=== PATIENT | female | born 1965 | race Caucasian/White ===

== ENCOUNTER → 2017-02-15 | Outpatient (CLI) | payer BC ==
[2017-02-15 09:17] LABS: EKG EKG PERFORMED
[2017-02-15 09:54] LABS: CH 29.3; CHCM 31.7; HCT 40.8 % (34.0-46.0); HGB 12.8 gm/dL (11.4-16.0); MCH 29.1 pg (25.0-35.0); MCHC 31.4 g/dL (31.0-37.0); MCV 92.9 fL (80.0-100.0); Mean Platelet Volume 8.7; RBC 4.39 m/uL (3.80-5.40); RDW 13.7 % (11.5-15.5); WBC 4.7 k/uL (3.8-10.6)
[2017-02-15 10:19] LABS: ALT 29 U/L (9-52); AST 30 U/L (14-36); Alkaline Phosphatase 105 U/L (38-126); Anion Gap 11 mmol/L; Blood Urea Nitrogen 14 mg/dL (7-17); Calcium 9.2 mg/dL (8.4-10.2); Carbon Dioxide 24 mmol/L (22-30); Chloride 105 mmol/L (98-107); Glucose 90 mg/dL (74-99); Non-African American GFR(MDRD) >60 (>60 ml/min/1.73 sqM); Potassium 4.4 mmol/L (3.5-5.1); Sodium 140 mmol/L (137-145); Total Bilirubin 0.5 mg/dL (0.2-1.3); Total Protein 7.3 g/dL (6.3-8.2)
== END | disposition home or self-care (01) ==
LOC: LABPAT 09:09
PROVIDERS: ATTEND Surgery
DX: Z01.810 Encounter for preprocedural cardiovascular examination (principal); Z01.812 Encounter for preprocedural laboratory examination
CPT/HCPCS: 80053; 85027; 93005

== ENCOUNTER 2017-02-18 06:51 | Day surgery (SDC) | payer BC, OTHER ==
[2017-02-12 14:00] VITALS: BMI 33.3
[~2017-02-18 06:51] MED LIST: LACTATED RINGERS 1,000 ML IV SCH
[2017-02-18] MEDS ORDERED: LACTATED RINGERS 1,000 ML IV ONE (07:07)
[2017-02-18 07:13] VITALS: TEMP 97.5
[2017-02-18] MEDS ORDERED: PROPOFOL 10 MG/ML 20 ML VIAL IV ONE (07:31)
--- NOTE | 2017-02-18 08:05 | P.OP ---
Date of Procedure: 02/18/17 Preoperative Diagnosis: Screening rectal prolapse. Family history of colon CVA in apparent. Postoperative Diagnosis: Normal colonoscopy. Long redundant sigmoid colon. Procedure(s) Performed: Colonoscopy. Implants: Anesthesia: MAC Surgeon: Chad Pulido Estimated Blood Loss (ml): 0 Pathology: none sent Condition: stable Disposition: same day Indications for Procedure: Rectal prolapse. Family history of colon CA in apparent. Patient the is otherwise asymptomatic. Has the colonoscopy more than 7 years ago. Follow-up was recommended and informed consent was obtained. Operative Findings: Long redundant sigmoid colon otherwise normal colonoscopy. No polyps or neoplasms were seen. Description of Procedure: With the patient in the left lateral position rectal digital examination was normal there no palpable masses. The video colonoscope was inserted transanally and advanced all the way to the cecum which was entered without visualized. Procedure was very difficult because of the long redundant the colon mostly in the sigmoid area. Findings no polyps or neoplasms were seen. Patient is scheduled for sigmoid resection tomorrow. Would recommend a follow-up colonoscopy in about 5 years in view of family history.
[2017-02-18 08:29] VITALS: RESP 18
[2017-02-18 08:38] VITALS: BP 123/74; PULSE 74
== END 2017-02-18 08:43 | disposition home or self-care (01) ==
LOC: ORWHC2ENDO 06:51
PROVIDERS: ATTEND Surgery
DX: Q43.8 Other specified congenital malformations of intestine (principal); Z80.0 Family history of malignant neoplasm of digestive organs; Z98.84 Bariatric surgery status; Z79.899 Other long term (current) drug therapy
CPT/HCPCS: 45378; J2704

== ENCOUNTER 2017-02-19 07:00 | Inpatient (IN) | payer BC, OTHER ==
[2017-02-12 13:53] VITALS: BMI 33.3
[~2017-02-19 07:00] MED LIST changes: +DEXAMETHASONE SOD PHOSPHATE 10 MG/ML 1 ML VIAL IV ONE; +HEPARIN SODIUM,PORCINE 5,000 UNIT/ML 1 ML VIAL SQ ONE; +HYDROmorphone 1 MG/ML 1 ML SYRINGE IVP PRN; -LACTATED RINGERS 1,000 ML IV SCH; +ONDANSETRON 4 MG/2 ML VIAL IVP ONE; +SCOPOLAMINE 1.5MG/72HR PATCH TRANSDERM ONE; +ceFAZolin 2 GM in SODIUM CHLORIDE 0.9% 100 ML IVPB ONE; +metroNIDAZOLE-NS PMX 500 MG in SALINE 1 100ML.BAG IVPB ONE
[2017-02-19] MEDS: LACTATED RINGERS 1,000 ML IV SCH (10:28)
[2017-02-19] MEDS ORDERED: LIDOCAINE 1% 20 ML VIAL (10MG/ML) FOR IV START INTRADERMA ONE (10:40)
[2017-02-19 10:46] LABS: Glucose,Whole Blood 74 mg/dL (75-99)
[2017-02-19] MEDS: MIDAZOLAM 2 MG/2 ML VIAL IV PRN ×2 (10:48→11:02)
[2017-02-19] MEDS ORDERED: fentaNYL (PF) 50 MCG/ML 2 ML AMP IV ONE (11:25)
[2017-02-19] MEDS ORDERED: NALOXONE 0.4 MG/ML 1 ML VIAL IV PRN (11:39)
[2017-02-19] MEDS ORDERED: ONDANSETRON 4 MG/2 ML VIAL IVP PRN (11:39)
[2017-02-19] MEDS ORDERED: NALBUPHINE 10 MG/ML AMPUL IV PRN (11:39)
[2017-02-19] MEDS ORDERED: HEPARIN SODIUM,PORCINE 5,000 UNIT/ML 1 ML VIAL SQ ONE ×2 (12:00→12:53)
[2017-02-19] MEDS ORDERED: SUCCINYLCHOLINE CHLORIDE 100 MG/5 ML SYR IV ONE (12:48)
[2017-02-19] MEDS ORDERED: LIDOCAINE 1% INJ 10MG/ML (20 ML MDV) ONE (12:48)
[2017-02-19] MEDS ORDERED: PROPOFOL 10 MG/ML 20 ML VIAL IV ONE (12:48)
[2017-02-19] MEDS ORDERED: NEOSTIGMINE 1 MG/ML 10 ML VIAL ONE (12:48)
[2017-02-19] MEDS ORDERED: GLYCOPYRROLATE 0.2 MG/ML 2 ML VIAL ONE (12:48)
[2017-02-19] MEDS ORDERED: fentaNYL (PF) 50 MCG/ML 2 ML AMP ONE (12:48)
[2017-02-19] MEDS ORDERED: MIDAZOLAM 2 MG/2 ML VIAL ONE (12:48)
[2017-02-19] MEDS ORDERED: ROCURONIUM BROMIDE 10 MG/ML 10 ML VIAL IV ONE (12:48)
[2017-02-19] MEDS ORDERED: PHENYLEPHRINE-0.9% NACL SYG 1 MG/10 ML SYRINGE ONE (12:48)
[2017-02-19] MEDS ORDERED: ALVIMOPAN 12 MG CAPSULE PO ONE (12:53)
[2017-02-19] MEDS ORDERED: Antibiotics per Pharmacy 1 EACH MISC MISCELLANE PRN (12:53)
[2017-02-19] MEDS ORDERED: ACETAMINOPHEN TAB 500 MG TAB PO ONE (12:53)
[2017-02-19] MEDS ORDERED: LACTATED RINGERS 1,000 ML IV ONE ×3 (13:20→14:58)
[2017-02-19] MEDS: BUPIVACAINE (PF) 0.5% 50 ML, HYDROMORPHONE (PF) 5 MG in SODIUM CHLORIDE 0.9% 200 ML EPIDURAL PRN (15:12)
--- NOTE | 2017-02-19 15:20 | P.OP ---
Date of Procedure: 02/19/17 Preoperative Diagnosis: Complete rectal prolapse. Postoperative Diagnosis: Complete rectal prolapse Procedure(s) Performed: Low anterior rectosigmoid resection with the rectopexy Implants: Anesthesia: GETA, epidural Surgeon: Chad Pulido Estimated Blood Loss (ml): 100 Urine output (ml): 200 Pathology: other (Rectosigmoid colon) Condition: stable Disposition: PACU Indications for Procedure: Complete rectal prolapse symptomatic with protrusion several inches out of the rectum. Operative Findings: Long redundant sigmoid colon. Diverticulosis. Description of Procedure: The patient is a 51-year-old white female with evidence of complete rectal prolapse visualized by the patient as well as by myself in the office. Considering her young age of resection was felt to be the most prominent therapy with rectopexy. Informed consent was obtained. After induction of general anesthesia with placement of epidural catheter and catheter was placed. Both lower extremities were placed in the low lithotomy position. All and perianal area prepped with Betadine and draped. The umbilicus down to the symphysis pubis. Through omental adhesions were lysed away. There was noted some mesh and suture material at the umbilicus from a previous umbilical hernia repairs. The sigmoid colon was fairly long and redundant in the pelvis. No other significant abnormalities were noted. Wound protector and Bookwalter retractor was placed. He had descending and sigmoid colon and upper rectum mobilized by division of lateral peritoneal attachments. The proximal site of resection was selected in the apex of the sigmoid colon close to the junction with the descending colon. The distal site of resection was selected in the upper rectum. The bowel was divided proximally with the BENY stapler. The mesentery was then divided with the LigaSure close to the bowel wall the ureters being identified. The bowel distally was divided with the contour stapler and the specimen removed. 9 mm circular stapled anastomosis was then accomplished in the usual fashion. The stapler was placed through the rectum. There was no tension at the anastomosis and the blood supply was good. Summation of the rectum below the anastomosis to the periosteum of the sacrum with several 3-0 silk sutures on either side. There was no evidence of leakage from the anastomosis when tested under saline with a sigmoidoscope being used to infiltrate the colon through the rectum. The midline incision was then closed with the running #1 double-stranded PDS. Subcutaneous tissues were irrigated and the skin closed with jaron. Dressings were applied. All counts were correct. Blood loss was less than 100 amalgams. The patient remained stable and was transferred to the recovery room good and stable condition.
[2017-02-19 18:01] LABS: Basophils % (A) 0 %; CH 29.3; CHCM 32.2; Eosinophils % (A) 0 %; HCT 39.4 % (34.0-46.0); HGB 12.5 gm/dL (11.4-16.0); Luc # (Auto) 0.02; Luc % (Auto) 0; Lymphocytes # (A) 0.3 k/uL (1.0-4.8); Lymphocytes % (A) 4 %; MCH 29.1 pg (25.0-35.0); MCHC 31.8 g/dL (31.0-37.0); MCV 91.4 fL (80.0-100.0); Mean Platelet Volume 9.2; Monocytes # (A) 0.2 k/uL (0-1.0); Monocytes % (A) 2 %; Neutrophils # (A) 7.2 k/uL (1.3-7.7); Neutrophils % (A) 93 %; RBC 4.31 m/uL (3.80-5.40); RDW 13.6 % (11.5-15.5); WBC 7.7 k/uL (3.8-10.6); WBC (Perox) 7.74
[2017-02-19 18:03] LABS: ALT 31 U/L (9-52); AST 24 U/L (14-36); Alkaline Phosphatase 84 U/L (38-126); Anion Gap 7 mmol/L; Blood Urea Nitrogen 9 mg/dL (7-17); Calcium 8.8 mg/dL (8.4-10.2); Carbon Dioxide 26 mmol/L (22-30); Chloride 107 mmol/L (98-107); Glucose 118 mg/dL (74-99); Non-African American GFR(MDRD) >60 (>60 ml/min/1.73 sqM); Potassium 4.1 mmol/L (3.5-5.1); Sodium 140 mmol/L (137-145); Total Bilirubin 0.5 mg/dL (0.2-1.3); Total Protein 6.2 g/dL (6.3-8.2)
[2017-02-19] MEDS: D5-0.45% NACL WITH KCL 20MEQ/L 1,000 ML IV SCH ×2 (18:22→21:49)
[2017-02-19] MEDS: ACETAMINOPHEN IV (For NPO) 1,000 MG in EMPTY BAG 1 BAG IVPB SCH ×2 (18:24→23:14)
[2017-02-19] MEDS: ceFAZolin 2 GM in SODIUM CHLORIDE 0.9% 100 ML IVPB SCH (21:16)
[2017-02-19] MEDS: HEPARIN SODIUM,PORCINE 5,000 UNIT/ML 1 ML VIAL SQ SCH (21:16)
[2017-02-19] MEDS: diphenhydrAMINE 50 MG/ML 1 ML VIAL IVP PRN (22:10)
[2017-02-20] MEDS: ceFAZolin 2 GM in SODIUM CHLORIDE 0.9% 100 ML IVPB SCH (04:03)
[2017-02-20] MEDS: diphenhydrAMINE 50 MG/ML 1 ML VIAL IVP PRN (04:05)
[2017-02-20] MEDS: LACTATED RINGERS 1,000 ML IV SCH (05:10)
[2017-02-20] MEDS: ACETAMINOPHEN IV (For NPO) 1,000 MG in EMPTY BAG 1 BAG IVPB SCH ×2 (05:13→13:36)
[2017-02-20 07:34] LABS: Basophils % (A) 0 %; CHCM 31.7; Eosinophils % (A) 0 %; HCT 34.7 % (34.0-46.0); HGB 11.6 gm/dL (11.4-16.0); Luc # (Auto) 0.04; Luc % (Auto) 1; Lymphocytes # (A) 0.8 k/uL (1.0-4.8); Lymphocytes % (A) 12 %; MCH 30.7 pg (25.0-35.0); MCHC 33.5 g/dL (31.0-37.0); MCV 91.8 fL (80.0-100.0); Mean Platelet Volume 8.8; Monocytes # (A) 0.4 k/uL (0-1.0); Monocytes % (A) 5 %; Neutrophils # (A) 5.6 k/uL (1.3-7.7); Neutrophils % (A) 82 %; RBC 3.78 m/uL (3.80-5.40); RDW 13.6 % (11.5-15.5); WBC 6.8 k/uL (3.8-10.6); WBC (Perox) 6.87
[2017-02-20 08:14] LABS: Potassium 4.4 mmol/L (3.5-5.1)
--- NOTE | 2017-02-20 09:00 | P.CON ---
Consult Note - . Assessment/Plan:: Patient underwent a low anterior rectosigmoid resection with rectopexy yesterday. The patient is a 51-year-old female who underwent surgery yesterday for prolapsed rectum. I have been asked to see her regarding overall medical condition and concerns. Past medical history: Patient does have underlying history of anxiety and depression along with history of attention deficit disorder. Patient also has history of previous surgeries include lower lumbar surgery at L5-S1 Previous hysterectomy She has had a laparoscopic sling operation for stress incontinence And reduction mammoplasty in the past. Home medications include iron 325 mg daily and multiple vitamin supplement daily Lexapro 20 mg daily Adderall XL 25 mg every morning. No known ALLERGIES Review of systems: Patient denies any unusual headaches or nausea or vomiting. She denies any visual disturbances. Patient denies any cough or chest pain. No fever or chills. She denies any lower extremity edema or urinary symptomatology. Family history: Positive for history of colon cancer. There is also history of coronary artery disease along with diabetes and lupus. Social history: Patient is and lives locally in the area. There is no history of smoking or any excessive alcohol usage. Physical examination: Patient is sitting up in bed alert and oriented. She does seem to be in some distress from abdominal discomfort. Vital signs reveal temperature of 98 with a pulse of 63 and respirations 16. Blood pressure is 95/63 and she is 94% saturated on room air. Head and neck exam unremarkable. Extraocular movements intact. Pupils equal and reactive. Neck supple without JVD or adenopathy detected. Lungs were clear to auscultation. Heart tones were regular without murmurs. Breast and pelvic exam deferred. Abdomen is bandaged. Surgical discomfort present. Extremities revealed compression appliances intact. No unusual edema. Neurologically she is alert and oriented. Moving all extremities without focal weakness. No cranial nerve deficits. Results: CBC showed a white count of 6.8 with a hemoglobin 11.6 and a platelet count of 134. Electrolytes were normal. Yesterday glucose was 118. Albumin was slightly low at 3.4 with a protein of 6.2. Impressions: Patient is post low anterior resection for rectal prolapse yesterday. Patient does have other medical's concerns as listed above. Plans: We will resume her Lexapro for anxiety and depression. Other medications will remain on hold. Patient can be advanced with diet and activity as per surgery. Patient is on DVT prophylaxis with subcu heparin and use of pneumatic appliances. Please call if any medical questions or concerns should arise during this admission.
--- NOTE | 2017-02-20 09:33 | P.PN ---
Progress Note - Text Date: 02/20/2017 Time: 830 The patient is status post, low anterior resection, postoperative day number 1 The patient has no complaints of nausea vomiting or headache. The patient does not complain of any lower extremity numbness or weakness. The epidural is running at 6 mL per hour. The patient's VAS is 2-3-10. The epidural will be maintained and adjusted as needed.
[2017-02-20] MEDS: D5-0.45% NACL WITH KCL 20MEQ/L 1,000 ML IV SCH ×2 (10:25→17:36)
[2017-02-20] MEDS: HEPARIN SODIUM,PORCINE 5,000 UNIT/ML 1 ML VIAL SQ SCH ×2 (10:43→21:41)
[2017-02-20] MEDS: ESCITALOPRAM 20 MG TAB PO SCH (10:43)
[2017-02-20] MEDS: HYDROmorphone 1 MG/ML 1 ML SYRINGE IVP PRN ×3 (10:48→21:56)
--- NOTE | 2017-02-20 13:10 | P.PN ---
Subjective Principal diagnosis: Postop day 1 low anterior resection with rectopexy for prolapse The patient is mildly anxious. She passed a small amount of blood clot per rectum last night, the nurses reported this about 30 mL's. None since then. She also got up to the bathroom this morning and had some bloody drainage from her dressing. This has made her fairly anxious. Pain is incisional. No nausea or vomiting. Objective - Vital Signs Vital signs: Vital Signs Temp 98.0 F 02/20/17 07:00 Pulse 63 02/20/17 07:00 Resp 16 02/20/17 07:00 BP 95/63 02/20/17 07:00 Pulse Ox 94 L 02/20/17 07:00 Intake & Output 02/19/17 02/20/17 02/20/17 18:59 06:59 18:59 Intake Total 3650 500 Output Total 380 1000 Balance 3270 -500 Weight 105.233 kg Intake: IV 3650 500 D5-0.45% NaCl with KCl 500 20Meq/l 1,000 ml @ 125 mls/hr IV .[facility]H [facility] Rx#: [id number] Output: Urine 280 1000 Estimated Blood Loss 100 Other: Voiding Method Indwelling Catheter Indwelling Catheter # Bowel Movements 1 - Constitutional General appearance: Present: cooperative, no acute distress - Respiratory Respiratory: bilateral: CTA - Cardiovascular Rhythm: regular - Gastrointestinal General gastrointestinal: Present: decreased bowel sounds, soft Localized gastrointestinal: surgical scar: diffuse ( the dressing has some blood clot present under it. It was removed. there is no significant hematoma under the incision. No area where there is any blood oozing. A small amount of adherent clot is present from the upper portion of the incision. A pressure dressing was placed there in the remainder the dressing was changed.) - Labs CBC & Chem 7: 02/20/17 06:49 02/20/17 06:49 Labs: Abnormal Lab Results - Last 24 Hours (Table) 02/19/17 02/19/17 02/20/17 Range/Units 17:40 17:40 06:49 RBC 3.78 L (3.80-5.40) m/uL Plt Count 140 L 134 L (150-450) k/uL Lymphocytes # 0.3 L 0.8 L (1.0-4.8) k/uL Glucose 118 H (74-99) mg/dL Total Protein 6.2 L (6.3-8.2) g/dL Albumin 3.4 L (3.5-5.0) g/dL Assessment and Plan (1) Rectal prolapse Status: Acute Plan: The amount of bleeding she had rectal he is likely due to some oozing from the anastomosis. There is no sign of ongoing bleeding from the incision. With the nurse approximately 2 hours after a change the dressing and it still was dry. We'll recheck a CBC on her. Progressing slowly.
[2017-02-20] MEDS: BUPIVACAINE (PF) 0.5% 50 ML, HYDROMORPHONE (PF) 5 MG in SODIUM CHLORIDE 0.9% 200 ML EPIDURAL PRN (16:32)
[2017-02-20 18:40] LABS: CH 28.6; CHCM 30.7; HCT 35.6 % (34.0-46.0); HDW 2.46; HGB 11.3 gm/dL (11.4-16.0); Hypochromasia Slight; MCH 29.8 pg (25.0-35.0); MCHC 31.8 g/dL (31.0-37.0); MCV 93.6 fL (80.0-100.0); Mean Platelet Volume 8.8; RDW 13.4 % (11.5-15.5); WBC 6.2 k/uL (3.8-10.6)
[2017-02-21] MEDS: ONDANSETRON 4 MG/2 ML VIAL IVP PRN ×2 (00:39→10:56)
[2017-02-21] MEDS: HYDROmorphone 1 MG/ML 1 ML SYRINGE IVP PRN ×2 (01:48→13:31)
[2017-02-21] MEDS: D5-0.45% NACL WITH KCL 20MEQ/L 1,000 ML IV SCH ×3 (01:50→17:40)
[2017-02-21 06:37] LABS: CH 28.9; CHCM 31.7; HCT 33.3 % (34.0-46.0); HDW 2.47; MCH 30.4 pg (25.0-35.0); MCHC 33.2 g/dL (31.0-37.0); MCV 91.6 fL (80.0-100.0); Mean Platelet Volume 8.9; RBC 3.63 m/uL (3.80-5.40); RDW 13.5 % (11.5-15.5); WBC 6.1 k/uL (3.8-10.6)
[2017-02-21] MEDS: LACTATED RINGERS 1,000 ML IV SCH (06:57)
[2017-02-21] MEDS: ESCITALOPRAM 20 MG TAB PO SCH (08:58)
[2017-02-21] MEDS: HEPARIN SODIUM,PORCINE 5,000 UNIT/ML 1 ML VIAL SQ SCH ×2 (08:59→20:28)
--- NOTE | 2017-02-21 10:08 | P.PN ---
Progress Note - Text Date: 02/21/2017 Time: 0 959 The patient is status post, low anterior resection, postoperative day number 2. The patient has no complaints of nausea vomiting or headache. The patient does not complain of any lower extremity numbness or weakness. The epidural is running at 6 mL per hour. VAS is 2-10. The epidural will be maintained and adjusted as needed.
--- NOTE | 2017-02-21 10:47 | P.PN ---
Progress Note - Text Patient is a 51-year-old female who 2 days previous underwent low anterior rectosigmoid resection with rectopexy for prolapsed rectum. She does have underlying history of depression and attention deficit disorder. But today she is up ambulating in the [place]. She denies any chest pain or unusual shortness of breath. No nausea or vomiting. Vital signs reveal temperature 98.3 with a pulse of 76 and respirations 17. Blood pressure 123/87 and she is 99% saturated on room air. Lung and heart examinations unremarkable. No neurological deficits. Laboratory results White count is 6.1 with a hemoglobin of 11 and a platelet count of 111. Impressions and plans: Patient overall appears to be doing well post surgery as described above. Continue to progress as per surgery.
--- NOTE | 2017-02-21 11:49 | P.PN ---
Subjective Principal diagnosis: Status post low anterior resection with rectopexy for prolapse Patient's postop day 2 low anterior resection. She said she had a bad night due to anxiety. He is getting out of bed and walking. Passing a small amount of flatus and a small amount of clot. She's having belching and heartburn. No vomiting. Objective - Vital Signs Vital signs: Vital Signs Temp 98.3 F 02/21/17 07:00 Pulse 76 02/21/17 07:00 Resp 17 02/21/17 07:00 BP 123/87 02/21/17 07:00 Pulse Ox 99 02/21/17 07:00 Intake & Output 02/20/17 02/21/17 02/21/17 18:59 06:59 18:59 Intake Total 1060 1660.5 Output Total 503 522 3643 Balance 410 1060.5 -2200 Intake: IV 1000 1312.5 D5-0.45% NaCl with KCl 1000 1312.5 20Meq/l 1,000 ml @ 125 mls/hr IV .Q8H [facility] Rx#: [id number] Intake, IV Titration 48 Amount Bupivacaine (Pf) 0.5% 50 48 ml Hydromorphone (Pf) 5 mg In Sodium Chloride 0.9 % 200 ml @ Per Protocol EPIDURAL .Q0M PRN Rx#: [id number] Oral 60 300 Output: Urine 173 200 7135 Uretheral ([place]) 2200 Other: Voiding Method Indwelling Catheter Indwelling Catheter Indwelling Catheter - Constitutional General appearance: Present: cooperative, no acute distress - Gastrointestinal General gastrointestinal: Present: decreased bowel sounds, soft Localized gastrointestinal: surgical scar: diffuse (Sinks intact clean and dry) - Labs CBC & Chem 7: 02/21/17 06:18 02/20/17 06:49 Labs: Abnormal Lab Results - Last 24 Hours (Table) 02/20/17 02/21/17 Range/Units 18:01 06:18 RBC 3.63 L (3.80-5.40) m/uL Hgb 11.3 L 11.0 L (11.4-16.0) gm/dL Hct 33.3 L (34.0-46.0) % Plt Count 136 L 111 L (150-450) k/uL Assessment and Plan (1) Rectal prolapse Status: Acute Plan: The patient's hemoglobin has remained stable. She is concerned she is " bleeding inside". She's been hemodynamically stable. Her hemoglobins remained fairly stable. Anxiety level appears fairly high. We'll add some Reglan for her belching and nausea. Ulcer prophylaxis. Progressing slowly.
[2017-02-21] MEDS: FAMOTIDINE 20 MG TAB PO SCH ×2 (12:09→20:27)
[2017-02-21] MEDS: BUPIVACAINE (PF) 0.5% 50 ML, HYDROMORPHONE (PF) 5 MG in SODIUM CHLORIDE 0.9% 200 ML EPIDURAL PRN (15:31)
[2017-02-21] MEDS: METOCLOPRAMIDE 5 MG/ML 2 ML VIAL IVP SCH ×2 (16:53→23:07)
[2017-02-22] MEDS: D5-0.45% NACL WITH KCL 20MEQ/L 1,000 ML IV SCH ×3 (00:56→17:01)
[2017-02-22] MEDS: METOCLOPRAMIDE 5 MG/ML 2 ML VIAL IVP SCH ×4 (05:27→23:14)
[2017-02-22] MEDS: LACTATED RINGERS 1,000 ML IV SCH (05:30)
--- NOTE | 2017-02-22 06:22 | P.PN ---
Progress Note - Text Date: 02/22/2017 Time: The patient is status post, low anterior resection postoperative day number 3 The patient has no complaints of nausea vomiting or headache. The patient does not complain of any lower extremity numbness or weakness. The epidural is running at 6 mL per hour. The epidural will be discontinued this morning. Pain medicines will be provided the patient by the service.
[2017-02-22] MEDS: FAMOTIDINE 20 MG TAB PO SCH ×2 (08:30→21:07)
[2017-02-22] MEDS: ESCITALOPRAM 20 MG TAB PO SCH (08:30)
[2017-02-22] MEDS: HEPARIN SODIUM,PORCINE 5,000 UNIT/ML 1 ML VIAL SQ SCH ×2 (08:31→21:07)
--- NOTE | 2017-02-22 09:18 | P.PN ---
Progress Note - Text The patient is day 30 post-sigmoid resection. Passing flatus. Tolerating a liquid diet. Ambulating. She is afebrile. Vitals are stable. Abdomen is fairly soft. Incision looks fine with no active bleeding. WBC is normal and hemoglobin is stable. Impression. Stable postop. Progressive improvement. Recommendation. Off diet. GORDON [place]. Epidural is out.. Hopefully discharge in the next day or 2.
--- NOTE | 2017-02-22 10:30 | P.PN ---
Progress Note - Text Patient is a 51-year-old female who 3 days previous underwent a low anterior rectosigmoid resection for prolapsed rectum. She has been up ambulating and has had her catheters removed. She denies any chest pain or shortness of breath. Vital signs reveal temperature 97.5 with a pulse of 82 and respirations 14. Blood pressure is 114/80 and she is 97% saturated on room air. Lung and heart examination is clear. No unusual edema. No focal neurological changes. No new labs. Impressions and plans: Patient overall continues to be recovering well from her surgery. Continue to advance as per surgery. Please call if any medical questions, concerns or problems should arise.
[2017-02-22] MEDS: HYDROcodone/APAP 7.5-325MG 1 EACH TAB PO PRN ×2 (10:52→16:59)
[2017-02-22] MEDS: traMADol 50 MG TAB PO SCH ×3 (12:10→22:11)
[2017-02-22] MEDS: HYDROmorphone 1 MG/ML 1 ML SYRINGE IVP PRN ×4 (15:28→23:14)
[2017-02-22 23:21] VITALS: PULSE 85
[2017-02-23] MEDS: HYDROcodone/APAP 7.5-325MG 1 EACH TAB PO PRN ×2 (00:01→06:51)
[2017-02-23] MEDS: D5-0.45% NACL WITH KCL 20MEQ/L 1,000 ML IV SCH ×2 (01:07→11:18)
[2017-02-23] MEDS: HYDROmorphone 1 MG/ML 1 ML SYRINGE IVP PRN ×3 (03:05→08:46)
[2017-02-23] MEDS: LACTATED RINGERS 1,000 ML IV SCH (03:59)
[2017-02-23 07:20] VITALS: BP 134/74; RESP 20; TEMP 96.7
[2017-02-23] MEDS: HEPARIN SODIUM,PORCINE 5,000 UNIT/ML 1 ML VIAL SQ SCH (08:41)
[2017-02-23] MEDS: FAMOTIDINE 20 MG TAB PO SCH (08:46)
[2017-02-23] MEDS: ESCITALOPRAM 20 MG TAB PO SCH (08:46)
[2017-02-23] MEDS: traMADol 50 MG TAB PO SCH (08:46)
--- NOTE | 2017-02-23 10:32 | P.DS ---
Providers Date of admission: 02/19/17 09:43 Expected date of discharge: 02/23/17 Attending physician: Chad Pulido Consults: 02/19/17 12:53 Consult Physician Routine Consulting Provider: Randy Nelson Consult Reason/Comments: Med. Mx Do you want consulting provider notified?: Yes Primary care physician: Randy Nelson - Discharge Diagnosis(es) (1) Rectal prolapse Current Visit: Yes Status: Acute Hospital Course: The patient presented for low anterior resection due to prolapse. She underwent surgery without difficulty. She had some rectal bleeding from the anastomosis and some oozing from the incision edge quickly resolved. She is able to be increased on her diet and activity. By 02/23 she was felt to be stable for discharge Patient Condition at Discharge: Good Plan - Discharge Summary New Discharge Prescriptions: New Hydrocodone/Acetaminophen [[place] 5-325] 1 each PO Q4HR PRN #20 tab PRN Reason: Moderate Pain No Action Multivitamins, Thera [Multivitamin (formulary)] 1 tab PO DAILY Ferrous Sulfate [Feosol] 325 mg PO DAILY Escitalopram [Lexapro] 20 mg PO DAILY Dextroamphetamine/Amphetamine [Adderall Xr] 25 mg PO QAM Discharge Medication List Dextroamphetamine/Amphetamine [Adderall Xr] 25 mg PO QAM 02/12/17 [History] Escitalopram [Lexapro] 20 mg PO DAILY 02/12/17 [History] Ferrous Sulfate [Feosol] 325 mg PO DAILY 02/12/17 [History] Multivitamins, Thera [Multivitamin (formulary)] 1 tab PO DAILY 02/12/17 [History ] Hydrocodone/Acetaminophen [[place] 5-325] 1 each PO Q4HR PRN #20 tab 02/22/17 [Rx] Follow up Appointment(s)/Referral(s): Cahd Pulido MD [STAFF PHYSICIAN] - 1 Week Activity/Diet/Wound Care/Special Instructions: Soft diet, may shower, resume home meds, no heavy lifting for 1 month. Discharge Disposition: HOME SELF-CARE
== END 2017-02-23 11:28 | disposition home or self-care (01) | DRG 331 ==
LOC: 2ORMAIN 09:43 → 3SUR 15:12 → 6PED 02-22 20:23 → 4MS4W 02-22 20:31
PROVIDERS: ADMIT Surgery; ATTEND Surgery
PROC: 0DSP0ZZ Reposition Rectum, Open Approach (ICD-10-PCS; principal; 2017-02-19 11:45)
PROC: 0DBN0ZZ Excision of Sigmoid Colon, Open Approach (ICD-10-PCS; principal; 2017-02-19 11:45)
DX: K62.3 Rectal prolapse (principal); F32.9 Major depressive disorder, single episode, unspecified; K57.90 Diverticulosis of intestine, part unspecified, without perforation or abscess without bleeding; F41.9 Anxiety disorder, unspecified; Z79.899 Other long term (current) drug therapy; Z82.49 Family history of ischemic heart disease and other diseases of the circulatory system; Z83.3 Family history of diabetes mellitus
CPT/HCPCS: 80051; 80053; 84132; 85025; 85027; 86850; 86900; 86901

== ENCOUNTER 2017-03-09 23:03 | Inpatient (IN) | payer BC ==
[2017-03-09] MEDS ORDERED: MORPHINE SULFATE 4 MG/ML SYRINGE IV ONE (23:31)
[2017-03-09] MEDS ORDERED: ONDANSETRON 4 MG/2 ML VIAL IVP STA (23:31)
--- NOTE | 2017-03-09 23:33 | ED ---
Abdominal Pain HPI - General Chief Complaint: Abdominal Pain Stated Complaint: Post op- Abd pain Time Seen by Provider: 03/09/17 23:18 Source: patient Mode of arrival: wheelchair Limitations: no limitations - History of Present Illness Initial Comments: Patient is a 51-year-old female who presents to the ED this evening for evaluation of acute abdominal pain. Patient reports she underwent a colon resection for rectal prolapse on February [address] Pulido. She was discharged home on February 23. Patient reports that postoperatively she experienced significant constipation for which Dr. Pulido advised her to take milk of magnesia. Patient states that throughout the day today she has had multiple episodes of nonbloody diarrhea. She reports around 4 PM she developed some abdominal cramping and by 10 PM she had excruciating tearing left lower quadrant abdominal pain. Initial history is limited by the patient's acute condition, she is in excruciating pain in nearly unable to speak. - Related Data Home Medications Medication Instructions Recorded Confirmed Dextroamphetamine/Amphetamine 25 mg PO QAM 02/12/17 02/19/17 [Adderall Xr] Escitalopram [Lexapro] 20 mg PO DAILY 02/12/17 02/19/17 Ferrous Sulfate [Feosol] 325 mg PO DAILY 02/12/17 02/19/17 Multivitamins, Thera [Multivitamin 1 tab PO DAILY 02/12/17 02/19/17 (formulary)] Previous Rx's Medication Instructions Recorded Hydrocodone/Acetaminophen [[place] 1 each PO Q4HR PRN #20 tab 02/22/17 5-325] Allergies Allergy/AdvReac Type Severity Reaction Status Date / Time No Known Allergies Allergy Verified 03/09/17 23:09 Review of Systems ROS Statement: Those systems with pertinent positive or pertinent negative responses have been documented in the HPI. ROS Other: All systems not noted in ROS Statement are negative. Gastrointestinal: Reports: abdominal pain, nausea, vomiting, diarrhea, constipation Skin: Reports: other (well healing surgical incision ) Past Medical History Additional Past Medical History / Comment(s): RECTAL PROLAPSE, ? TIA APPROX 5 YRS AGO, FREQUENT UTI'S, HYPOGLYCEMIA-EATS FREQUENTLY,. IRON DEFICIENCY ANEMIA. History of Any Multi-Drug Resistant Organisms: None Reported Past Surgical History: Back Surgery, Bariatric Surgery, Hysterectomy Additional Past Surgical History / Comment(s): GASTRIC BYPASS, PAIN CLINIC PROCEDURES Past Anesthesia/Blood Transfusion Reactions: Previous Problems w/ Anesthesia Additional Past Anesthesia/Blood Transfusion Reaction / Comment(s): WOKE UP DURING LAST PAIN CLINIC PROCEDURE Past Psychological History: ADD/ADHD, Anxiety Smoking Status: Never smoker - Past Family History Mother Family Medical History: Cancer, Deep Vein Thrombosis (DVT) Additional Family Medical History / Comment(s): COLON CANCER General Exam Limitations: no limitations General appearance: alert, in distress, other (Patient appears to be in acute distress, she is leaned over a trashcan heaving, she is diaphoretic with tears rolling down her eyes clutching her left lower abdomen) Head exam: Present: atraumatic, normocephalic, normal inspection Eye exam: Present: PERRL ENT exam: Present: mucous membranes moist Respiratory exam: Present: other (Tachypnea). Absent: wheezes, rales, chest wall tenderness Cardiovascular Exam: Present: tachycardia GI/Abdominal exam: Present: tenderness, guarding, rebound, other (Healing ventral laparotomy incision. Mild erythema to the incision area of approximately 1 cm of dehiscence of the abdominal wound with no purulent drainage noted) Rectal exam: Present: deferred Back exam: Absent: CVA tenderness (R), CVA tenderness (L) Neurological exam: Present: alert, oriented X3 Psychiatric exam: Present: anxious Skin exam: Present: other (Well-healing surgical incision on abdomen). Absent: pallor Course Vital Signs 03/09/17 03/10/17 03/10/17 23:04 00:59 01:03 Temperature 99 F 98.4 F Pulse Rate 109 H 98 88 Respiratory 34 H 18 16 Rate Blood Pressure 136/85 157/62 114/62 O2 Sat by Pulse 98 100 100 Oximetry - Reevaluation(s) Reevaluation #1: Patient reevaluated after morphine. Reports only minimal improvement in pain with morphine. Patient states she cannot take Dilaudid as it makes her sick. 03/10/17 00:40 Reevaluation #2: Patient reevaluated. His much more comfortable after IV fentanyl. 03/10/17 01:37 Medical Decision Making - Medical Decision Making The patient was seen and evaluated Vital signs were reviewed, revealed tachycardia, tachypnea Physical exam concerning for acute abdomen Sepsis workup as well as acute abdominal series were ordered EKG cannot be obtained immediately due to the patient's writhing in pain Morphine and Zofran were ordered Minimal improvement in pain with morphine, fentanyl ordered CT with large post operative abscess, Patient care discussed with Dr. Pulido who requests patient be treated with IV Zosyn, clear liquid diet and admitted Patient and updated and agreeable to plan for admission with IV abx and analgesia Admission orders placed - Lab Data Result diagrams: 03/09/17 23:40 03/09/17 23:40 Lab Results 03/09/17 03/09/17 03/09/17 Range/Units 23:40 23:40 23:40 WBC 12.9 H (3.8-10.6) k/uL RBC 4.73 (3.80-5.40) m/uL Hgb 13.8 (11.4-16.0) gm/dL Hct 43.1 (34.0-46.0) % MCV 91.1 (80.0-100.0) fL MCH 29.2 (25.0-35.0) pg MCHC 32.1 (31.0-37.0) g/dL RDW 14.0 (11.5-15.5) % Plt Count 260 D (150-450) k/uL Neutrophils % 74 % Lymphocytes % 11 % Monocytes % 5 % Eosinophils % 8 % Basophils % 1 % Neutrophils # 9.5 H (1.3-7.7) k/uL Lymphocytes # 1.4 (1.0-4.8) k/uL Monocytes # 0.7 (0-1.0) k/uL Eosinophils # 1.0 H (0-0.7) k/uL Basophils # 0.1 (0-0.2) k/uL PT (9.0-12.0) sec INR (<1.2) APTT (22.0-30.0) sec Sodium 140 (137-145) mmol/L Potassium 4.5 (3.5-5.1) mmol/L Chloride 105 (98-107) mmol/L Carbon Dioxide 24 (22-30) mmol/L Anion Gap 11 mmol/L BUN 15 (7-17) mg/dL Creatinine 0.80 (0.52-1.04) mg/dL Est GFR (MDRD) Af Amer >60 (>60 ml/min/1.73 sqM) Est GFR (MDRD) Non-Af >60 (>60 ml/min/1.73 sqM) Glucose 94 (74-99) mg/dL Plasma Lactic Acid Jani 1.5 (0.7-2.0) mmol/L Calcium 9.6 (8.4-10.2) mg/dL Total Bilirubin 0.4 (0.2-1.3) mg/dL AST 23 (14-36) U/L ALT 32 (9-52) U/L Alkaline Phosphatase 86 (38-126) U/L Total Protein 7.5 (6.3-8.2) g/dL Albumin 4.4 (3.5-5.0) g/dL 03/09/17 Range/Units 23:40 WBC (3.8-10.6) k/uL RBC (3.80-5.40) m/uL Hgb (11.4-16.0) gm/dL Hct (34.0-46.0) % MCV (80.0-100.0) fL MCH (25.0-35.0) pg MCHC (31.0-37.0) g/dL RDW (11.5-15.5) % Plt Count (150-450) k/uL Neutrophils % % Lymphocytes % % Monocytes % % Eosinophils % % Basophils % % Neutrophils # (1.3-7.7) k/uL Lymphocytes # (1.0-4.8) k/uL Monocytes # (0-1.0) k/uL Eosinophils # (0-0.7) k/uL Basophils # (0-0.2) k/uL PT 10.3 (9.0-12.0) sec INR 1.0 (<1.2) APTT 22.4 (22.0-30.0) sec Sodium (137-145) mmol/L Potassium (3.5-5.1) mmol/L Chloride (98-107) mmol/L Carbon Dioxide (22-30) mmol/L Anion Gap mmol/L BUN (7-17) mg/dL Creatinine (0.52-1.04) mg/dL Est GFR (MDRD) Af Amer (>60 ml/min/1.73 sqM) Est GFR (MDRD) Non-Af (>60 ml/min/1.73 sqM) Glucose (74-99) mg/dL Plasma Lactic Acid Jani (0.7-2.0) mmol/L Calcium (8.4-10.2) mg/dL Total Bilirubin (0.2-1.3) mg/dL AST (14-36) U/L ALT (9-52) U/L Alkaline Phosphatase (38-126) U/L Total Protein (6.3-8.2) g/dL Albumin (3.5-5.0) g/dL - EKG Data EKG shows normal: sinus rhythm Rate: normal (EKG taken at 00:March 10 rate is 87, rhythm is normal sinus, normal intervals ME is 114 QRS is 92 QTc is 454. EKG has a poor baseline due to the patient's agitation.) Disposition Clinical Impression: Post-operative wound abscess Disposition: ADMITTED IP TO THIS HOSP Referrals: Randy Nelson MD [Primary Care Provider] - 1-2 days Time of Disposition: 01:58
[2017-03-09] MEDS: SODIUM CHLORIDE 0.9% 500 ML IV SCH (23:38)
[2017-03-10] LABS: Basophils # (A) 0.1 k/uL (0-0.2); Basophils % (A) 1 %; CH 29.3; CHCM 32.3; Eosinophils % (A) 8 %; HCT 43.1 % (34.0-46.0); HGB 13.8 gm/dL (11.4-16.0); Luc # (Auto) 0.13; Luc % (Auto) 1; Lymphocytes # (A) 1.4 k/uL (1.0-4.8); Lymphocytes % (A) 11 %; MCH 29.2 pg (25.0-35.0); MCHC 32.1 g/dL (31.0-37.0); MCV 91.1 fL (80.0-100.0); Mean Platelet Volume 7.9; Monocytes # (A) 0.7 k/uL (0-1.0); Monocytes % (A) 5 %; Neutrophils # (A) 9.5 k/uL (1.3-7.7); Neutrophils % (A) 74 %; RBC 4.73 m/uL (3.80-5.40); WBC 12.9 k/uL (3.8-10.6); WBC (Perox) 11.92
[2017-03-10 00:08] LABS: Partial Thromboplastin Time 22.4 sec (22.0-30.0); Prothrombin Time 10.3 sec (9.0-12.0)
[2017-03-10 00:09] LABS: ALT 32 U/L (9-52); AST 23 U/L (14-36); Alkaline Phosphatase 86 U/L (38-126); Anion Gap 11 mmol/L; Blood Urea Nitrogen 15 mg/dL (7-17); Calcium 9.6 mg/dL (8.4-10.2); Carbon Dioxide 24 mmol/L (22-30); Chloride 105 mmol/L (98-107); Glucose 94 mg/dL (74-99); Non-African American GFR(MDRD) >60 (>60 ml/min/1.73 sqM); Potassium 4.5 mmol/L (3.5-5.1); Sodium 140 mmol/L (137-145); Total Bilirubin 0.4 mg/dL (0.2-1.3); Total Protein 7.5 g/dL (6.3-8.2)
[2017-03-10] MEDS ORDERED: RX INFO: IV CONTRAST WAS GIVEN 1 EACH MISC MISCELLANE PRN (00:17)
[2017-03-10] MEDS ORDERED: fentaNYL (PF) 50 MCG/ML 2 ML AMP IV ONE (00:31)
[2017-03-10] MEDS: SODIUM CHLORIDE 0.9% 500 ML IV SCH ×2 (00:39→02:04)
--- NOTE | 2017-03-10 01:40 | CT ---
EXAM: CT Abdomen and Pelvis With Intravenous Contrast CLINICAL HISTORY: Reason: Pain TECHNIQUE: Axial computed tomography images of the abdomen and pelvis with intravenous contrast. CTDI is 43.8 mGy and DLP is 1737.90 mGy-cm. This CT exam was performed using one or more of the following dose reduction techniques: automated exposure control, adjustment of the mA and/or kV according to patient size, and/or use of iterative reconstruction technique. COMPARISON: CT 01/01/2013. FINDINGS: Lower thorax: No acute findings. ABDOMEN: Liver: Unremarkable. No mass. Gallbladder and bile ducts: Unremarkable. No calcified stones. No ductal dilation. Pancreas: Mild/moderate atrophy seen. Spleen: Unremarkable. No splenomegaly. Adrenals: Unremarkable. No mass. Kidneys and ureters: Unremarkable. No solid mass. No hydronephrosis. Stomach and bowel: Unremarkable. No obstruction. No mucosal thickening. Appendix: No findings to suggest acute appendicitis. PELVIS: Bladder: Unremarkable. No mass. Reproductive: Status post hysterectomy, sigmoid colon resection and reanastomosis. No acute intra-abdominal pathology. ABDOMEN and PELVIS: Intraperitoneal space: Unremarkable. No free air. No significant fluid collection. Bones/joints: No acute fracture. No dislocation. Soft tissues: Postsurgical changes of ventral laparotomy. Infraumbilical peripherally enhancing subcutaneous fluid collection measures 3.9 x 3.9 x 11.4 cm (series 3, image 68). There is surrounding inflammatory subcutaneous fat stranding. Vasculature: Unremarkable. No abdominal aortic aneurysm. Lymph nodes: Unremarkable. No enlarged lymph nodes. IMPRESSION: Postsurgical changes of ventral laparotomy. Infraumbilical peripherally enhancing subcutaneous fluid collection measures 3.9 x 3.9 x 11.4 cm. There is surrounding inflammatory subcutaneous fat stranding. Findings consistent with cellulitis and incisional abscess. Other findings, as above.
--- NOTE | 2017-03-10 01:42 | XR ---
EXAM: XR Abdomen Complete With XR Chest CLINICAL HISTORY: Reason: Pain TECHNIQUE: Frontal view of the chest, frontal view of the abdomen/pelvis and upright view of the abdomen. COMPARISON: No relevant prior studies available. FINDINGS: Lungs: Unremarkable. No consolidation. Pleural space: Unremarkable. No pneumothorax. Heart: Unremarkable. No cardiomegaly. Mediastinum: Unremarkable. Intraperitoneal space: No free air. Gastrointestinal tract: Unremarkable. No significantly abnormal dilation. Bones/joints: Unremarkable. IMPRESSION: Normal chest, abdomen and pelvis x-rays.
[2017-03-10] MEDS ORDERED: ceFAZolin 1,000 MG in DEXTROSE/WATER 1 50ML.BAG IVPB STA (01:44)
[2017-03-10] MEDS ORDERED: NALOXONE 0.4 MG/ML 1 ML VIAL IV PRN (01:52)
[2017-03-10] MEDS ORDERED: ONDANSETRON 4 MG/2 ML VIAL IVP PRN (01:52)
[2017-03-10] MEDS ORDERED: PIPERACILLIN-TAZOBACTAM 3.375 GM in DEXTROSE/WATER 1 50ML.BAG IVPB STA (01:52)
[2017-03-10] MEDS ORDERED: ACETAMINOPHEN TAB 325 MG TAB PO STA (02:23)
[2017-03-10] MEDS: fentaNYL (PF) 50 MCG/ML 2 ML AMP IV PRN ×7 (04:11→22:34)
[2017-03-10 04:41] VITALS: BMI 32.8
[2017-03-10] MEDS: SODIUM CHLORIDE 0.9% 1,000 ML IV SCH ×3 (06:33→12:30)
--- NOTE | 2017-03-10 08:41 | P.GSHP ---
History of Present Illness H&P Date: 03/10/17 Chief Complaint: No abdominal pain The patient is a 51-year-old white female who had a rectosigmoid the resection with rectopexy for of complete rectal prolapse about the little more than 6 weeks ago on 02/19/2017. She did well postoperatively. Became constipated the last few days. Was advised to take some milk of magnesia which she did yesterday and had some stools. She suddenly developed the severe pain in the lower abdomen more in the suprapubic area and to the left side of the pubis. She has a history of chronic pain in that area after a sling procedure for bladder suspension surgery. Pain procedures in that area with local injections without improvement. No definite fever or chills. She presented to the emergency room yesterday the last night. Had a CAT scan which showed a large subcutaneous fluid collection infraumbilically an abscess couldn't be ruled out. Past history well-documented. Bladder suspension surgery. Bariatric surgery. Hysterectomy. Anxiety disorder ADD. Social history. Nonsmoker. She is . Social drinker. ALLERGIES none known. On examination the patient is well-built well-nourished very anxious sobbing appears to be in a lot of discomfort. Temperature is normal. Hydration satisfactory. Head and neck are normal. Heart and lungs are clear. Abdomen shows well-healed midline scar with slight skin separation just the in the upper part. No mass no cellulitis. Marked tenderness in the left side of the incision below the umbilicus. No definite mass. Difficult to examine because of the tenderness. No hernia. Rectal exam shows no impaction no evidence of any mass abnormality other than tenderness. CT as above. Mild leukocytosis. Impression. Collection possible abscess. History of rectosigmoid low anterior resection for rectal prolapse.. ADD. Chronic suprapubic pain. Recommendation. Patient is admitted the on IV antibiotics and IV fluids will attempt CT-guided drainage of the subcutaneous collection. Past Medical History Additional Past Medical History / Comment(s): RECTAL PROLAPSE, ? TIA APPROX 5 YRS AGO, FREQUENT UTI'S, HYPOGLYCEMIA-EATS FREQUENTLY,. IRON DEFICIENCY ANEMIA. History of Any Multi-Drug Resistant Organisms: None Reported Past Surgical History: Back Surgery, Bariatric Surgery, Hysterectomy Additional Past Surgical History / Comment(s): GASTRIC BYPASS, PAIN CLINIC PROCEDURES Past Anesthesia/Blood Transfusion Reactions: Previous Problems w/ Anesthesia Additional Past Anesthesia/Blood Transfusion Reaction / Comment(s): WOKE UP DURING LAST PAIN CLINIC PROCEDURE Past Psychological History: ADD/ADHD, Anxiety Smoking Status: Never smoker - Past Family History Mother Family Medical History: Cancer, Deep Vein Thrombosis (DVT) Additional Family Medical History / Comment(s): COLON CANCER Medications and Allergies Home Medications Medication Instructions Recorded Confirmed Type Dextroamphetamine/Amphetamine 25 mg PO QAM 02/12/17 02/19/17 History [Adderall Xr] Escitalopram [Lexapro] 20 mg PO DAILY 02/12/17 02/19/17 History Ferrous Sulfate [Feosol] 325 mg PO DAILY 02/12/17 02/19/17 History Multivitamins, Thera [Multivitamin 1 tab PO DAILY 02/12/17 02/19/17 History (formulary)] Allergies Allergy/AdvReac Type Severity Reaction Status Date / Time No Known Allergies Allergy Verified 03/09/17 23:09 Surgical - Exam Vital Signs Temp Pulse Resp BP Pulse Ox 99 F 109 H 34 H 136/85 98 03/09/17 23:04 03/09/17 23:04 03/09/17 23:04 03/09/17 23:04 03/09/17 23:04 Results - Labs 03/09/17 23:40 03/09/17 23:40 Abnormal Lab Results - Last 24 Hours (Table) 03/09/17 Range/Units 23:40 WBC 12.9 H (3.8-10.6) k/uL Neutrophils # 9.5 H (1.3-7.7) k/uL Eosinophils # 1.0 H (0-0.7) k/uL Diabetes panel 03/09/17 Range/Units 23:40 Sodium 140 (137-145) mmol/L Potassium 4.5 (3.5-5.1) mmol/L Chloride 105 (98-107) mmol/L Carbon Dioxide 24 (22-30) mmol/L BUN 15 (7-17) mg/dL Creatinine 0.80 (0.52-1.04) mg/dL Glucose 94 (74-99) mg/dL Calcium 9.6 (8.4-10.2) mg/dL AST 23 (14-36) U/L ALT 32 (9-52) U/L Alkaline Phosphatase 86 (38-126) U/L Total Protein 7.5 (6.3-8.2) g/dL Albumin 4.4 (3.5-5.0) g/dL Calcium panel 03/09/17 Range/Units 23:40 Calcium 9.6 (8.4-10.2) mg/dL Albumin 4.4 (3.5-5.0) g/dL Pituitary panel 03/09/17 Range/Units 23:40 Sodium 140 (137-145) mmol/L Potassium 4.5 (3.5-5.1) mmol/L Chloride 105 (98-107) mmol/L Carbon Dioxide 24 (22-30) mmol/L BUN 15 (7-17) mg/dL Creatinine 0.80 (0.52-1.04) mg/dL Glucose 94 (74-99) mg/dL Calcium 9.6 (8.4-10.2) mg/dL Adrenal panel 03/09/17 Range/Units 23:40 Sodium 140 (137-145) mmol/L Potassium 4.5 (3.5-5.1) mmol/L Chloride 105 (98-107) mmol/L Carbon Dioxide 24 (22-30) mmol/L BUN 15 (7-17) mg/dL Creatinine 0.80 (0.52-1.04) mg/dL Glucose 94 (74-99) mg/dL Calcium 9.6 (8.4-10.2) mg/dL Total Bilirubin 0.4 (0.2-1.3) mg/dL AST 23 (14-36) U/L ALT 32 (9-52) U/L Alkaline Phosphatase 86 (38-126) U/L Total Protein 7.5 (6.3-8.2) g/dL Albumin 4.4 (3.5-5.0) g/dL
[2017-03-10] MEDS: PIPERACILLIN-TAZOBACTAM 3.375 GM in DEXTROSE/WATER 1 50ML.BAG IVPB SCH ×2 (10:02→19:22)
[2017-03-10 11:00] LABS: Appearance,Urine Turbid (Clear); Bilirubin,Urine Negative (Negative); Glucose,Urine (UA) Negative (Negative); Ketones,Urine Negative (Negative); Leukocyte Esterase,Urine Negative (Negative); Mucus,Urine Rare /hpf; Nitrite,Urine Negative (Negative); Particle Count 4983; Protein,Urine Trace (Negative); RBC,Urine 3 /hpf (0-5); Squamous Epithelial Cell,Urine 3 /hpf (0-4); UA Billing (MACRO vs. MICRO) MICRO; Uric Acid Crystals,Urine Many /hpf; Urobilinogen,Urine <2.0 mg/dL (<2.0); WBC,Urine <1 /hpf (0-5)
[2017-03-10 11:14] LABS: Specific Gravity,Urine >1.050 (1.001-1.035)
[2017-03-10] MEDS ORDERED: LORazepam 2 MG/ML SYRINGE IV STA (12:14)
--- NOTE | 2017-03-10 13:10 | P.HPIM ---
History of Present Illness The patient is a 51-year-old female who presented to the emergency room with abdominal and left groin discomfort. She had undergone resection for rectal prolapse at the end of last month. She went home on February 23. She states yesterday she was constipated and took some milk of magnesia and subsequent with a bowel movement and straining she developed a pain in the left groin area. She describes the pain as very severe. She denied any nausea or vomiting. She has also had some mild erythema over the distal ventral wound area. Past medical history: Patient also has underlying history of anxiety and depression. Also history of attention deficit disorder. She's had previous surgeries include lumbar surgery at L5 and S1 and a previous hysterectomy. She also had had a previous laparoscopic sling operation for stress incontinence And previous mammoplasty for breast reduction. No known ALLERGIES Home medications included multiple vitamins. She was on [place] 5-325 for pain Also has been on Feosol 325 daily along with Lexapro 20 mg for depression and Adderall XL 25 mg every morning. Review of systems: As in history of present illness. Patient denies any fever or chills. No unusual headaches. No nausea or vomiting. No chest pain or shortness of breath or cough. No definite dysuria or hematuria noted. No leg edema. Physical examination: Patient appears very anxious. Tremulous at times. Vital signs reveal temperature 90.7 with a pulse of 69 respirations 20. Blood pressure is 122/70 and she is 99% saturated on room air. Head and neck exam unremarkable. Lung and heart clear and regular. Abdomen does not appear to be distended. There is some mild erythema around the surgical wound. She did not appear to have any major tenderness in the right side of the abdomen. But seem to manifest marked guarding and discomfort towards the left lower quadrant and suprapubic area. Does not does not appear to be any major drainage from the wound. It overall looks clean. Extremities show no edema. Cranial nerves are intact. She is alert and oriented. No focal neurological deficits noted. Laboratory results: White count is 12.9 with hemoglobin 13.8 and platelet count 260. Mild increase in neutrophils. INR is 1.0. Electrolytes were normal. GFR greater than 60. Liver function tests all good. Urinalysis revealed less than 1 white cell. Negative leukocyte esterase. 3 RBCs noted. Computed tomography scan of the abdomen and pelvis revealed the postsurgical changes. Apparently there was some enhancing subcutaneous fluid and surrounding inflammatory fat stranding consistent with cellulitis and possible incisional abscess. Impressions: Possible underlying wound infection and cellulitis. Status post surgery for rectal prolapse last month. Question whether all the abdominal pain is secondary to the underlying wound infection. Have discussed at length with patient and at bedside. Secondary surgical opinion is also given obtained. Continue with antibiotics at this time. Apparently attempts at possible drainage of abscess to be done. Further recommendations pending clinical response and results of above. Patient with concerns that the pain may be secondary to her previous laparoscopic sling operation. Also possibility of pulled muscle versus hernia. Past Medical History Additional Past Medical History / Comment(s): RECTAL PROLAPSE, ? TIA APPROX 5 YRS AGO, FREQUENT UTI'S, HYPOGLYCEMIA-EATS FREQUENTLY,. IRON DEFICIENCY ANEMIA. History of Any Multi-Drug Resistant Organisms: None Reported Past Surgical History: Back Surgery, Bariatric Surgery, Hysterectomy Additional Past Surgical History / Comment(s): GASTRIC BYPASS, PAIN CLINIC PROCEDURES Past Anesthesia/Blood Transfusion Reactions: Previous Problems w/ Anesthesia Additional Past Anesthesia/Blood Transfusion Reaction / Comment(s): WOKE UP DURING LAST PAIN CLINIC PROCEDURE Past Psychological History: ADD/ADHD, Anxiety Smoking Status: Never smoker - Past Family History Mother Family Medical History: Cancer, Deep Vein Thrombosis (DVT) Additional Family Medical History / Comment(s): COLON CANCER Medications and Allergies Home Medications Medication Instructions Recorded Confirmed Type Dextroamphetamine/Amphetamine 25 mg PO QAM 02/12/17 03/10/17 History [Adderall Xr] Escitalopram [Lexapro] 20 mg PO DAILY 02/12/17 03/10/17 History Ferrous Sulfate [Feosol] 325 mg PO DAILY 02/12/17 03/10/17 History Multivitamins, Thera [Multivitamin 1 tab PO DAILY 02/12/17 03/10/17 History (formulary)] Hydrocodone/Acetaminophen [[place] 1 tab PO Q4HR PRN 03/10/17 03/10/17 History 5-325] Allergies Allergy/AdvReac Type Severity Reaction Status Date / Time No Known Allergies Allergy Verified 03/10/17 08:39 Physical Exam Vitals: Vital Signs Temp Pulse Pulse Resp BP BP Pulse Ox 03/10/17 07:37 97.0 F L 69 20 122/70 99 03/10/17 03:57 98.1 F 72 17 122/70 100 03/10/17 03:54 98.0 F 74 16 122/70 98 03/10/17 03:25 98 F 78 16 114/72 99 03/10/17 01:03 98.4 F 88 16 114/62 100 03/10/17 00:59 98 18 157/62 100 03/09/17 23:04 99 F 109 H 34 H 136/85 98 Intake and Output 03/09/17 03/10/17 03/10/17 22:59 06:59 14:59 Intake Total 50 Balance 50 Intake: Oral 50 Other: Weight 104 kg 104 kg Patient Weight 03/11/17 06:59 Weight 104 kg Results CBC & Chem 7: 03/09/17 23:40 03/09/17 23:40 Labs: Abnormal Lab Results - Last 24 Hours (Table) 03/09/17 03/10/17 Range/Units 23:40 09:15 WBC 12.9 H (3.8-10.6) k/uL Neutrophils # 9.5 H (1.3-7.7) k/uL Eosinophils # 1.0 H (0-0.7) k/uL Urine Appearance Turbid H (Clear) Ur Specific [place] >1.050 H (1.001-1.035) Urine Protein Trace H (Negative) Uric Acid Crystals Many H (None) /hpf Urine Mucus Rare H (None) /hpf Thrombosis Risk Factor Assmnt - Choose All That Apply Each Factor Represents 1 point: Age 41-60 years, History of prior major surgery (<1month) Thrombosis Risk Factor Assessment Total Risk Factor Score: 2 Thrombosis Risk Factor Assessment Level: Low Risk
--- NOTE | 2017-03-10 13:55 | US ---
ULTRASOUND GUIDED SUBCUTANEOUS FLUID DRAINAGE TUBE INSERTION: CLINICAL HISTORY: Anterior subcutaneous fluid FINDINGS: The procedure was explained to the patient. The risks, complications, benefits and alternatives were discussed and any questions were answered. Informed consent was obtained. Patient was placed supin e on the ultrasound table and prepped and draped in the usual sterile fashion. Utilizing a 18-gauge needle access into the fluid collection was easily achieved under ultrasound and guidewire is passed. Serial dilation 8 Spanish and placement of an 8 Spanish drainage catheter. Sample sent to pathology fo r analysis. Patient was stable throughout the procedure. Pathology is pending. All elements of maximal barrier and sterile technique were utilized. IMPRESSION: 1. Successful ultrasound guided subcutaneous fluid drainage tube insertion.
--- NOTE | 2017-03-10 18:37 | P.GSCN ---
History of Present Illness Consult date: 03/10/17 Reason for Consult: Abdominal pain postoperative second opinion History of present illness: Patient underwent low anterior resection for the prolapse a few weeks ago. She has had complaints recently of pain in the lower midline extending to the left. Some slightly increased constipation recently. Denies rectal bleeding or melena. She started taking stool softeners as now is having diarrhea. Denies fevers. White blood cell count is slightly elevated. CAT scan shows a anterior bowel wall fluid collection with some fat stranding. The patient was requesting a second opinion regarding appropriate management. At the time that I was evaluating the patient she was rescheduled for a percutaneous drainage of the abdominal wall fluid collection. She states the pain reminds her of an issue she had a few years ago that was thought to be related to stretching of her prior bladder suspension. Review of Systems The patient denies any acute changes in his vision or hearing, no dysphagia or odynophagia, no chest pain or shortness of breath, no dysuria or hematuria, no headache, no runny nose, no rectal bleeding or melena, no unexplained weight loss Past Medical History Additional Past Medical History / Comment(s): RECTAL PROLAPSE, ? TIA APPROX 5 YRS AGO, FREQUENT UTI'S, HYPOGLYCEMIA-EATS FREQUENTLY,. IRON DEFICIENCY ANEMIA. History of Any Multi-Drug Resistant Organisms: None Reported Past Surgical History: Back Surgery, Bariatric Surgery, Hysterectomy Additional Past Surgical History / Comment(s): GASTRIC BYPASS, PAIN CLINIC PROCEDURES Past Anesthesia/Blood Transfusion Reactions: Previous Problems w/ Anesthesia Additional Past Anesthesia/Blood Transfusion Reaction / Comm: WOKE UP DURING LAST PAIN CLINIC PROCEDURE Past Psychological History: ADD/ADHD, Anxiety Smoking Status: Never smoker - Past Family History Mother Family Medical History: Cancer, Deep Vein Thrombosis (DVT) Additional Family Medical History / Comment(s): COLON CANCER Medications and Allergies Home Medications Medication Instructions Recorded Confirmed Type Dextroamphetamine/Amphetamine 25 mg PO QAM 02/12/17 03/10/17 History [Adderall Xr] Escitalopram [Lexapro] 20 mg PO DAILY 02/12/17 03/10/17 History Ferrous Sulfate [Feosol] 325 mg PO DAILY 02/12/17 03/10/17 History Multivitamins, Thera [Multivitamin 1 tab PO DAILY 02/12/17 03/10/17 History (formulary)] Hydrocodone/Acetaminophen [[place] 1 tab PO Q4HR PRN 03/10/17 03/10/17 History 5-325] Allergies Allergy/AdvReac Type Severity Reaction Status Date / Time No Known Allergies Allergy Verified 03/10/17 08:39 Surgical - Exam Vital Signs Temp Pulse Resp BP Pulse Ox 99 F 109 H 34 H 136/85 98 03/09/17 23:04 03/09/17 23:04 03/09/17 23:04 03/09/17 23:04 03/09/17 23:04 Physical exam: General: Well-developed, well-nourished HEENT: Normocephalic, sclerae nonicteric Abdomen: Tenderness lower midline, incision with mild erythema, no drainage, nondistended Extremities: No edema Neuro: Alert and oriented Results - Labs 03/09/17 23:40 03/09/17 23:40 Abnormal Lab Results - Last 24 Hours (Table) 03/09/17 03/10/17 Range/Units 23:40 09:15 WBC 12.9 H (3.8-10.6) k/uL Neutrophils # 9.5 H (1.3-7.7) k/uL Eosinophils # 1.0 H (0-0.7) k/uL Urine Appearance Turbid H (Clear) Ur Specific [place] >1.050 H (1.001-1.035) Urine Protein Trace H (Negative) Uric Acid Crystals Many H (None) /hpf Urine Mucus Rare H (None) /hpf Microbiology - Last 24 Hours (Table) 03/10/17 09:15 Urine Culture - Preliminary Urine,Voided Diabetes panel 03/09/17 Range/Units 23:40 Sodium 140 (137-145) mmol/L Potassium 4.5 (3.5-5.1) mmol/L Chloride 105 (98-107) mmol/L Carbon Dioxide 24 (22-30) mmol/L BUN 15 (7-17) mg/dL Creatinine 0.80 (0.52-1.04) mg/dL Glucose 94 (74-99) mg/dL Calcium 9.6 (8.4-10.2) mg/dL AST 23 (14-36) U/L ALT 32 (9-52) U/L Alkaline Phosphatase 86 (38-126) U/L Total Protein 7.5 (6.3-8.2) g/dL Albumin 4.4 (3.5-5.0) g/dL Calcium panel 03/09/17 Range/Units 23:40 Calcium 9.6 (8.4-10.2) mg/dL Albumin 4.4 (3.5-5.0) g/dL Pituitary panel 03/09/17 Range/Units 23:40 Sodium 140 (137-145) mmol/L Potassium 4.5 (3.5-5.1) mmol/L Chloride 105 (98-107) mmol/L Carbon Dioxide 24 (22-30) mmol/L BUN 15 (7-17) mg/dL Creatinine 0.80 (0.52-1.04) mg/dL Glucose 94 (74-99) mg/dL Calcium 9.6 (8.4-10.2) mg/dL Adrenal panel 03/09/17 Range/Units 23:40 Sodium 140 (137-145) mmol/L Potassium 4.5 (3.5-5.1) mmol/L Chloride 105 (98-107) mmol/L Carbon Dioxide 24 (22-30) mmol/L BUN 15 (7-17) mg/dL Creatinine 0.80 (0.52-1.04) mg/dL Glucose 94 (74-99) mg/dL Calcium 9.6 (8.4-10.2) mg/dL Total Bilirubin 0.4 (0.2-1.3) mg/dL AST 23 (14-36) U/L ALT 32 (9-52) U/L Alkaline Phosphatase 86 (38-126) U/L Total Protein 7.5 (6.3-8.2) g/dL Albumin 4.4 (3.5-5.0) g/dL Assessment and Plan (1) Post-operative wound abscess Narrative/Plan: Agree with current plans. Suspect subcutaneous fluid collection is the etiology of her discomfort. Await cultures from that. May require incision and drainage based on the aspiration findings. Status: Acute
[2017-03-11] MEDS: fentaNYL (PF) 50 MCG/ML 2 ML AMP IV PRN ×4 (03:19→21:38)
[2017-03-11] MEDS: PIPERACILLIN-TAZOBACTAM 3.375 GM in DEXTROSE/WATER 1 50ML.BAG IVPB SCH ×3 (03:36→17:49)
[2017-03-11] MEDS: SODIUM CHLORIDE 0.9% 1,000 ML IV SCH ×3 (03:48→18:04)
[2017-03-11 07:15] LABS: Basophils % (A) 0 %; CH 28.4; CHCM 31.3; Eosinophils # (A) 0.4 k/uL (0-0.7); Eosinophils % (A) 7 %; HCT 32.5 % (34.0-46.0); HDW 2.42; Hypochromasia Slight; Luc # (Auto) 0.09; Luc % (Auto) 1; Lymphocytes # (A) 0.9 k/uL (1.0-4.8); Lymphocytes % (A) 14 %; MCH 29.4 pg (25.0-35.0); MCHC 32.2 g/dL (31.0-37.0); MCV 91.2 fL (80.0-100.0); Mean Platelet Volume 8.8; Monocytes # (A) 0.4 k/uL (0-1.0); Monocytes % (A) 6 %; Neutrophils # (A) 4.5 k/uL (1.3-7.7); Neutrophils % (A) 71 %; RBC 3.56 m/uL (3.80-5.40); RDW 13.7 % (11.5-15.5); WBC 6.3 k/uL (3.8-10.6)
[2017-03-11 07:20] LABS: HGB 10.5 gm/dL (11.4-16.0)
[2017-03-11 07:22] LABS: Anion Gap 7 mmol/L; Blood Urea Nitrogen 6 mg/dL (7-17); Calcium 8.6 mg/dL (8.4-10.2); Carbon Dioxide 25 mmol/L (22-30); Chloride 107 mmol/L (98-107); Glucose 92 mg/dL (74-99); Non-African American GFR(MDRD) >60 (>60 ml/min/1.73 sqM); Potassium 4.1 mmol/L (3.5-5.1); Sodium 139 mmol/L (137-145)
--- NOTE | 2017-03-11 07:50 | P.PN ---
Progress Note - Text The Patient Is a 51-year-old Female Who Presented to the Emergency Room with Left Lower Abdominal and Groin Pain. Today the patient is sitting up at the side of the bed. Still complains of pain especially when trying to move. Some nausea but no vomiting. Vital signs reveal temperature 98.5 with a pulse of 77 respirations 16. Blood pressure 99/57 up to 115/59 and she is 97% saturated on room air. Lungs and heart exam was clear and regular. Laboratory results: White count 6.3 with hemoglobin 10.5 and a platelet count of 169. Electrolytes were normal and GFR is greater than 60. Blood sugar 92. Microbiology cultures are pending. Impressions and plans: Patient appears to be showing some slow improvement with antibiotics and current treatment and at this time would continue such pending culture results.
[2017-03-11] MEDS ORDERED: SODIUM CHLORIDE 0.9% 500 ML IV ONE (08:08)
--- NOTE | 2017-03-11 08:30 | P.PN ---
Progress Note - Text The patient is doing better today. She did have ultrasound-guided drainage of the the abdominal wall fluid which was mostly serosanguineous with more in the bloody side. No purulence. She feels better since the drainage. Has not had a lot of drainage overnight. No nausea or vomiting. On examination the patient is awake alert the stool was greenish. The temperature is normal. Blood pressure little on the low side at 87/50. However asymptomatic. The not particularly pale. Abdomen is soft which the much less tenderness in the left lower quadrant and left groin area. Has a drain in place. The serosanguineous drainage. Impression. Probably a rectus sheath hematoma now liquefying. No evidence of infection abscess or intra-abdominal pathology. Recommendation we will increase her diet. Hopefully discharge in the next day or 2 probably DC the drain tomorrow.
[2017-03-11] MEDS ORDERED: BISACODYL 10 MG SUPP RECTAL STA (12:00)
--- NOTE | 2017-03-11 13:03 | P.PN ---
Subjective Principal diagnosis: Abdominal pain Patient says her pain is improved today after the CT-guided drainage yesterday. There is still an axel colored fluid draining from the catheter. Her white blood cell count is normalized. She did have a low-grade fever of 99.1 last night. Cultures thus far negative. Gram stain was likewise negative for bacteria. Objective - Vital Signs Vital signs: Vital Signs Temp 98.6 F 03/11/17 08:00 Pulse 76 03/11/17 08:00 Resp 16 03/11/17 08:00 BP 87/55 03/11/17 08:00 Pulse Ox 96 03/11/17 08:00 Intake & Output 03/10/17 03/11/17 03/11/17 18:59 06:59 18:59 Intake Total 50 3060 120 Output Total 220 100 Balance -170 2960 120 Weight 104 kg Intake: Intake, IV Titration 2100 Amount Piperacillin-Tazobactam 3 100 .375 gm In Dextrose/Water 1 50ml.bag @ 12.5 mls/hr IVPB Q8H FELIX Rx#: [id number] Sodium Chloride 0.9% 1, 2000 000 ml @ 125 mls/hr IV . Q8H FELIX Rx#:[id number] Oral 50 960 120 Output: Drainage 70 100 Lower Medial Abdomen 70 100 Urine 150 Other: Voiding Method Toilet - Exam Abdomen: Soft, mild lower abdominal tenderness, no rebound or guarding, dressing intact at drain site - Labs CBC & Chem 7: 03/11/17 06:57 03/11/17 06:57 Labs: Abnormal Lab Results - Last 24 Hours (Table) 03/11/17 03/11/17 Range/Units 06:57 06:57 RBC 3.56 L (3.80-5.40) m/uL Hgb 10.5 L D (11.4-16.0) gm/dL Hct 32.5 L (34.0-46.0) % Lymphocytes # 0.9 L (1.0-4.8) k/uL BUN 6 L (7-17) mg/dL Microbiology - Last 24 Hours (Table) 03/10/17 13:55 Gram Stain - Preliminary Aspirate Body Fluid Culture - Preliminary 03/09/17 23:40 Blood Culture - Preliminary Blood No Growth after 24 hours 03/10/17 13:55 Anaerobic Culture - Preliminary Aspirate 03/10/17 09:15 Urine Culture - Preliminary Urine,Voided Assessment and Plan (1) Post-operative wound abscess Narrative/Plan: Continue antibiotics. Continue drainage catheter for now. Advance diet. The patient seems comfortable at this point with the course of therapy. I will be leaving town later this evening. I will sign off at this point. Please recontact if necessary. Status: Acute
[2017-03-12] MEDS: fentaNYL (PF) 50 MCG/ML 2 ML AMP IV PRN (03:07)
[2017-03-12] MEDS: PIPERACILLIN-TAZOBACTAM 3.375 GM in DEXTROSE/WATER 1 50ML.BAG IVPB SCH ×2 (03:15→10:10)
[2017-03-12] MEDS: SODIUM CHLORIDE 0.9% 1,000 ML IV SCH ×2 (07:09→10:10)
--- NOTE | 2017-03-12 07:41 | P.PN ---
Progress Note - Text The patient is a 51-year-old female who last month underwent rectosigmoid resection with rectopexy for a complete rectal prolapse. She has had some recurrent wound and lower abdominal discomfort, likely hematoma versus possible infection. Apparently she has had some increase in her bowel movements through the night and also took some milk of magnesia. Patient and staff states stools are loose but still fairly formed. No apparent blood per rectum. Patient states her pain is still there but the pressure and pain is much improved over the past 24 hours. No fever or chills. No nausea or vomiting. She remains on IV fluids and Zosyn. Vital signs reveal temperature 97.9 with a pulse of 74 and respirations 16. Blood pressure is 109/70 and she is 95% saturated on room air. Repeat vital signs are pending this morning. Lung and heart examination is clear and regular. Abdomen does reveal some mild tenderness in the suprapubic region. No rebound or guarding noted. Bowel sounds are positive. No unusual distal leg edema. No focal neurological deficits. She is alert and oriented. Cultures of blood, urine and wound are still negative. No new labs this morning. Impressions and plans: Patient continues to improve on the present therapy. Diet apparently has been advanced. Surgical notes were regarded. Discussed with patient and staff at bedside. Please call if any questions or concerns.
[2017-03-12 14:38] VITALS: BP 116/71; PULSE 77; RESP 17; TEMP 97.9
--- NOTE | 2017-03-12 16:02 | P.PN ---
Progress Note - Text The patient feels a whole lot better. Minimal pain or discomfort. Had several bowel movements. Did take milk of magnesia yesterday as well as a Dulcolax suppository. Appetite is better. She is afebrile. Vitals are good. She is cheerful and in no distress. Abdomen is soft. The drain which drained mostly serous type of fluid was pretty dry with the last 8 hours that it's had hardly any drainage. His been negative thus far. Suspect she had a rectus sheath hematoma. Recommendation we'll DC the drain. She can be discharged today. We'll follow up with the median Dr. Nelson in about a week. Activity as tolerated. Soft diet. Citrucel 2 tabs daily to regulate her bowel movements. Encouraged to ambulate.
== END 2017-03-12 17:00 | disposition home or self-care (01) | DRG 863 ==
LOC: EC 23:03 → 3SUR 03-10 01:52
PROVIDERS: ADMIT Surgery; ATTEND Surgery
PROC: 0J9830Z Drainage of Abdomen Subcutaneous Tissue and Fascia with Drainage Device, Percutaneous Approach (ICD-10-PCS; principal; 2017-03-10)
DX: T81.4XXA Infection following a procedure, initial encounter (principal); F32.9 Major depressive disorder, single episode, unspecified; S30.1XXA Contusion of abdominal wall, initial encounter; L02.91 Cutaneous abscess, unspecified; D72.829 Elevated white blood cell count, unspecified; F41.9 Anxiety disorder, unspecified; G89.18 Other acute postprocedural pain; R11.0 Nausea; R19.7 Diarrhea, unspecified; R50.9 Fever, unspecified; R06.82 Tachypnea, not elsewhere classified; R00.0 Tachycardia, unspecified; K59.00 Constipation, unspecified; G89.29 Other chronic pain; F90.9 Attention-deficit hyperactivity disorder, unspecified type; Z86.73 Personal history of transient ischemic attack (TIA), and cerebral infarction without residual deficits; Z98.84 Bariatric surgery status; Z79.899 Other long term (current) drug therapy; Z90.710 Acquired absence of both cervix and uterus; Z87.440 Personal history of urinary (tract) infections; Z80.0 Family history of malignant neoplasm of digestive organs; Z79.891 Long term (current) use of opiate analgesic; Z71.3 Dietary counseling and surveillance; Z82.49 Family history of ischemic heart disease and other diseases of the circulatory system; Z87.19 Personal history of other diseases of the digestive system; Z87.448 Personal history of other diseases of urinary system; Y84.8 Other medical procedures as the cause of abnormal reaction of the patient, or of later complication, without mention of misadventure at the time of the procedure
CPT/HCPCS: 36415; 49406; 74022; 74177; 76942; 80048; 80053; 81001; 83605; 85025; 85610; 85730; 87040; 87070; 87075; 87086; 87205; 93005; 96361; 96365; 96375; 99285

== ENCOUNTER → 2017-10-07 | Outpatient (CLI) | payer BC ==
--- NOTE | 2017-10-11 10:03 | MM ---
Reason for exam: screening (asymptomatic). Last mammogram was performed 2 years and 2 months ago. History: Reductions of both breasts. Physical Findings: A clinical breast exam by your physician is recommended on an annual basis and results should be correlated with mammographic findings. MG 3D Screening Mammo W/Cad Bilateral CC and MLO view(s) were taken. Prior study comparison: August 06, 2015, right breast MG 3d work up w/cad RT. August 02, 2015, bilateral MG screening mammo w CAD. The breast tissue is almost entirely fat. No significant changes when compared with prior studies. ASSESSMENT: Benign, BI-RAD 2 RECOMMENDATION: Routine screening mammogram of both breasts in 1 year.
== END | disposition home or self-care (01) ==
LOC: RADMAMWWP 10:59
PROVIDERS: ATTEND Family Medicine
DX: Z12.31 Encounter for screening mammogram for malignant neoplasm of breast (principal)
CPT/HCPCS: 77063; 77067

== ENCOUNTER → 2017-12-18 | Outpatient (CLI) | payer BC ==
[2017-12-18 17:19] LABS: Iron Saturation 8.11 (12.00-45.00)
[2017-12-18 17:30] LABS: Sex Horm Bind Glob 102.4 nmol/L (23.15-159.07); Vitamin D 25 Hydroxy 45.2 ng/mL (30.0-100.0)
== END | disposition home or self-care (01) ==
LOC: LABWHC1 09:25
PROVIDERS: ATTEND Family Medicine
DX: E55.9 Vitamin D deficiency, unspecified (principal); E50.9 Vitamin A deficiency, unspecified; D50.9 Iron deficiency anemia, unspecified; E89.41 Symptomatic postprocedural ovarian failure
CPT/HCPCS: 36415; 82306; 82672; 83540; 83550; 84270; 84402; 84403; 84590

== ENCOUNTER → 2018-01-24 | Outpatient (CLI) | payer BC ==
[2018-01-24 16:07] LABS: Sex Horm Bind Glob 102.6 nmol/L (23.15-159.07)
[2018-01-24 16:10] LABS: Vitamin D 25 Hydroxy 60.9 ng/mL (30.0-100.0)
[2018-01-24 16:28] LABS: Iron Saturation 33.66 (12.00-45.00)
== END | disposition home or self-care (01) ==
LOC: LABWHC1 08:15
PROVIDERS: ATTEND Family Medicine
DX: D50.9 Iron deficiency anemia, unspecified (principal); E55.9 Vitamin D deficiency, unspecified; E50.9 Vitamin A deficiency, unspecified; E89.41 Symptomatic postprocedural ovarian failure
CPT/HCPCS: 36415; 82306; 82672; 82728; 83540; 83550; 84270; 84402; 84403; 84590; 85652

== ENCOUNTER 2018-05-15 13:40 | Emergency (ER) | payer BC ==
[2018-05-15 13:45] VITALS: BP 146/83; PULSE 81; RESP 18; TEMP 98.1
--- NOTE | 2018-05-15 14:04 | ED ---
General Adult HPI - General Chief complaint: Skin/Abscess/Foreign Body Stated complaint: Rash/Hives/Itchy Time Seen by Provider: 05/15/18 13:54 Source: patient, RN notes reviewed Mode of arrival: ambulatory Limitations: no limitations - History of Present Illness Initial comments: Patient 53-year-old female presented to the emergency room today with a chief complaint of rash. She does not that she was stung by bees' week and a half ago. Patient does admit that 5 days later she began having increased itching. States that she started Benadryl. States that the next day when she was at work she was told it could be chickenpox. She states she was sent home she did have blood drawn. Patient states that she is waiting for results. Patient states that she's had increased itching states been taking Benadryl with little relief the symptoms. She denies any complaints or symptoms. Denies any new contacts or any new medications. Patient denies any recent fever, chills, shortness of breath, chest pain, back pain, abdominal pain, nausea or vomiting, numbness or tingling, dysuria or hematuria, constipation or diarrhea, headaches or visual changes, or any other complaints. - Related Data Home Medications Medication Instructions Recorded Confirmed Dextroamphetamine/Amphetamine 25 mg PO QAM 02/12/17 03/10/17 [Adderall Xr] Escitalopram [Lexapro] 20 mg PO DAILY 02/12/17 03/10/17 Ferrous Sulfate [Feosol] 325 mg PO DAILY 02/12/17 03/10/17 Multivitamins, Thera [Multivitamin 1 tab PO DAILY 02/12/17 03/10/17 (formulary)] Hydrocodone/Acetaminophen [Sherman 1 tab PO Q4HR PRN 03/10/17 03/10/17 5-325] Previous Rx's Medication Instructions Recorded Amoxic-Pot Clav 500-125 mg 1 tab PO Q12HR #10 tab 03/12/17 [Augmentin 500-125 mg] Permethrin 5% Cream [Elimite] 1 applic TOPICAL ONCE #1 tube 05/15/18 hydrOXYzine HCL [Atarax] 12 tab PO QID PRN #40 tab 05/15/18 predniSONE 50 mg PO DAILY #5 tab 05/15/18 Allergies Allergy/AdvReac Type Severity Reaction Status Date / Time No Known Allergies Allergy Verified 05/15/18 13:45 Review of Systems ROS Statement: Those systems with pertinent positive or pertinent negative responses have been documented in the HPI. ROS Other: All systems not noted in ROS Statement are negative. Past Medical History Additional Past Medical History / Comment(s): RECTAL PROLAPSE, ? TIA APPROX 5 YRS AGO, FREQUENT UTI'S, HYPOGLYCEMIA-EATS FREQUENTLY,. IRON DEFICIENCY ANEMIA. History of Any Multi-Drug Resistant Organisms: None Reported Past Surgical History: Back Surgery, Bariatric Surgery, Hysterectomy Additional Past Surgical History / Comment(s): GASTRIC BYPASS, PAIN CLINIC PROCEDURES Past Anesthesia/Blood Transfusion Reactions: Previous Problems w/ Anesthesia Additional Past Anesthesia/Blood Transfusion Reaction / Comment(s): WOKE UP DURING LAST PAIN CLINIC PROCEDURE Past Psychological History: ADD/ADHD, Anxiety Smoking Status: Never smoker Past Alcohol Use History: None Reported Past Drug Use History: None Reported - Past Family History Mother Family Medical History: Cancer, Deep Vein Thrombosis (DVT) Additional Family Medical History / Comment(s): COLON CANCER General Exam - General Exam Comments Initial Comments: General: The patient is awake and alert, in no distress, and does not appear acutely ill. Eye: Pupils are equal, round and reactive to light. Extra-ocular movements are intact. No nystagmus. There is normal conjunctiva bilaterally. No signs of icterus. Ears, nose, mouth and throat: There are moist mucous membranes and no oral lesions. Neck: The neck is supple, there is no tenderness or JVD. Cardiovascular: There is a regular rate and rhythm. No murmur, rub or gallop is appreciated. Respiratory: Lungs are clear to auscultation, respirations are non-labored, breath sounds are equal. No wheezes, stridor, rales, or rhonchi. Musculoskeletal: Normal ROM, no tenderness. Sensation intact. Strength 5/5. Pulses equal bilaterally 2+. Neurological: A&O x 3. CN II-XII intact, There are no obvious motor or sensory deficits. Coordination appears grossly intact. Speech is normal. Skin: Patient does have red scattered spots there is no yellow crusting over top. No deep tissue involvement. Scattered to the forearms and across the abdomen and the belt line. Psychiatric: Cooperative, appropriate mood & affect, normal judgment. Limitations: no limitations Course Vital Signs 05/15/18 13:43 Temperature 98.1 F Pulse Rate 81 Respiratory 18 Rate Blood Pressure 146/83 O2 Sat by Pulse 99 Oximetry Medical Decision Making - Medical Decision Making Patient will be given Atarax, steroid, was also discussed about possible scabies patient is advised following up over the next 2 days return here if symptoms increase worsen. Disposition Clinical Impression: Rash Disposition: HOME SELF-CARE Condition: Good Instructions: Acute Rash (ED) Additional Instructions: Please use medication as discussed. Please follow-up with family doctor in the next 2 days of symptoms have not improved. Please return to emergency room if the symptoms increase or worsen or for any other concerns. Prescriptions: hydrOXYzine HCL [Atarax] 12 tab PO QID PRN #40 tab PRN Reason: Itching Permethrin 5% Cream [Elimite] 1 applic TOPICAL ONCE #1 tube predniSONE 50 mg PO DAILY #5 tab Is patient prescribed a controlled substance at d/c from ED?: No Referrals: Aaron Garcia MD [Primary Care Provider] - 1-2 days Time of Disposition: 14:25
== END 2018-05-15 14:40 | disposition home or self-care (01) ==
LOC: EC 13:40
DX: R21 Rash and other nonspecific skin eruption (principal); D50.9 Iron deficiency anemia, unspecified; F90.9 Attention-deficit hyperactivity disorder, unspecified type; F41.9 Anxiety disorder, unspecified; Z86.73 Personal history of transient ischemic attack (TIA), and cerebral infarction without residual deficits; Z79.899 Other long term (current) drug therapy
CPT/HCPCS: 99282

== ENCOUNTER 2019-03-01 13:18 | Observation (INO) | payer BC ==
[~2019-03-01 13:18] MED LIST changes: +ACETAMINOPHEN TAB 500 MG TAB PO ONE; -HEPARIN SODIUM,PORCINE 5,000 UNIT/ML 1 ML VIAL SQ ONE; +HYDROmorphone 0.5 MG/0.5 ML SYRINGE IVP PRN; -HYDROmorphone 1 MG/ML 1 ML SYRINGE IVP PRN; +LIDOCAINE 1% 20 ML VIAL (10MG/ML) FOR IV START INTRADERMA PRN; +MELOXICAM 7.5 MG TAB PO ONE; +ROPIVACAINE 246.25 MG, EPINEPHrine 0.5 MG, KETOROLAC 30 MG, cloNIDine HCL/PF 80 MCG, WA... MISCELLANE ONE; -SCOPOLAMINE 1.5MG/72HR PATCH TRANSDERM ONE; +TRANEXAMIC ACID 1,000 MG in SODIUM CHLORIDE 0.9% 100 ML IVPB ONE; -ceFAZolin 2 GM in SODIUM CHLORIDE 0.9% 100 ML IVPB ONE; +ceFAZolin IN SWFI 2 GM/20 ML SYRINGE IVP ONE; -metroNIDAZOLE-NS PMX 500 MG in SALINE 1 100ML.BAG IVPB ONE
[2019-03-01] MEDS: LACTATED RINGERS 1,000 ML IV SCH ×2 (14:18→23:53)
[2019-03-01] MEDS ORDERED: DEXAMETHASONE SOD PHOSPHATE 10 MG/ML 1 ML VIAL IV ONE (14:18)
[2019-03-01 14:20] LABS: Glucose,Whole Blood 81 mg/dL (75-99)
[2019-03-01] MEDS ORDERED: MIDAZOLAM (PF) 2 MG/2 ML VIAL IVP ONE (14:31)
[2019-03-01] MEDS ORDERED: MORPHINE SULFATE (PF) 0.3 MG/0.3 ML SYR ONE (15:01)
[2019-03-01] MEDS ORDERED: TRANEXAMIC ACID 1,000 MG/10 ML VIAL ONE (15:01)
[2019-03-01] MEDS ORDERED: fentaNYL (PF) 50 MCG/ML 2 ML AMP ONE (15:01)
[2019-03-01] MEDS ORDERED: diphenhydrAMINE 50 MG/ML 1 ML VIAL ONE (15:01)
[2019-03-01] MEDS ORDERED: PHENYLEPHRINE-0.9% NACL SYG 1 MG/10 ML SYRINGE ONE (15:01)
[2019-03-01] MEDS ORDERED: SODIUM CHLORIDE 0.9% 100 ML BAG ONE (15:01)
[2019-03-01] MEDS ORDERED: MIDAZOLAM 2 MG/2 ML VIAL ONE (15:01)
[2019-03-01] MEDS ORDERED: PROPOFOL 10 MG/ML 20 ML VIAL IV ONE (15:01)
[2019-03-01] MEDS ORDERED: LACTATED RINGERS 1,000 ML IV ONE (15:43)
[2019-03-01] MEDS ORDERED: ceFAZolin 3,000 MG in SODIUM CHLORIDE 0.9% IRRIGATIO 3,000 ML IRRIGATION ONE (15:54)
[2019-03-01] MEDS ORDERED: NALOXONE 0.4 MG/ML 1 ML VIAL IV PRN ×2 (16:33→17:38)
[2019-03-01] MEDS ORDERED: ONDANSETRON 4 MG/2 ML VIAL IVP PRN ×2 (16:33→17:38)
[2019-03-01 17:25] LABS: Glucose,Whole Blood 82 mg/dL (75-99)
[2019-03-01] MEDS ORDERED: HYDROcodone/APAP 5-325MG 1 EACH TAB PO PRN (17:38)
[2019-03-01] MEDS ORDERED: TEMAZEPAM 15 MG CAP PO PRN (17:38)
[2019-03-01] MEDS ORDERED: HYDROmorphone 0.5 MG/0.5 ML SYRINGE IVP PRN ×2 (17:38)
[2019-03-01] MEDS ORDERED: BISACODYL 10 MG SUPP RECTAL PRN (17:38)
[2019-03-01] MEDS ORDERED: NA PHOS,M-B/NA PHOS,DI-BA 133 ML ENEMA RECTAL PRN (17:38)
[2019-03-01] MEDS ORDERED: ACETAMINOPHEN TAB 325 MG TAB PO PRN (17:38)
[2019-03-01] MEDS ORDERED: MAGNESIUM HYDROXIDE 2,400 MG/10 ML CUP PO PRN (17:38)
[2019-03-01] MEDS ORDERED: DIAZEPAM 5 MG TAB PO PRN (17:38)
--- NOTE | 2019-03-01 17:47 | XR ---
Right knee 2 views. History postop. Comparison 04/11/2016. FINDINGS: There is a right knee prosthesis. Components are in anatomic position. IMPRESSION: No complicating process seen.
[2019-03-01] MEDS: traMADol 50 MG TAB PO SCH ×2 (19:10→23:40)
--- NOTE | 2019-03-01 19:50 | OP ---
OPERATIVE REPORT DATE OF PROCEDURE: 03/01/2019. SURGEON: Juan Epps MD. FENCE SETTER: Jeromy GAYTAN. PREOPERATIVE DIAGNOSIS: Right knee osteoarthrosis. POSTOPERATIVE DIAGNOSIS: Right knee osteoarthrosis. OPERATION PERFORMED: Right total knee arthroplasty. ANESTHESIA: Spinal with sedation. ESTIMATED BLOOD LOSS: 100 mL. TOURNIQUET: Time was 51 minutes at 250 mmHg. COMPLICATIONS: None apparent. DRAINS: None. DISPOSITION: Postanesthesia care unit. INDICATIONS: Matilde is a very pleasant 53-year-old female with longstanding history of right knee pain. History and physical examination are consist with advanced right knee osteoarthrosis. She has been through significant nonoperative management up to this point. Further treatment options were discussed and she decided to go forward with right total knee arthroplasty. The risks of procedure were discussed with her in detail. These risks include, but are not limited to risk of infection, nerve damage, bleeding, pain, and a small risk of deep vein thrombosis which could lead to fatal pulmonary embolism. There is also risk of loosening of the implant which could require revision operation. The patient understands these risks. All of her questions were answered to her satisfaction. Appropriate informed consent was obtained. DESCRIPTION OF PROCEDURE: The patient identified in the preoperative holding area. Surgical sites marked by both the patient and myself. She was given 2 g of Ancef IV for prophylactic purposes. She was then transferred to the operative suite. She was placed supine on the operative table. Spinal anesthetic was then administered and dosed per the anesthesia department without apparent complication. Examination under anesthesia was then performed. She was 2-3 degrees shy of full extension. She had 100 degrees of flexion. The medial collateral ligament, lateral collateral ligament and posterior cruciate ligaments were stable. A tourniquet was then placed high on the right upper thigh well-padded in preparation for surgery. The patient's right lower extremity was then prepped and draped in usual sterile fashion. Standard surgical pause undertaken to ensure that we were operating on the correct site and that appropriate preoperative antibiotics were given. All staff in the room were in agreement and we proceeded. The outlines of the patella were marked with a surgical pen. A planned 12 cm vertical incision centered over the patella was marked surgical pen. Leg was then exsanguinated with an Esmarch dressing. The knee was then flexed and the tourniquet was inflated to 250 mmHg. The total tourniquet time for the procedure was 51 minutes. Incision was then made with a 10 blade scalpel. Dissection carried down sharply overlying fascia. Great care was taken to minimize the skin flaps. The knee was then exposed using a standard medial parapatellar approach. A small cuff of quadriceps tendon was then left for suturing. She was in a bit of varus preoperatively. A standard medial release was then made. Superficial medial collateral ligament was dissected off the bone around the posterior aspect of the proximal tibia. The medial meniscus was then excised as well. The lateral meniscus was also released anteriorly. The leg was then externally rotated. The patella was everted. The knee was flexed. The retractors then placed to protect the collateral ligaments. I then proceeded to remove the infrapatellar fat pad. It was excised sharply tangentially with the fibers of the patellar tendon. I then proceeded to remove peripheral osteophytes. This was done with a rongeur. I then proceeded with distal femoral resection. She did have near full extension. A planned 9 mm resection was then done. The femoral canal was then entered in midline of the femur approximately 10 mm anterior to the origin of the posterior cruciate ligament. The pa was then advanced down the center of the femur and placed intramedullary. Based on the preoperative radiographs, the angle between the anatomic and mechanical axis of the femur was approximately 4-5 degrees. The valgus angle of the distal femoral cutting guide was then set at 4 degrees for the right knee. This distal femoral cutting guide was then advanced over the intramedullary pa. This was seated firmly against the femur. I then as mentioned planned to take 9 mm off the distal femur. The cutting block was then secured onto the femur with pins. The jig was then removed and the distal femoral cut was made through the slot of the block. The pin was then removed. The distal femoral cut with the cutting block was removed. The accuracy of the distal femoral cuts was checked with 2 flat bars. I then proceed to femoral sizing. The posterior referencing sizing guide was held firmly against the resected distal surface of the femur. The posterior condyles were resting on the posterior plane of the guide. The sizing stylus was then placed on the anterior femur. The size was measured as a size 9. I then assessed for femoral rotation. Plan was for 3 degrees of external rotation. Three degrees of external rotation was placed onto the jig. These holes were then marked. I then confirmed the rotation by 3 separate methods. This done using epicondylar axis as well as Whitesides line and posterior referencing. It was deemed that the external rotation was proper. I then went forward placing the femoral cutting block. This was placed over the previously placed pin holes. The Edson wing was then placed on the anterior slots to ensure that we would not notch the anterior femur with the anterior femoral cut. I then proceed with the anterior femoral cut. This was flush with the anterior cortex of the femur. Posterior cuts were then made followed by the anterior chamfer cut, then the posterior chamfer cut. The cutting block was then removed. Throughout the resection, the collateral ligaments were protected with retractors. I then placed a trial size 9 femur. It fit slightly wide mediolateral was narrow fit very nicely and it fit flush with the distal end of the femur. The drill holes were then made. I then proceeded with the tibial cut. I planned for cruciate retaining knee. The guide was placed and set for varus valgus and for slope. Height set for approximate 2 mm resection from the medial tibial plateau which was the lower side. I was happy with the alignment and amount of resection. The cutting block was then pinned to the proximal tibia. The alignment pa was removed. The proximal tibia was resected with a reciprocating saw. Again, this was done with retractors protecting the collateral ligaments as well as the posterior cruciate ligament. I then proceeded to evaluate the flexion and extension gaps. A 10 mm block was then placed. The flexion-extension gaps were equal. I then proceeded with resection of posterior osteophytes. She had very minimal posterior osteophytes. This was done using a curved osteotome. This resected the posterior osteophytes and posterior capsule stripping was done off the posterior aspect of the femur at this time. The osteophytes were then removed. I then proceed to resection of the patella. The thickness of patella was measured using the caliper. The thickness was 22 mm. The thickness of the anticipated patellar dome was taken into account. Resection was then performed and confirmed to be equal in 4 quadrants using a caliper. Approximately 14 mm of bone remained after resection. A 32 x 8.5 mm standard patellar trial was then placed. The holes were drilled. The trial was then placed. I then proceeded with sizing the tibial plate. A size E tibial plate fit very nicely. I then placed the trial femur in the tibial tray and patellar button. A 10 mm trial tibial insert was also placed. The components fit very nicely. She had full extension and flexion. The extension and flexion gaps were equal and stable to both varus and valgus stress. The patella tracked appropriately. The tibial tray rotation was marked with a Bovie. This was externally rotated properly. I then proceed with tibial preparation. First drilled the femoral holes and removed femoral component. Tibial tray was then set for proper external rotation as well as mediolateral placement onto the tibia. It was then pinned into place. I then proceed with punching the keel. I then decided to proceed with cementing of all of our components. The knee was thoroughly irrigated with sterile saline solution via pulse lavage. The lateral geniculate artery was identified and cauterized. All blood was removed from the bone of the tibia femur and patella with pulse lavage. I then proceed with cementing. Two packs of antibiotic bone cement prepared on the back table by the medical or surgical instrument maker. I then proceeded with cementing the tibia first. The cement was impacted into the keel as well as deeply seated in the bone. A second coat of cement was then placed. The tibia was then impacted into place. Excess cement was removed with Cristiana's and jokers. I then proceed with cementing the femoral component. The femoral component was also cemented using standard technique. Excess cement was removed. A 10 mm trial insert was then placed into the knee. It was brought into full extension with a constant axial load placed until the cement had hardened. The patellar component was then cemented. This held firmly with a compressive device until the cement had dried. When the cement had dried, the knee was taken out of extension. All excess cement was removed from around the prosthesis. I then trialed the knee with a 10 mm insert. Flexion extension gaps were appropriate. Next, the knee was stable with a 10 mm insert. It came into full extension. I decided to go forward with a 10 mm cross- linked cruciate-retaining tibial insert. Polyethylene was then placed onto the tibial tray and locked into place. The knee was then reduced. The knee was again further irrigated with sterile saline solution with antibiotic added. The tourniquet was then deflated. Total tourniquet time for the procedure was 51 minutes at 250 mmHg. Final components were Nicole Persona size 9 narrow cruciate-retaining femoral component size E tibial tray, a 10 mm medial congruent cruciate-retaining tibial polyethylene insert and a 32 x 8.5 mm patella. I then proceeded with closure. Again, the knee was thoroughly irrigated. The quadriceps tendon and the medial retinaculum were reapproximated with #2 Ethibond suture. The extensor mechanism was then closed with a running #2 Quill suture. Subcutaneous tissue was then closed with 2-0 Vicryl interrupted suture. The skin was closed with a running 3-0 Quill suture. Dermabond was applied to the incision. Sterile compressive dressing was then applied. All sponge and needle counts were deemed correct prior to closure. The patient tolerated the procedure without apparent complication. She was transferred to recovery room in stable condition. MMODL / IJN: [id number] /
--- NOTE | 2019-03-01 21:44 | P.CONS ---
History of Present Illness - Reason for Consult Consult date: 03/01/19 Medical manage Requesting physician: Juan Epps - Chief Complaint Right knee surgery - History of Present Illness Consultation: This is a very pleasant 53-year-old patient of Dr. Aaron Garcia. Patient has undergone right total knee arthroplasty by Dr. Epps. Postprocedure some pain is present. Her nausea vomiting. No chest pain or shortness of breath. Family present at the bedside. Tonic stable medical conditions include hypertension, osteoarthritis in other joints, ADD and anxiety, episodes of hypoglycemia. Propped up in bed. Did tolerate a clear liquid diet. Keen to get some more food. Denies any cardiac history. Review of systems: GEN.: Tired EYES: None HEENT: None NECK: None RESPIRATORY: None CARDIOVASCULAR: None GASTROINTESTINAL: None GENITOURINARY: None MUSCULOSKELETAL: Pain in many joints LYMPHATICS: None HEMATOLOGICAL: None PSYCHIATRY: None NEUROLOGICAL: None Social history: Does not smoke or drink alcohol. Does with family. Physical examination: VITAL SIGNS: 97.9, 78, 16, 101/59, 97% room air GENERAL: BMI 35.7, sitting up, tired. EYES: Pupils equal. Conjunctiva normal. HEENT: External appearance of nose and ears normal, oral cavity grossly normal. NECK: JVD not raised; masses not palpable. HEART: First and second heart sounds are normal; no edema. LUNGS: Respiratory rate normal; clear to auscultation. ABDOMEN: Soft, nontender, liver spleen not palpable, no masses palpable. PSYCH: Alert and oriented x3; mood and affect normal. NEUROLOGICAL: Cranial nerves grossly intact; no facial asymmetry, power and sensation grossly intact. LYMPHATICS: No lymph nodes palpable in the axilla and neck MUSCULOSKELETAL: Dressing over the right knee Investigations, reviewed in the clinical context Accu-Cheks 81 and 82 Blood work from 02/20/2019 to include white count 3.5 hemoglobin 12.4 potassium 4 creatinine 0.86 Assessment: -Right total knee arthroplasty -Obesity BMI 35.7 -Primary osteoarthritis of multiple joints -Essential hypertension -ADD and anxiety not otherwise specified - Plan: Care was discussed with the patient. Question were answered. Pain control per Dr. Epps. Home medications are to be renewed. Patient is on aspirin 325 mg twice a day per Dr. Epps. Thank you Dr. Epps Past Medical History Past Medical History: CVA/TIA, Hypertension, Osteoarthritis (OA) Additional Past Medical History / Comment(s): TIA APPROX 5 YRS AGO-no residula effects, hx. FREQUENT UTI'S, HYPOGLYCEMIA, frequent back pain, joint pain, iron deficiency anemia History of Any Multi-Drug Resistant Organisms: None Reported Past Surgical History: Back Surgery, Bariatric Surgery, Bowel Resection, Hysterectomy Additional Past Surgical History / Comment(s): GASTRIC BYPASS 2001, PAIN CLINIC PROCEDURES Past Anesthesia/Blood Transfusion Reactions: No Reported Reaction Additional Past Anesthesia/Blood Transfusion Reaction / Comm: woke up during a pain procedure Smoking Status: Never smoker - Past Family History Mother Family Medical History: Cancer, Deep Vein Thrombosis (DVT) Additional Family Medical History / Comment(s): COLON CANCER Medications and Allergies Home Medications Medication Instructions Recorded Confirmed Type Dextroamphetamine/Amphetamine 25 mg PO QAM 02/12/17 03/01/19 History [Adderall Xr] Escitalopram [Lexapro] 30 mg PO DAILY 02/12/17 03/01/19 History Ferrous Sulfate [Feosol] 325 mg PO DAILY 02/12/17 03/01/19 History Multivitamins, Thera [Multivitamin 1 tab PO DAILY 02/12/17 03/01/19 History (formulary)] Acetaminophen [Tylenol] 325 mg PO Q4H PRN 02/28/19 03/01/19 History Calcium Carbonate [Calcium] 600 mg PO DAILY 02/28/19 03/01/19 History Cholecalciferol [Vitamin D3 (25 1,000 unit PO DAILY 02/28/19 03/01/19 History Mcg = 1000 Iu)] Losartan [Cozaar] 25 mg PO DAILY 02/28/19 03/01/19 History Allergies Allergy/AdvReac Type Severity Reaction Status Date / Time No Known Allergies Allergy Verified 03/01/19 14:06 Physical Exam Vitals: Vital Signs Temp Pulse Pulse Pulse Resp BP BP 03/01/19 20:40 73 115/58 03/01/19 20:25 62 95/63 03/01/19 20:10 62 102/64 03/01/19 19:55 59 L 126/82 03/01/19 19:40 79 135/82 03/01/19 19:25 69 134/83 03/01/19 19:10 77 142/78 03/01/19 18:55 81 123/72 03/01/19 18:40 66 123/79 03/01/19 18:25 70 104/68 03/01/19 18:05 72 16 92/54 03/01/19 17:50 79 16 91/51 03/01/19 17:35 76 16 92/50 03/01/19 17:13 97.9 F 78 16 101/59 03/01/19 13:56 98.4 F 76 16 131/82 Pulse Ox 03/01/19 20:40 96 03/01/19 20:25 95 03/01/19 20:10 91 L 03/01/19 19:55 95 03/01/19 19:40 03/01/19 19:25 98 03/01/19 19:10 95 03/01/19 18:55 95 03/01/19 18:40 99 03/01/19 18:25 95 03/01/19 18:05 93 L 03/01/19 17:50 98 03/01/19 17:35 95 03/01/19 17:13 97 03/01/19 13:56 95 Intake and Output 03/01/19 03/01/19 03/01/19 06:59 14:59 22:59 Intake Total 1751 Output Total 100 Balance 1651 Intake: IV 1751 Output: Estimated Blood Loss 100
[2019-03-01] MEDS: SENNOSIDES-DOCUSATE SODIUM 1 EACH TAB PO SCH (21:55)
[2019-03-01] MEDS: ASPIRIN 325 MG TAB PO SCH (21:55)
[2019-03-01] MEDS: diphenhydrAMINE 50 MG/ML 1 ML VIAL IVP PRN (21:58)
[2019-03-01] MEDS: MORPHINE SULFATE 4 MG/ML SYRINGE IVP PRN (23:06)
[2019-03-01 23:34] VITALS: BMI 35.8
[2019-03-01] MEDS: ceFAZolin IN SWFI 2 GM/20 ML SYRINGE IVP SCH (23:46)
[2019-03-02] MEDS: MORPHINE SULFATE 4 MG/ML SYRINGE IVP PRN ×2 (03:28→07:22)
[2019-03-02] MEDS: diphenhydrAMINE 50 MG/ML 1 ML VIAL IVP PRN (04:31)
[2019-03-02] MEDS: ceFAZolin IN SWFI 2 GM/20 ML SYRINGE IVP SCH (07:23)
[2019-03-02 08:20] LABS: Basophils % (A) 0 %; Eosinophils % (A) 0 %; HCT 32.8 % (34.0-46.0); HGB 10.4 gm/dL (11.4-16.0); Hypochromasia Slight; Lymphocytes % (A) 14 %; MCH 29.5 pg (25.0-35.0); MCHC 31.8 g/dL (31.0-37.0); MCV 92.6 fL (80.0-100.0); Mean Platelet Volume 8.6; Monocytes # (A) 0.4 k/uL (0-1.0); Monocytes % (A) 6 %; Neutrophils # (A) 5.5 k/uL (1.3-7.7); Neutrophils % (A) 78 %; Platelet Count 137 k/uL (150-450); RBC 3.54 m/uL (3.80-5.40); WBC 7.1 k/uL (3.8-10.6)
--- NOTE | 2019-03-02 08:32 | P.PN ---
Progress Note - Text Progress Note Date: 03/02/19 Pt w/o complaints. Some pruritis - treated. Moderate pain. Denies headache or weakness. Spinal site clean and dry A/P POD#1 s/p TKA w/ spinal duramorph - doing well
[2019-03-02] MEDS ORDERED: FERROUS SULFATE 325 MG TAB PO SCH (09:00)
[2019-03-02] MEDS: HYDROmorphone 1 MG/ML 1 ML SYRINGE IVP PRN ×4 (10:06→21:36)
[2019-03-02] MEDS: traMADol 50 MG TAB PO SCH ×4 (10:09→21:34)
[2019-03-02] MEDS: CALCIUM CARBONATE 500 MG CHEWABLE PO SCH (10:10)
[2019-03-02] MEDS: ASPIRIN 325 MG TAB PO SCH ×2 (10:10→21:34)
[2019-03-02] MEDS: LOSARTAN 25 MG TAB PO SCH (10:10)
[2019-03-02] MEDS: ESCITALOPRAM 10 MG TAB PO SCH (10:12)
[2019-03-02] MEDS: Dextroamphetamine/Amphetamine [Adderall Xr] PO SCH (10:13)
--- NOTE | 2019-03-02 11:08 | P.PN ---
Subjective Progress Note Date: 03/02/19 Principal diagnosis: Right TKA Patient is seen at bedside this morning. She is postop day #1 from right total knee arthroplasty.. She has pain at the surgical site as expected but denies any new complaints. She denies numbness, tingling or calf pain. Review of systems is negative for fever, chills, chest pain, shortness of breath or other Objective - Vital Signs Vital signs: Vital Signs Temp 97.7 F 03/02/19 07:00 Pulse 59 L 03/02/19 07:00 Resp 16 03/02/19 07:00 BP 101/66 03/02/19 07:00 Pulse Ox 96 03/02/19 07:00 Intake & Output 03/01/19 03/02/19 03/02/19 18:59 06:59 18:59 Intake Total 1751 Output Total 100 300 Balance 1651 -300 Intake: IV 1751 Output: Urine 300 Estimated Blood Loss 100 Other: # Voids 1 - Exam Inspection reveals a benign surgical wound. There is no active bleeding or drainage. Neurovascular status is intact throughout the lower extremity with motor and sensation fully intact. Calf is soft and nontender. 2+ dorsalis pedis pulse and less than 2 second cap refill is present. - Constitutional General appearance: Present: no acute distress - Labs CBC & Chem 7: 03/02/19 07:09 Labs: Abnormal Lab Results - Last 24 Hours (Table) 03/02/19 Range/Units 07:09 RBC 3.54 L (3.80-5.40) m/uL Hgb 10.4 L (11.4-16.0) gm/dL Hct 32.8 L (34.0-46.0) % Plt Count 137 L (150-450) k/uL Assessment and Plan (1) Right knee DJD Narrative/Plan: She will continue with routine postop orthopedic protocol including pain management, wound care, PT, DVT prophylaxis and medical management. Expect that she will transfer to home tomorrow Current Visit: Yes Status: Acute Code(s): M17.11 - UNILATERAL PRIMARY OSTEOARTHRITIS, RIGHT KNEE SNOMED Code(s): 263664959677142 Time with Patient: Less than 30
[2019-03-02] MEDS: HYDROcodone/APAP 10-325MG 1 EACH TAB PO PRN (13:35)
[2019-03-02] MEDS: MULTIVITAMINS, THERA 1 EACH TAB PO SCH (18:04)
--- NOTE | 2019-03-02 20:47 | P.PN ---
Progress Note - Text Progress Note Date: 03/02/19 - Chief Complaint Right knee surgery Interval history: This is a very pleasant 53-year-old patient of Dr. Aaron Garcia. Patient has undergone right total knee arthroplasty by Dr. Epps. Postprocedure some pain is present. Her nausea vomiting. No chest pain or shortness of breath. Family present at the bedside. Tonic stable medical conditions include hypertension, osteoarthritis in other joints, ADD and anxiety, episodes of hypoglycemia. Today-stable. Some pain in the right knee. Did work with therapy. Had some breakfast. No nausea vomiting. Resting the chair. Review of systems: Was done for constitutional, cardiovascular, GI, pulmonary. Musculoskeletal relevant finding as above Current medications are reviewed that include: Aspirin for DVT prophylaxis Physical examination: VITAL SIGNS: 97.7, 59, 16, 101/66, 96% room air GENERAL: Propped up, comfortable EYES: Pupils equal. Conjunctiva normal. HEENT: External appearance of nose and ears normal, oral cavity grossly normal. NECK: JVD not raised; masses not palpable. HEART: First and second heart sounds are normal; no edema. LUNGS: Respiratory rate normal; clear to auscultation. ABDOMEN: Soft, nontender, liver spleen not palpable, no masses palpable. PSYCH: Alert and oriented x3; mood and affect normal. MUSCULOSKELETAL: Dressing over the right knee Investigations, reviewed in the clinical context Hemoglobin 10.4 Assessment: -Right total knee arthroplasty -Obesity BMI 35.7 -Primary osteoarthritis of multiple joints -Essential hypertension -ADD and anxiety not otherwise specified -Acute postop blood loss anemia as expected from surgery - Plan: Care was discussed with the patient. Add iron supplementation. Continue other medications. Thank you Dr. Epps
[2019-03-02] MEDS: SENNOSIDES-DOCUSATE SODIUM 1 EACH TAB PO SCH (21:34)
[2019-03-03] MEDS: HYDROmorphone 1 MG/ML 1 ML SYRINGE IVP PRN ×2 (00:48→04:53)
[2019-03-03] MEDS: LACTATED RINGERS 1,000 ML IV SCH (00:52)
[2019-03-03] MEDS: HYDROcodone/APAP 10-325MG 1 EACH TAB PO PRN ×3 (03:44→15:44)
[2019-03-03] MEDS: Dextroamphetamine/Amphetamine [Adderall Xr] PO SCH (07:42)
[2019-03-03] MEDS: CALCIUM CARBONATE 500 MG CHEWABLE PO SCH (07:50)
[2019-03-03] MEDS: ESCITALOPRAM 10 MG TAB PO SCH (07:50)
[2019-03-03] MEDS: LOSARTAN 25 MG TAB PO SCH (07:50)
[2019-03-03] MEDS: MULTIVITAMINS, THERA 1 EACH TAB PO SCH (07:50)
[2019-03-03] MEDS: FERROUS SULFATE 325 MG TAB PO SCH ×2 (07:50→17:25)
[2019-03-03] MEDS: traMADol 50 MG TAB PO SCH ×3 (07:50→17:25)
[2019-03-03] MEDS: ASPIRIN 325 MG TAB PO SCH ×2 (07:50→20:12)
[2019-03-03] MEDS: oxyCODONE ER 10 MG TAB.ER.12H PO SCH ×2 (11:22→20:12)
--- NOTE | 2019-03-03 16:00 | P.PN ---
Subjective Progress Note Date: 03/03/19 Principal diagnosis: Right TKA Patient is seen at bedside this morning. She is postop day #2 from right total knee arthroplasty.. She has pain at the surgical site as expected but denies any new complaints. She denies numbness, tingling or calf pain. Review of systems is negative for fever, chills, chest pain, shortness of breath or other Objective - Vital Signs Vital signs: Vital Signs Temp 97.8 F 03/03/19 14:23 Pulse 72 03/03/19 14:23 Resp 15 03/03/19 14:23 BP 128/69 03/03/19 14:23 Pulse Ox 98 03/03/19 14:23 Intake & Output 03/02/19 03/03/19 03/03/19 18:59 06:59 18:59 Intake Total 678 430 240 Output Total 600 Balance 78 430 240 Intake: Intake, IV Titration 160 280 Amount Lactated Ringers 1,000 ml 160 280 @ 20 mls/hr IV .Q24H FELIX Rx#:[id number] Oral 518 150 240 Output: Urine 600 Other: Voiding Method Toilet # Voids 2 1 3 - Exam Inspection reveals a benign surgical wound. There is no active bleeding or drainage. Neurovascular status is intact throughout the lower extremity with motor and sensation fully intact. Calf is soft and nontender. 2+ dorsalis pedis pulse and less than 2 second cap refill is present. - Constitutional General appearance: Present: no acute distress - Labs CBC & Chem 7: 03/02/19 07:09 Assessment and Plan (1) Right knee DJD Narrative/Plan: She will continue with routine postop orthopedic protocol including pain management, wound care, PT, DVT prophylaxis and medical management. Expect that she will transfer to home tomorrow Current Visit: Yes Status: Acute Code(s): M17.11 - UNILATERAL PRIMARY OSTEOARTHRITIS, RIGHT KNEE SNOMED Code(s): 420999442805849 Time with Patient: Less than 30
[2019-03-03] MEDS: SENNOSIDES-DOCUSATE SODIUM 1 EACH TAB PO SCH (20:12)
--- NOTE | 2019-03-03 23:35 | P.PN ---
Progress Note - Text Progress Note Date: 03/03/19 - Chief Complaint Right knee surgery Interval history: This is a very pleasant 53-year-old patient of Dr. Aaron Garcia. Patient has undergone right total knee arthroplasty by Dr. Epps. Postprocedure some pain is present. Her nausea vomiting. No chest pain or shortness of breath. Family present at the bedside. Tonic stable medical conditions include hypertension, osteoarthritis in other joints, ADD and anxiety, episodes of hypoglycemia. Today-doing better. Did work with therapy. No new issues. Did tolerate her meals. Feeling better. Review of systems: Was done for constitutional, cardiovascular, GI, pulmonary. Musculoskeletal relevant finding as above Current medications are reviewed that include: Aspirin for DVT prophylaxis Physical examination: VITAL SIGNS: 97.8, 72, 15, 1 28 x 6 9, 98% room air GENERAL: Sitting up, comfortable EYES: Pupils equal. Conjunctiva normal. HEENT: External appearance of nose and ears normal, oral cavity grossly normal. NECK: JVD not raised; masses not palpable. HEART: First and second heart sounds are normal; no edema. LUNGS: Respiratory rate normal; clear to auscultation. ABDOMEN: Soft, nontender, liver spleen not palpable, no masses palpable. PSYCH: Alert and oriented x3; mood and affect normal. MUSCULOSKELETAL: Dressing over the right knee Investigations, reviewed in the clinical context Hemoglobin 10.4 Assessment: -Right total knee arthroplasty -Obesity BMI 35.7 -Primary osteoarthritis of multiple joints -Essential hypertension -ADD and anxiety not otherwise specified -Acute postop blood loss anemia as expected from surgery - Plan: Stable. Continue current medication treatment plan. Care discussed was discussed. Thank you Dr. Epps
[2019-03-04] MEDS: traMADol 50 MG TAB PO SCH ×3 (00:05→12:00)
[2019-03-04] MEDS: LACTATED RINGERS 1,000 ML IV SCH (00:38)
[2019-03-04] MEDS: HYDROcodone/APAP 10-325MG 1 EACH TAB PO PRN ×2 (04:45→12:23)
[2019-03-04 06:36] LABS: Basophils % (A) 0 %; Eosinophils # (A) 0.2 k/uL (0-0.7); Eosinophils % (A) 3 %; HCT 30.7 % (34.0-46.0); Lymphocytes # (A) 0.6 k/uL (1.0-4.8); Lymphocytes % (A) 13 %; MCH 30.1 pg (25.0-35.0); MCHC 32.6 g/dL (31.0-37.0); MCV 92.2 fL (80.0-100.0); Mean Platelet Volume 8.2; Monocytes # (A) 0.3 k/uL (0-1.0); Monocytes % (A) 7 %; Neutrophils # (A) 3.5 k/uL (1.3-7.7); Neutrophils % (A) 75 %; Platelet Count 117 k/uL (150-450); RBC 3.33 m/uL (3.80-5.40); RDW 13.5 % (11.5-15.5); WBC 4.7 k/uL (3.8-10.6)
[2019-03-04 08:45] VITALS: BP 122/73; PULSE 78; RESP 12; TEMP 98.2
[2019-03-04] MEDS: Dextroamphetamine/Amphetamine [Adderall Xr] PO SCH (09:04)
[2019-03-04] MEDS: MULTIVITAMINS, THERA 1 EACH TAB PO SCH (09:17)
[2019-03-04] MEDS: FERROUS SULFATE 325 MG TAB PO SCH (09:17)
[2019-03-04] MEDS: oxyCODONE ER 10 MG TAB.ER.12H PO SCH (09:17)
[2019-03-04] MEDS: ASPIRIN 325 MG TAB PO SCH (09:17)
[2019-03-04] MEDS: CALCIUM CARBONATE 500 MG CHEWABLE PO SCH (09:17)
[2019-03-04] MEDS: ESCITALOPRAM 10 MG TAB PO SCH (09:18)
[2019-03-04] MEDS: LOSARTAN 25 MG TAB PO SCH (09:18)
--- NOTE | 2019-03-04 09:46 | P.DS ---
Providers Date of admission: 03/02/19 06:11 Expected date of discharge: 03/04/19 Attending physician: Juan Epps Consults: 03/01/19 17:38 Consult Physician Routine Consulting Provider: Jeremiah Lynn Consult Reason/Comments: post op medical management Do you want consulting provider notified?: Yes Primary care physician: Aaron Garcia - Discharge Diagnosis(es) (1) Status post total right knee replacement Current Visit: Yes Status: Acute (2) History of hypertension Current Visit: Yes Status: Acute (3) Right knee DJD Current Visit: Yes Status: Acute Hospital Course: This is a pleasant 53-year-old female who presented with right knee osteoarthritis who failed outpatient conservative therapy. She was admitted for a right total knee arthroplasty performed by Dr. Juan Epps on 03/01/2019. She continues to have some pain in the right knee but states her pain is better controlled and was prior to surgical intervention. She is currently very happy with her progress postoperatively. She has been using a walker to aid in ambulation. She has a walker at home. She's been weightbearing as tolerated on the right lower extremity. She feels she is ready for discharge home. The patient tolerated the procedure well and did well postoperatively. Condition on day of discharge stable. Patient will be discharged home. Patient was cleared preoperatively for surgery by Dr. Garcia. Patient currently denies any nausea, vomiting, fever, or chills. Patient is eating and voiding freely without difficulty. Patient may shower without a dressing over the right knee if incision site remains dry over the next 3 days. She is encouraged to elevate the right lower extremity and apply ice over the right knee for comfort support as needed. She should keep her incision site clean and dry. [facility] has been set up. She is encouraged to medications as prescribed. Prescriptions have been written by Jeromy Rodgers PA-C. [facility]S has been reviewed. Opioid form has been signed by the patient and Jeromy Rodgers PA-C. Prescriptions have been written for aspirin 325 mg, Colace 100 mg, [place] 10 mg/325 mg, and oxycodone ER. Patient should take these medications as prescribed. Patient has a which includes hypertension. Physical Exam Total Knee Arthroplasty: Status post surgical day number 3 Patient is awake, alert, and oriented 3 Vital signs stable Good chest excursion with deep inspiration and expiration Abdomen soft nontender No signs or symptoms of DVT; no calf pain Dressing over the right knee is clean, dry, and intact; no erythema, purulence, or signs of infection Patient has full foot and ankle motion without difficulty bilateral lower extremities Dorsiflexion, plantar flexion, and extensor hallucis longus positive sustained bilaterally Neurovascular status left lower extremity intact Capillary refill lower extremity is bilaterally less than 2 seconds Procedures: Right total knee arthroplasty Patient Condition at Discharge: Stable Plan - Discharge Summary Discharge Rx Participant: Yes New Discharge Prescriptions: New Aspirin 325 mg PO BID #60 tab Docusate [Colace] 100 mg PO BID #60 capsule HYDROcodone/APAP 10-325MG [[place] 10-325] 1 tab PO Q4HR PRN #42 tab PRN Reason: Pain oxyCODONE ER [OxyCONTIN] 10 mg PO Q12HR 3 Days #14 tab No Action Multivitamins, Thera [Multivitamin (formulary)] 1 tab PO DAILY Ferrous Sulfate [Feosol] 325 mg PO DAILY Escitalopram [Lexapro] 30 mg PO DAILY Dextroamphetamine/Amphetamine [Adderall Xr] 25 mg PO QAM Losartan [Cozaar] 25 mg PO DAILY Acetaminophen [Tylenol] 325 mg PO Q4H PRN PRN Reason: Pain Cholecalciferol [Vitamin D3 (25 Mcg = 1000 Iu)] 1,000 unit PO DAILY Calcium Carbonate [Calcium] 600 mg PO DAILY Discharge Medication List Dextroamphetamine/Amphetamine [Adderall Xr] 25 mg PO QAM 02/12/17 [History] Escitalopram [Lexapro] 30 mg PO DAILY 02/12/17 [History] Ferrous Sulfate [Feosol] 325 mg PO DAILY 02/12/17 [History] Multivitamins, Thera [Multivitamin (formulary)] 1 tab PO DAILY 02/12/17 [History] Acetaminophen [Tylenol] 325 mg PO Q4H PRN 02/28/19 [History] Calcium Carbonate [Calcium] 600 mg PO DAILY 02/28/19 [History] Cholecalciferol [Vitamin D3 (25 Mcg = 1000 Iu)] 1,000 unit PO DAILY 02/28/19 [History] Losartan [Cozaar] 25 mg PO DAILY 02/28/19 [History] Aspirin 325 mg PO BID #60 tab 03/03/19 [Rx] Docusate [Colace] 100 mg PO BID #60 capsule 03/03/19 [Rx] HYDROcodone/APAP 10-325MG [[place] 10-325] 1 tab PO Q4HR PRN #42 tab 03/03/19 [Rx] oxyCODONE ER [OxyCONTIN] 10 mg PO Q12HR 3 Days #14 tab 03/03/19 [Rx] Follow up Appointment(s)/Referral(s): [facility], [NON-STAFF] - Juan Epps MD [STAFF PHYSICIAN] - 10 Days Activity/Diet/Wound Care/Special Instructions: [facility] - [phone] - to be delivered to room Saturday 03/03 prior to discharge Keep wound clean and dry Take meds as directed Follow-up with Dr. Epps in office Weight bear as tolerated May shower in 3 days if no bleeding Discharge Disposition: HOME WITH HOME HEALTH SERVICES
== END 2019-03-04 12:53 | disposition home health service (06) ==
LOC: OR 13:18 → 4SSUR 18:01 → OR 03-02 06:10 → 4SSUR 03-02 06:11
PROVIDERS: ADMIT Orthopaedic Surgery Sports Medicine; ATTEND Orthopaedic Surgery Sports Medicine
DX: M17.11 Unilateral primary osteoarthritis, right knee (principal); M17.12 Unilateral primary osteoarthritis, left knee; M54.2 Cervicalgia; F41.9 Anxiety disorder, unspecified; I10 Essential (primary) hypertension; D62 Acute posthemorrhagic anemia; E66.9 Obesity, unspecified; Z68.35 Body mass index [BMI] 35.0-35.9, adult; L29.9 Pruritus, unspecified; Z86.39 Personal history of other endocrine, nutritional and metabolic disease; F98.8 Other specified behavioral and emotional disorders with onset usually occurring in childhood and adolescence; Z79.899 Other long term (current) drug therapy; Z87.440 Personal history of urinary (tract) infections
CPT/HCPCS: 27447; 97116; 97110; 97161; 85025 ×2; 88300; 73560; G0378 ×3; C1776; C1713; J2250 ×2; J0171; J2270 ×2; J1200 ×2; J1100; J2405 ×2; J0690 ×3; J2274; J3010; J1885; J1170 ×2; J2795; J2370; J2704; J0735

== ENCOUNTER → 2019-03-08 | Outpatient (CLI) | payer BC ==
--- NOTE | 2019-03-08 14:06 | US ---
EXAMINATION TYPE: US venous doppler duplex LE RT DATE OF EXAM: 03/08/2019 1:39 PM COMPARISON: NONE CLINICAL HISTORY: I80.9 Phlebitis and Thrombophlebitis. Swelling and bruising. Hx of total knee repl acement x 1 week ago. On aspirin. SIDE PERFORMED: Right TECHNIQUE: The lower extremity deep venous system is examined utilizing real time linear array sonog summer with graded compression, doppler sonography and color-flow sonography. VESSELS IMAGED: External Iliac Vein (EIV) Common Femoral Vein Deep Femoral Vein Greater Saphenous Vein * Femoral Vein Popliteal Vein Small Saphenous Vein * Proximal Calf Veins (* superficial vessels) Right Leg: Negative for DVT IMPRESSION: 1. Left lower extremity ultrasound negative for deep venous thrombosis.
== END | disposition home or self-care (01) ==
LOC: RADUSWWP 12:54
PROVIDERS: ATTEND Orthopaedic Surgery Sports Medicine
DX: M17.11 Unilateral primary osteoarthritis, right knee (principal); Z96.651 Presence of right artificial knee joint; I80.9 Phlebitis and thrombophlebitis of unspecified site

== ENCOUNTER 2019-03-11 20:08 | Emergency (ER) | payer BC ==
[2019-03-11 20:42] VITALS: TEMP 98
[2019-03-11] MEDS ORDERED: KETOROLAC 30 MG/ML 1 ML VIAL IVP STA (20:57)
[2019-03-11] MEDS ORDERED: HYDROmorphone 1 MG/ML 1 ML SYRINGE IVP STA (20:57)
[2019-03-11 22:01] LABS: Basophils % (A) 1 %; Eosinophils # (A) 0.2 k/uL (0-0.7); Eosinophils % (A) 4 %; HCT 36.3 % (34.0-46.0); HGB 12.1 gm/dL (11.4-16.0); Hypochromasia Slight; Lymphocytes # (A) 1.4 k/uL (1.0-4.8); Lymphocytes % (A) 31 %; MCH 30.1 pg (25.0-35.0); MCHC 33.3 g/dL (31.0-37.0); MCV 90.5 fL (80.0-100.0); Mean Platelet Volume 8.1; Monocytes # (A) 0.3 k/uL (0-1.0); Monocytes % (A) 7 %; Neutrophils # (A) 2.6 k/uL (1.3-7.7); Neutrophils % (A) 56 %; RBC 4.02 m/uL (3.80-5.40); RDW 14.4 % (11.5-15.5); WBC 4.6 k/uL (3.8-10.6)
[2019-03-11 22:10] LABS: ALT 21 U/L (9-52); AST 35 U/L (14-36); African American GFR (CKD) >90 (>60 ml/min/1.73 sqM); Albumin 4.1 g/dL (3.5-5.0); Alkaline Phosphatase 80 U/L (38-126); Anion Gap 8 mmol/L; Blood Urea Nitrogen 15 mg/dL (7-17); Calcium 9.3 mg/dL (8.4-10.2); Carbon Dioxide 28 mmol/L (22-30); Chloride 102 mmol/L (98-107); Glucose 95 mg/dL (74-99); Sodium 138 mmol/L (137-145); Total Bilirubin 0.5 mg/dL (0.2-1.3)
[2019-03-11 22:11] LABS: Platelet Count 254 k/uL (150-450)
--- NOTE | 2019-03-11 22:30 | XR ---
EXAM: XR Right Knee, 3 views CLINICAL HISTORY: ITS.REASON XR Reason: Pain TECHNIQUE: Three views of the right knee. COMPARISON: 03/01/19 FINDINGS: Bones/joints: Status post right knee arthroplasty without signs of hardware complication. No acute fracture. No dislocation. Soft tissues: Unremarkable. IMPRESSION: No acute findings.
[2019-03-11] MEDS ORDERED: IBUPROFEN 600 MG STARTER PACK 4 TAB BTL PO STA (22:54)
--- NOTE | 2019-03-11 22:54 | ED ---
Lower Extremity Injury HPI - General Chief Complaint: Extremity Injury, Lower Stated Complaint: Knee pain Time Seen by Provider: 03/11/19 20:51 Source: patient, family Mode of arrival: ambulatory Limitations: no limitations - History of Present Illness Initial Comments: 53-year-old female patient who is status post right total knee arthroplasty on 03/02/2019 presents to the emergency department today for evaluation of severe right knee pain. Patient states she is having severe pain to the posterior knee into the anterior knee. Patient states that the leg is swollen. Patient states she has been in to see her research support specialist, she did have ultrasound on Wednesday ruling out DVT. Patient states she is taking Kaplan 10/325 every 4 hours. States that she was taking oxycodone but those pills ran out yesterday morning. Patient states she has been resting, icing, elevating the leg. Has been using crutches to assist with ambulation. She denies any fever or chills. Denies any drainage from the incision. Patient denies any recent rash, s hortness breath, chest pain, abdominal pain, nausea, vomiting, diarrhea, constipation, back pain, numbness, tingling, dizziness, weakness, hematuria, dysuria, urinary urgency, urinary frequency, headache, visual changes, or any other complaints. - Related Data Home Medications Medication Instructions Recorded Confirmed Dextroamphetamine/Amphetamine 25 mg PO QAM 02/12/17 03/02/19 [Adderall Xr] Escitalopram [Lexapro] 30 mg PO DAILY 02/12/17 03/02/19 Ferrous Sulfate [Feosol] 325 mg PO DAILY 02/12/17 03/02/19 Multivitamins, Thera [Multivitamin 1 tab PO DAILY 02/12/17 03/02/19 (formulary)] Acetaminophen [Tylenol] 325 mg PO Q4H PRN 02/28/19 03/02/19 Calcium Carbonate [Calcium] 600 mg PO DAILY 02/28/19 03/02/19 Cholecalciferol [Vitamin D3 (25 1,000 unit PO DAILY 02/28/19 03/02/19 Mcg = 1000 Iu)] Losartan [Cozaar] 25 mg PO DAILY 02/28/19 03/02/19 Previous Rx's Medication Instructions Recorded Aspirin 325 mg PO BID #60 tab 03/03/19 Docusate [Colace] 100 mg PO BID #60 capsule 03/03/19 HYDROcodone/APAP 10-325MG [Kaplan 1 tab PO Q4HR PRN #42 tab 03/03/19 10-325] oxyCODONE ER [OxyCONTIN] 10 mg PO Q12HR 3 Days #14 tab 03/03/19 Ibuprofen [Motrin] 600 mg PO Q8HR PRN #30 tab 03/11/19 Allergies Allergy/AdvReac Type Severity Reaction Status Date / Time No Known Allergies Allergy Verified 03/11/19 20:42 Review of Systems ROS Statement: Those systems with pertinent positive or pertinent negative responses have been documented in the HPI. ROS Other: All systems not noted in ROS Statement are negative. Past Medical History Past Medical History: CVA/TIA, Hypertension, Osteoarthritis (OA) Additional Past Medical History / Comment(s): RECTAL PROLAPSE, ? TIA APPROX 5 YRS AGO, FREQUENT UTI'S, HYPOGLYCEMIA-EATS FREQUENTLY,. IRON DEFICIENCY ANEMIA. History of Any Multi-Drug Resistant Organisms: None Reported Past Surgical History: Back Surgery, Bariatric Surgery, Hysterectomy, Orthopedic Surgery Additional Past Surgical History / Comment(s): GASTRIC BYPASS, PAIN CLINIC PROCEDURES Past Anesthesia/Blood Transfusion Reactions: Previous Problems w/ Anesthesia Additional Past Anesthesia/Blood Transfusion Reaction / Comment(s): WOKE UP DURING LAST PAIN CLINIC PROCEDURE Past Psychological History: ADD/ADHD, Anxiety Smoking Status: Never smoker Past Alcohol Use History: None Reported Past Drug Use History: None Reported - Past Family History Father Family Medical History: Congestive Heart Failure (CHF), Diabetes Mellitus Mother Family Medical History: Cancer, Deep Vein Thrombosis (DVT), Rheumatoid Arthritis (RA) Additional Family Medical History / Comment(s): COLON CANCER, LUPUS General Exam Limitations: no limitations General appearance: alert, in no apparent distress, other (Physical well- developed, well-nourished adult female patient in no acute distress. Vital signs upon presentation are temperature 98.2F, pulse 81, respirations 22, blood pressure 120/75, pulse ox 96% on room air.) Eye exam: Present: normal appearance, PERRL, EOMI. Absent: scleral icterus, conjunctival injection, periorbital swelling ENT exam: Present: normal exam, normal oropharynx, mucous membranes moist Respiratory exam: Present: normal lung sounds bilaterally. Absent: respiratory distress, wheezes, rales, rhonchi, stridor Cardiovascular Exam: Present: regular rate, normal rhythm, normal heart sounds. Absent: systolic murmur, diastolic murmur, rubs, gallop, clicks GI/Abdominal exam: Present: soft, normal bowel sounds. Absent: distended, tenderness, guarding, rebound, rigid Extremities exam: Present: full ROM, normal capillary refill, other (Incision to the right midline knee is intact with no inflammation or drainage. Well approximated. There is swelling surrounding the right knee. Skin is warm, pink, dry. Cap refills less than 3 seconds. Pedal and posttibial pulses 2+ and equal bilaterally.). Absent: normal inspection, tenderness, pedal edema, joint swelling, calf tenderness Neurological exam: Present: alert, oriented X3, CN II-XII intact Psychiatric exam: Present: normal affect, normal mood Skin exam: Present: warm, dry, intact, normal color. Absent: rash Course Vital Signs 03/11/19 20:38 Temperature 98 F Pulse Rate 81 Respiratory 22 Rate Blood Pressure 120/75 O2 Sat by Pulse 96 Oximetry Medical Decision Making - Medical Decision Making 53-year-old female patient present into the emergency department today for evaluation of increasing right knee pain. Physical examination did reveal right leg swelling. There is an intact midline incision that is well approximated with no signs of inflammation or drainage. Labs reviewed and were unremarkable, normal white blood cell count. X-ray was reviewed and showed no signs of hardware complication. We did administer IV pain medication, patient reports improvement of symptoms. She would like to attempt discharge to follow-up with her physician on Wednesday. She is instructed to take medications as directed. We'll add and ibuprofen for anti-inflammatory effect. Return parameters were discussed in detail patient verbalizes understanding and agrees with this plan. - Lab Data Result diagrams: 03/11/19 21:44 03/11/19 21:44 Lab Results 03/11/19 03/11/19 Range/Units 21:44 21:44 WBC 4.6 (3.8-10.6) k/uL RBC 4.02 (3.80-5.40) m/uL Hgb 12.1 (11.4-16.0) gm/dL Hct 36.3 (34.0-46.0) % MCV 90.5 (80.0-100.0) fL MCH 30.1 (25.0-35.0) pg MCHC 33.3 (31.0-37.0) g/dL RDW 14.4 (11.5-15.5) % Plt Count 254 D (150-450) k/uL Neutrophils % 56 % Lymphocytes % 31 % Monocytes % 7 % Eosinophils % 4 % Basophils % 1 % Neutrophils # 2.6 (1.3-7.7) k/uL Lymphocytes # 1.4 (1.0-4.8) k/uL Monocytes # 0.3 (0-1.0) k/uL Eosinophils # 0.2 (0-0.7) k/uL Basophils # 0.0 (0-0.2) k/uL Hypochromasia Slight Sodium 138 (137-145) mmol/L Potassium 4.0 (3.5-5.1) mmol/L Chloride 102 (98-107) mmol/L Carbon Dioxide 28 (22-30) mmol/L Anion Gap 8 mmol/L BUN 15 (7-17) mg/dL Creatinine 0.76 (0.52-1.04) mg/dL Est GFR (CKD-EPI)AfAm >90 (>60 ml/min/1.73 sqM) Est GFR (CKD-EPI)NonAf >90 (>60 ml/min/1.73 sqM) Glucose 95 (74-99) mg/dL Calcium 9.3 (8.4-10.2) mg/dL Total Bilirubin 0.5 (0.2-1.3) mg/dL AST 35 (14-36) U/L ALT 21 (9-52) U/L Alkaline Phosphatase 80 (38-126) U/L Total Protein 7.0 (6.3-8.2) g/dL Albumin 4.1 (3.5-5.0) g/dL - Radiology Data Radiology results: report reviewed, image reviewed 3 views of the right knee are obtained. Report reviewed in its entirety. Impression by Dr. Soto shows no acute findings including no signs of hardware complication. Disposition Clinical Impression: Postoperative pain of knee Disposition: HOME SELF-CARE Condition: Good Instructions (If sedation given, give patient instructions): Knee Pain (ED) Additional Instructions: Continue to rest, ice, elevate the knee. Take pain medication as directed. Add and ibuprofen. Follow-up with your research support specialist for recheck as soon as possible. Return to the emergency department immediately for any new, worsening, or concerning symptoms. Prescriptions: Ibuprofen [Motrin] 600 mg PO Q8HR PRN #30 tab PRN Reason: Pain Is patient prescribed a controlled substance at d/c from ED?: No Referrals: Aaron Garcia MD [Primary Care Provider] - 1-2 days Time of Disposition: 22:54
[2019-03-11 23:24] VITALS: BP 148/78; PULSE 82; RESP 16
== END 2019-03-11 23:23 | disposition home or self-care (01) ==
LOC: EC 20:08
DX: G89.18 Other acute postprocedural pain (principal); M25.561 Pain in right knee; M79.89 Other specified soft tissue disorders; I10 Essential (primary) hypertension; F90.9 Attention-deficit hyperactivity disorder, unspecified type; F41.9 Anxiety disorder, unspecified; M19.90 Unspecified osteoarthritis, unspecified site; Z79.899 Other long term (current) drug therapy; Z98.84 Bariatric surgery status; Z86.73 Personal history of transient ischemic attack (TIA), and cerebral infarction without residual deficits; Z96.651 Presence of right artificial knee joint
CPT/HCPCS: 36415; 80053; 85025; 73562; 99283; 96374; 96375; J1885; J1170

== ENCOUNTER → 2019-07-28 | Outpatient (CLI) | payer BC ==
[2019-07-28 17:14] LABS: Estradiol 40.2 pg/mL; Follicle Stimulating Hormone 55.5 mIU/mL
== END | disposition home or self-care (01) ==
LOC: LABWHC1 11:03
PROVIDERS: ATTEND Obstetrics & Gynecology
DX: N95.1 Menopausal and female climacteric states (principal); E34.50 Androgen insensitivity syndrome, unspecified; G47.00 Insomnia, unspecified; R53.83 Other fatigue; R61 Generalized hyperhidrosis; R37 Sexual dysfunction, unspecified
CPT/HCPCS: 36415; 82670; 83001; 84144; 84403

== ENCOUNTER → 2019-10-12 | Outpatient (CLI) | payer BC ==
[2019-10-12 08:37] LABS: Basophils % (A) 1 %; Eosinophils # (A) 0.1 k/uL (0-0.7); Eosinophils % (A) 2 %; HCT 41.1 % (34.0-46.0); HGB 13.1 gm/dL (11.4-16.0); Lymphocytes # (A) 0.9 k/uL (1.0-4.8); Lymphocytes % (A) 21 %; MCH 28.8 pg (25.0-35.0); MCHC 31.9 g/dL (31.0-37.0); MCV 90.2 fL (80.0-100.0); Mean Platelet Volume 8.7; Monocytes # (A) 0.2 k/uL (0-1.0); Monocytes % (A) 5 %; Neutrophils # (A) 3.2 k/uL (1.3-7.7); Neutrophils % (A) 70 %; Platelet Count 168 k/uL (150-450); RBC 4.56 m/uL (3.80-5.40); RDW 12.9 % (11.5-15.5); WBC 4.5 k/uL (3.8-10.6)
[2019-10-12 11:28] LABS: Erythrocyte Sedimentation Rate 25 mm/hr (0-20)
[2019-10-12 11:44] LABS: African American GFR (CKD) 84.6 (60.0-200.0); Albumin 4.4 g/dL (3.80-4.90); Anion Gap 8.8 mmol/L (4.00-12.00); BUN/Creat Ratio 13.33 Ratio (12.00-20.00); Carbon Dioxide 25.2 mmol/L (21.6-31.8); Chol/HDL Ratio 2.19; Globulin 2.2 g/dL (1.6-3.3); LDL Cholesterol,Calculated 94.2 mg/dL (0.0-131.0); Potassium 4.2 mmol/L (3.5-5.5); Total Bilirubin 0.3 mg/dL (0.3-1.2); Total Protein 6.6 g/dL (6.2-8.2); VLDL Calculation 13.8 mg/dL (5.00-40.00)
== END ==
LOC: LABWHC1 07:30
PROVIDERS: ATTEND Nurse Practitioner Family
DX: I10 Essential (primary) hypertension (principal); M25.541 Pain in joints of right hand; R53.83 Other fatigue; Z13.6 Encounter for screening for cardiovascular disorders; Z13.220 Encounter for screening for lipoid disorders
CPT/HCPCS: 36415; 80053; 80061; 84443; 85025; 85652; 86038; 86431

== ENCOUNTER → 2019-10-24 | Outpatient (CLI) | payer BC ==
--- NOTE | 2019-10-24 10:08 | XR ---
EXAMINATION TYPE: XR cervical spine comp DATE OF EXAM: 10/24/2019 COMPARISON: NONE HISTORY: pain TECHNIQUE: Four views are submitted. FINDINGS: The odontoid is intact. There are no compression deformities. The prevertebral soft tissue structur es are within normal limits. Multilevel moderate to severe degenerative disc disease with posterior spondylosis and multilevel facet arthropathy. Multilevel neural foraminal encroachment. IMPRESSION: 1. Multilevel degenerative disc disease and facet arthropathy. Multilevel foraminal encroachment. Cor relate with MRI.
== END | disposition home or self-care (01) ==
LOC: RADXRMAIN 09:41
PROVIDERS: ATTEND Nurse Practitioner Family
DX: M50.30 Other cervical disc degeneration, unspecified cervical region (principal); M47.812 Spondylosis without myelopathy or radiculopathy, cervical region
CPT/HCPCS: 72050

== ENCOUNTER → 2020-01-11 | Outpatient (CLI) | payer BC ==
--- NOTE | 2020-01-11 15:36 | MR ---
EXAMINATION TYPE: MR cervical spine wo con DATE OF EXAM: 01/11/2020 COMPARISON: Cervical spine x-rays dated 10/24/2019 HISTORY: Severe neck pain, locking up when moving side to side. Chronic but getting worse. TECHNIQUE: Multiplanar, multisequence images of the cervical spine were acquired. FINDINGS: The cervical spine vertebral bodies maintain normal vertebral body heights. Very minimal gr irma 1 anterolisthesis of C3 on C4 of approximately 2 mm. Multilevel disc desiccation is seen. Spinal cord signal in the cervical spinous overall within normal limits. C2-C3: Mild uncovertebral hypertrophy creates mild bilateral neural foraminal narrowing bilaterally. No focal disc herniation or spinal canal stenosis. Disc desiccation is seen. C3-C4: Broad-based disc bulge, uncovertebral hypertrophy and facet arthropathy create moderate right and moderate to severe left neural foraminal narrowing. Ligamentum flavum buckling is also seen overa ll slightly narrowing the spinal canal. C4-C5: Uncovertebral hypertrophy and facet arthropathy are present as well as minimal ligamentum flav um buckling. Moderate left and moderate to severe right neural foraminal narrowing are seen. No signi ficant spinal canal stenosis. C5-C6: Right foraminal disc herniation is superimposed on a broad-based disc bulge creating moderate to severe right neural foraminal narrowing. There is narrowing of the ventral subarachnoid space. Lig amentum flavum buckling is also seen. Mild spinal canal stenosis overall. Left neural foramen is collins nt. C6-C7: Small right paracentral disc herniation is superimposed on a broad-based disc bulge. Uncoverte bral hypertrophy moderately narrows the right neural foramen. Mild left neural foraminal narrowing an d overall mild spinal canal stenosis. Ligamentum flavum buckling noted. C7-T1: There is ligamentum flavum buckling and disc desiccation without significant spinal canal sten osis nor neural foraminal narrowing. Questionable structure anterior to the left temporal lobe as seen on sagittal images, only partially visualized. MRI brain recommended for further evaluation. IMPRESSION: 1. Right foraminal disc herniation at C5-C6, small right paracentral disc herniation at C6-C7, and ov erall moderate degenerative disc disease of the cervical spine. Prevertebral degrees of both neural f oraminal narrowing and spinal canal stenosis is held above at each level. 2. Questionable structure only partially visualized anterior to the left temporal lobe on sagittal im ages. MRI of the brain is recommended for further evaluation. 3. Grade 1 anterolisthesis of C3 on C4, likely on a degenerative basis.
== END | disposition home or self-care (01) ==
LOC: RADMRIMAIN 14:43
PROVIDERS: ATTEND Nurse Practitioner Family
DX: M48.02 Spinal stenosis, cervical region (principal); M50.222 Other cervical disc displacement at C5-C6 level; M50.322 Other cervical disc degeneration at C5-C6 level
CPT/HCPCS: 72141

== ENCOUNTER → 2020-01-19 | Outpatient (CLI) | payer BC | END | disposition home or self-care (01) | LOC: LABWHC1 08:47 | PROVIDERS: ATTEND Nurse Practitioner Family | DX: M13.0 Polyarthritis, unspecified (principal) | CPT/HCPCS: 36415; 84550; 85652 ==

== ENCOUNTER → 2020-03-11 | Outpatient (CLI) | payer BC ==
--- NOTE | 2020-03-12 06:39 | MR ---
EXAMINATION TYPE: MR brain wo/w con DATE OF EXAM: 03/11/2020 COMPARISON: MRI cervical spine January 11, 2020 HISTORY: Recent abnormal study, MRI cervical spine. TECHNIQUE: Multiplanar, multisequence images of the brain and brainstem is performed without and with IV contras t, utilizing 11.5 mL intravenous Gadavist . FINDINGS: Diffusion weighted images demonstrate no evidence of a recent infarct or other diffusion ab normality. There is no worrisome extra-axial fluid collection. The ventricular system and cisternal spaces are normal in size and appearance. The brain volume is age appropriate. Scattered foci of T2 hyperintensity are seen throughout the white matter bilaterally. Approximately 30-40 scattered lesio ns most prominent at periventricular levels. Midline structures demonstrate normal morphology. The craniocervical junction appears within normal limits. Post contrast images demonstrate no abnormal enhancement. The dural venous sinuses appear pa tent. The visualized sinuses are clear and the globes are intact. Area of concern anterior to left temporal lobe shows no worrisome solid or cystic mass or fluid colle ction. Suspect structure on recent MRI is partial visualization of the inferior aspect left globe jus t above the left maxillary sinus. IMPRESSION: 1. No concerning solid or cystic mass anterior to the left temporal lobe. 2. Fairly moderate nonspecific white matter changes most likely on basis of product of chronic small vessel ischemic change in patient of this age.
== END ==
LOC: RADMRIMAIN 15:40
PROVIDERS: ATTEND Family Medicine
DX: R90.89 Other abnormal findings on diagnostic imaging of central nervous system (principal)
CPT/HCPCS: 70553; A9585

== ENCOUNTER 2020-03-14 05:35 | Observation (INO) | payer BC ==
[2020-03-13 10:28] VITALS: BMI 37.3
[~2020-03-14 05:35] MED LIST changes: -DEXAMETHASONE SOD PHOSPHATE 10 MG/ML 1 ML VIAL IV ONE; +GABAPENTIN 300 MG CAP PO ONE; -HYDROmorphone 0.5 MG/0.5 ML SYRINGE IVP PRN; -LIDOCAINE 1% 20 ML VIAL (10MG/ML) FOR IV START INTRADERMA PRN; -ROPIVACAINE 246.25 MG, EPINEPHrine 0.5 MG, KETOROLAC 30 MG, cloNIDine HCL/PF 80 MCG, WA... MISCELLANE ONE; -ceFAZolin IN SWFI 2 GM/20 ML SYRINGE IVP ONE; +fentaNYL (PF) 50 MCG/ML 2 ML AMP IV PRN
[2020-03-14 06:00] LABS: Glucose,Whole Blood 85 mg/dL (75-99)
[2020-03-14] MEDS ORDERED: ACETAMINOPHEN TAB 500 MG TAB ONE (06:09)
[2020-03-14] MEDS ORDERED: ONDANSETRON 4 MG/2 ML VIAL ONE (06:09)
[2020-03-14] MEDS ORDERED: DEXAMETHASONE SOD PHOSPHATE 10 MG/ML 1 ML VIAL IV ONE (06:18)
[2020-03-14] MEDS: LACTATED RINGERS 1,000 ML IV SCH ×4 (06:18→20:18)
[2020-03-14] MEDS ORDERED: MIDAZOLAM 2 MG/2 ML VIAL IV ONE ×2 (06:36→06:44)
[2020-03-14] MEDS ORDERED: MIDAZOLAM 2 MG/2 ML VIAL ONE (06:51)
[2020-03-14] MEDS ORDERED: ePHEDrine SULFATE/0.9% NACL/PF 50 MG/5 ML SYRINGE IV ONE (06:51)
[2020-03-14] MEDS ORDERED: PHENYLEPHRINE-0.9% NACL SYG 1 MG/10 ML SYRINGE ONE (06:51)
[2020-03-14] MEDS ORDERED: fentaNYL (PF) 50 MCG/ML 2 ML AMP ONE (06:51)
[2020-03-14] MEDS ORDERED: PROPOFOL 10 MG/ML 20 ML VIAL IV ONE (06:51)
[2020-03-14] MEDS ORDERED: ceFAZolin 3,000 MG in SODIUM CHLORIDE 0.9% IRRIGATIO 3,000 ML IRRIGATION ONE (06:57)
[2020-03-14] MEDS ORDERED: ROPIVACAINE 0.2%-NS ON-Q PUMP 1,090 MG, EMPTY PAIN BALL 1 EACH MISCELLANE PRN (07:11)
--- NOTE | 2020-03-14 07:11 | P.ANPRN ---
Procedure Note - Anesthesia - Nerve Block Performed Left Adductor Canal Infusion Location of Patient: PreOp Indication: Acute Post-Operative Pain, Requested by Surgeon Sedation Type: Sedate with meaningful contact maintained Preparation: Sterile Prep, Sterile Dressing Position: Supine Catheter: Indwelling Needle Types: Pajunk Needle Gauge: 21 Ultrasound used to visualize needle placement: Yes Ultrasound used to observe medication spread: Yes Blood Aspirated: No Pain Paresthesia on Injection Noted: No Resistance on Injection: Normal Image Stored and Saved: Yes Events: Uneventful and Well Tolerated (ropivacaine 0.5 % 25 mls)
[2020-03-14] MEDS: ROPIVACAINE 246.25 MG, EPINEPHrine 0.5 MG, KETOROLAC 30 MG, cloNIDine HCL/PF 80 MCG, WA... MISCELLANE ONE ×10 (07:28→07:58)
[2020-03-14] MEDS ORDERED: LACTATED RINGERS 1,000 ML IV ONE (07:57)
[2020-03-14] MEDS ORDERED: MAGNESIUM HYDROXIDE 2,400 MG/10 ML CUP PO PRN (08:56)
[2020-03-14] MEDS ORDERED: TEMAZEPAM 15 MG CAP PO PRN (08:56)
[2020-03-14] MEDS ORDERED: NALOXONE 0.4 MG/ML 1 ML VIAL IV PRN (08:56)
[2020-03-14] MEDS ORDERED: ACETAMINOPHEN TAB 325 MG TAB PO PRN (08:56)
[2020-03-14] MEDS ORDERED: NA PHOS,M-B/NA PHOS,DI-BA 133 ML ENEMA RECTAL PRN (08:56)
[2020-03-14] MEDS ORDERED: ONDANSETRON 4 MG/2 ML VIAL IVP PRN (08:56)
[2020-03-14] MEDS ORDERED: HYDROmorphone 0.5 MG/0.5 ML SYRINGE IVP PRN (08:56)
[2020-03-14] MEDS ORDERED: bisacodyL 10 MG SUPP RECTAL PRN (08:56)
[2020-03-14] MEDS ORDERED: HYDROcodone/APAP 7.5-325MG 1 EACH TAB PO PRN (09:00)
--- NOTE | 2020-03-14 10:27 | OP ---
OPERATIVE REPORT DATE OF PROCEDURE: 03/14/2020 SURGEON: Juan Epps MD. TELEGRAPH REPEATER TECHNICIAN: Jeromy GAYTAN PREOPERATIVE DIAGNOSIS: Left knee osteoarthrosis. POSTOPERATIVE DIAGNOSIS: Left knee osteoarthrosis. OPERATION: Left total knee arthroplasty. ANESTHESIA: Spinal sedation. ESTIMATED BLOOD LOSS: 100 mL. TOURNIQUET: 49 minutes at 250 mmHg. COMPLICATIONS: None apparent. DRAINS: None. DISPOSITION: Postanesthesia care unit. INDICATIONS: Matilde is a 54-year-old female with longstanding history of left knee pain. History and physical examination are consistent with advanced left knee osteoarthrosis. She has been through significant nonoperative management up to this point. Further treatment options were discussed and she decided to go for the left total knee arthroplasty. The risks of procedure were discussed with her in detail. These risks include, but are not limited to risk of infection, nerve damage, bleeding, pain, and a small risk of deep vein thrombosis which could lead to fatal pulmonary embolism. There is also risk of loosening of the implant which could require revision operation. The patient understands these risks. All of her questions were answered to her satisfaction. Appropriate informed consent was obtained. DESCRIPTION OF PROCEDURE: The patient identified in the preoperative holding area. Surgical site was marked by both the patient and myself. She was given 2 g of Ancef IV for prophylactic purposes. She was then transferred to the operative suite. She was placed supine on the operative table. Spinal anesthetic was then administered and dosed per the anesthesia without apparent complication. Examination under anesthesia was then performed. The patient was 2-3 degrees shy of full extension. She had a 95 degrees of flexion. The medial collateral ligament, lateral collateral ligament and posterior cruciate ligaments were stable. Tourniquet was then placed high on the left upper thigh well-padded in preparation for surgery. The patient's left lower extremity was then prepped and draped in the usual sterile fashion. Standard surgical pause undertaken to ensure that we were operating on the correct site and that appropriate preoperative antibiotics have been given. All staff in room were in agreement, we proceeded. The outlines of the patella marked with surgical pen. A planned 12 cm vertical incision centered over the patella was marked surgical pen. Leg was then exsanguinated with an Esmarch dressing. The knee was then flexed and tourniquet inflated to 250 mmHg. The total tourniquet time for the procedure was 49 minutes. Incision was then made with a 10 blade scalpel. The dissection was carried down sharply to overlying fascia. Great care was taken to minimize the skin flaps. The knee was then exposed using a standard medial parapatellar approach. A small cuff of quadriceps tendon was then left for suturing. She was in a bit of varus preoperatively. A standard medial release was then made. Superficial medial collateral ligament was dissected off the bone around the posterior aspect of the proximal tibia. The medial meniscus was then excised as well. The lateral meniscus was also released anteriorly. The leg was then externally rotated. The patella was everted. The knee was flexed, the retractor were then placed to protect the collateral ligaments. I then proceeded to remove the infrapatellar fat pad. This was excised sharply tangentially with fibers of the patellar tendon. I then proceeded to remove peripheral osteophytes. This is done with a rongeur. I then proceeded with the distal femoral resection. She did have near full extension. A planned 9 mm resection was then done. The femoral canal was then entered in the midline of the femur, approximately 10 mm anterior to the origin of the posterior cruciate ligament. The pa was advanced down the center of the femur and placed intramedullary. Based on the preoperative radiographs, the angle between the anatomic and mechanical axis of the femur was approximately 4-5 degrees. The valgus angle of this femoral cutting guide was then set at 4 degrees for the left knee. The distal femoral cutting guide was then advanced over the intramedullary pa, this was seated firmly against the femur. I then as mentioned planned to take 9 mm off the distal femur. The cutting block was then secured onto the femur with pins. The jig was removed. The distal femoral cut was made through the slot of the block. The pins were then removed. The distal femoral cutting block was removed. The accuracy of this femoral cuts was checked with 2 flat bars. I then proceeded with femoral sizing. Posterior referencing sizing guide was held firmly against the resected distal surface of the femur. The posterior condyles were resting on the posterior plane of the guide. The sizing stylus was then placed onto the anterior femur. The size was measured a size 8. I then assessed for femoral rotation. The plan is for 3 degrees of external rotation. Three degrees external rotation was placed onto the jig. These holes were then marked. I then confirmed the rotation by 3 separate methods. This was done using epicondylar axis as well as Whitesides line and posterior referencing. Deemed that the external rotation was proper. I then went forward placing the femoral cutting block. This was placed over the previously placed pin holes. The Edson wing was then placed onto the anterior slots to ensure that we would not notch the anterior femur with the anterior femoral cut. I then proceeded with the anterior femoral cut. This was flushed with the anterior cortex of the femur. The posterior cuts were then made followed by the anterior chamfer cut, then the posterior chamfer cut. The cutting block was then removed. Throughout the resection, the collateral ligaments were protected with retractors. I then placed a trial size 8 femur. It fit very nicely medial-lateral and fit flush with the distal end of the femur. The drill holes were then made. I then proceeded with the tibial cut. I planned for a cruciate-retaining knee. The guide was placed and set for varus valgus and for slope. Height set for approximate 2 mm resection from the medial tibial plateaus. Aside from the medial tibial plateau which was the lower side. I was happy with the alignment amount of resection. The cutting block was then pinned to the proximal tibia. The alignment pa was removed and the proximal tibia was resected with a reciprocating saw. Again this was done with retractors, protecting the collateral ligaments as well as the posterior cruciate ligament. I then proceeded to evaluate the flexion and extension gaps. A 10 mm block was then placed. The flexion-extension gaps were equal. I then proceed with resection of the posterior osteophytes. Very minimal posterior osteophytes. This is done using a curved osteotome. This resected the posterior osteophytes and posterior capsule stripping was done off the posterior aspect of the femur at this time. The osteophytes were then removed. I then proceed to resection of the patella. The thickness of patella was measured using the caliper. The thickness was 22 mm. The thickness of the anticipated patellar dome was taken into account. Resection was then performed and confirmed to be equal in 4 quadrants using a caliper. Approximately 14 mm of bone remained after resection. A 32 x 9 standard patellar trial was then placed. The holes were drilled. The trial was then placed. I then proceeded with sizing the tibial plate. A size E tibial plate fit very nicely. I then placed the trial femur, the tibial tray and the patellar button. A 10 mm trial insert was also placed. The components fit very nicely. She had full extension and flexion. The extension and flexion gaps were equal and stable to both varus and valgus stress. The patella tracked appropriately. Tibial tray rotation was marked with the Bovie. This was externally rotated properly. I then proceed with tibial preparation. I first drilled the femoral holes removed femoral component. Tibial tray was then set for proper external rotation as well as mediolateral placement onto the tibia. It was then pinned into place. I then proceeded with punching the keel. I then decided to proceed with cementing of all of our components. The knee was thoroughly irrigated with sterile saline solution via pulse lavage. The lateral geniculate artery was identified and cauterized. All blood was removed from the bone of the tibia, femur and patella with pulse lavage. I then proceeded with cementing. Two packs of antibiotic bone cement were prepared on the back table by the surgical instrument technician. I then proceeded with cementing the tibia first. The cement was impacted in the keel as well as deeply seated in the bone. A second coat of cement was then placed. The tibia was then impacted into place. Excess cement was removed with Cruger's and Joker's. I then proceeded with cementing of the femoral component. The femoral component was also cemented using standard technique. Excess cement was removed. A 10 mm trial insert was then placed into the knee. It was brought into full extension with a constant axial load placed until the cement had hardened. The patellar component was then cemented. This was held firmly with a compressive device until the cement had dried. When the cement had dried, the knee was taken out of extension. All excess cement was removed from around the prosthesis. I then trialed the knee with a 10 mm insert. Flexion and extension gaps were appropriate. I then trialed a 12 mm insert. Flexion and extension gaps felt much better. The knee was stable. It came into full extension. I decided to go for the 12 mm cross-linked cruciate-retaining tibial insert. Polyethylene was then placed onto the tibial tray and locked into place. The knee was then reduced. The knee was again further irrigated with sterile saline solution with antibiotic added. The tourniquet was then deflated. The total tourniquet time for the procedure was 49 minutes at 250 mmHg. Final components were Nicole Persona size 8, cruciate-retaining femoral component size E tibial tray, a 12 mm medial congruent cruciate-retaining polyethylene insert and a 32 x 9 patella. I then proceeded with closure. Again, the knee was thoroughly irrigated. The quadriceps tendon and the medial retinaculum were reapproximated with #2 Ethibond suture. The extensor mechanism was then closed with a running #2 Quill suture. Subcutaneous tissues were closed with 2-0 Vicryl interrupted suture. The skin was closed with running 3-0 Quill suture. Dermabond was applied to the incision. Sterile compressive dressing was then applied. All sponge and needle counts were deemed correct prior to closure. The patient tolerated procedure without apparent complication. She was transferred to recovery room in stable condition. MMODL / IJN: [id number] /
--- NOTE | 2020-03-14 11:53 | XR ---
EXAMINATION TYPE: XR knee limited LT DATE OF EXAM: 03/14/2020 CLINICAL HISTORY: Left knee status post total knee replacement. TECHNIQUE: Portable AP and crosstable lateral views of the left knee are obtained immediately postop eratively. COMPARISON: None FINDINGS: Metallic hardware from total left knee arthroplasty is seen and appears satisfactory in al ignment and position. There is evidence of recent surgery with diffuse subcutaneous gas and soft tis elie irregularity. No unexpected radiopaque foreign body. IMPRESSION: METALLIC HARDWARE FROM TOTAL LEFT KNEE ARTHROPLASTY IS SATISFACTORY IN ALIGNMENT.
[2020-03-14] MEDS: HYDROcodone/APAP 7.5-325MG 1 EACH TAB PO PRN (14:53)
[2020-03-14] MEDS: ESCITALOPRAM 10 MG TAB PO SCH (16:12)
[2020-03-14] MEDS: HYDROmorphone 0.5 MG/0.5 ML SYRINGE IVP PRN ×2 (17:02→20:14)
[2020-03-14] MEDS: ASPIRIN 81 MG PO SCH (20:15)
[2020-03-14] MEDS: SENNOSIDES-DOCUSATE SODIUM 1 EACH TAB PO SCH (20:15)
[2020-03-14] MEDS: HYDROmorphone 1 MG/ML 1 ML SYRINGE IVP PRN (23:22)
[2020-03-14 23:45] LABS: Appearance,Urine Cloudy (Clear); Bacteria,Urine Rare /hpf; Bilirubin,Urine Negative (Negative); Blood,Urine Negative (Negative); Color,Urine Yellow; Glucose,Urine (UA) Negative (Negative); Hyaline Casts,Urine 3 /lpf (0-2); Ketones,Urine Negative (Negative); Leukocyte Esterase,Urine Negative (Negative); Mucus,Urine Occasional /hpf; Nitrite,Urine Negative (Negative); PH, Urine 5.5 (5.0-8.0); Protein,Urine Negative (Negative); RBC,Urine 1 /hpf (0-5); Specific Gravity,Urine 1.025 (1.001-1.035); Squamous Epithelial Cell,Urine 8 /hpf (0-4); Urobilinogen,Urine <2.0 mg/dL (<2.0); WBC,Urine <1 /hpf (0-5)
[2020-03-15] MEDS: HYDROcodone/APAP 7.5-325MG 1 EACH TAB PO PRN (01:12)
[2020-03-15] MEDS: LACTATED RINGERS 1,000 ML IV SCH ×3 (01:13→15:30)
[2020-03-15] MEDS: HYDROmorphone 0.5 MG/0.5 ML SYRINGE IVP PRN (02:49)
--- NOTE | 2020-03-15 03:27 | CONS ---
CONSULTATION DATE OF SERVICE: 03/14/2020 REASON FOR CONSULTATION: Advice regarding hypertension and other multiple medical issues requested by Dr. Epps. HISTORY OF PRESENT ILLNESS: This 54-year-old woman with a past medical history of multiple medical problems including history of hypertension, history of DJD, history of rectal prolapse, history of back surgery, DJD being followed by Dr. Pascual in the outpatient setting underwent left total knee arthroplasty by Dr. Epps. The patient tolerated the procedure well and the patient is being closely monitored. There is no history of fever, rigors. No history of headache, loss of consciousness or seizures at this time. PAST MEDICAL HISTORY: History of CVA, TIA, history of hypertension, history of DJD. MEDICATIONS: The home medications prior to admission include: 1. Bactrim DS 1 p.o. b.i.d. 2. Cozaar 25 mg p.o. daily. 3. Advil 200 mg q.6 p.r.n. 4. Lexapro 30 mg p.o. daily. 5. Adderall XR 25 mg p.o. q.a.m. 6. Tylenol 325 mg q.4 p.r.n. ALLERGIES: None. FAMILY HISTORY: History of cancer, history of DVT, history of rheumatoid arthritis, history of colon cancer, lupus. SOCIAL HISTORY: No history of smoking. No history of alcohol intake. REVIEW OF SYSTEMS: ENT: No diminished hearing or diminished vision. CARDIOVASCULAR SYSTEM: No angina. RESPIRATORY SYSTEM: As mentioned earlier GI: As mentioned earlier. : No dysuria. NERVOUS SYSTEM: No numbness or weakness. ALLERGIES/IMMUNOLOGY: No asthma. MUSCULOSKELETAL: As mentioned earlier. HEMATOLOGY/ONCOLOGY: No history of anemia. ENDOCRINE: No history of diabetes or hypothyroidism. CONSTITUTIONAL: As mentioned earlier. DERMATOLOGY: Negative. RHEUMATOLOGY: Negative. PSYCHIATRY: As mentioned earlier. PHYSICAL EXAMINATION: The patient is alert and oriented x3. Pulse is 79 blood pressure 90/52, respiration 17, temperature 97.5, pulse ox 94% on room air, HEENT: Conjunctivae normal. Oral mucosa moist . NECK: No jugular venous distention. No carotid bruit. No lymph node enlargement. CARDIOVASCULAR: S1, S2 muffled. RESPIRATORY: Breath sounds diminished at the bases. No rhonchi, no crackles. ABDOMEN: Soft. LEGS: Status post knee arthroplasty. NERVOUS SYSTEM: Higher functions as mentioned. Moves all 4 limbs. No focal motor or sensory deficits. LYMPHATICS: No lymphadenopathy of the neck, axillae or groin. SKIN: No ulcer, rash or bleeding. JOINTS: No active deforming arthropathy. LABS: Sugar is 85. Otherwise preop labs, coags are normal. Chemistry is also within normal limits. CBC also within normal limits. ASSESSMENT: 1. Status post left total knee arthroplasty. 2. History of cerebrovascular accident, transient ischemic attack. 3. Hypertension. 4. History of degenerative joint disease. 5. History of rectal prolapse. 6. History of bariatric surgery. 7. History of attention deficit disorder, attention deficit hyperactivity disorder. 8. History of anxiety. 9. Obesity with body mass index of 36.8. RECOMMENDATIONS AND DISCUSSION: This 54-year-old woman who presented after surgery. At this time, I recommend to continue current medications, continue symptomatic treatment. Otherwise I recommend to resume the home medications and also recommend to check UA with micro and other than that DVT prophylaxis and incentive spirometry. We will follow the patient closely with you. The patient may be asked to follow with Dr. Pascual closely after discharge. Thank you Dr. Epps for letting us participate in the care of this patient. MMODL / IJN: [id number] /
[2020-03-15] MEDS: HYDROmorphone 1 MG/ML 1 ML SYRINGE IVP PRN ×2 (06:04→10:11)
[2020-03-15] MEDS: DEXTROAMPHETAMINE PO SCH (08:29)
[2020-03-15] MEDS: AMPHETAMINE PO SCH (08:29)
[2020-03-15 08:33] LABS: Basophils % (A) 0 %; Eosinophils # (A) 0.1 k/uL (0-0.7); Eosinophils % (A) 1 %; HCT 32.4 % (34.0-46.0); HGB 10.2 gm/dL (11.4-16.0); Hypochromasia Slight; Lymphocytes # (A) 1.2 k/uL (1.0-4.8); Lymphocytes % (A) 24 %; MCH 28.9 pg (25.0-35.0); MCHC 31.4 g/dL (31.0-37.0); MCV 92.2 fL (80.0-100.0); Mean Platelet Volume 9.7; Monocytes # (A) 0.3 k/uL (0-1.0); Monocytes % (A) 6 %; Neutrophils # (A) 3.3 k/uL (1.3-7.7); Neutrophils % (A) 68 %; Platelet Count 117 k/uL (150-450); RBC 3.51 m/uL (3.80-5.40); RDW 13.8 % (11.5-15.5)
[2020-03-15] MEDS: ESCITALOPRAM 10 MG TAB PO SCH (08:34)
[2020-03-15] MEDS: LOSARTAN 25 MG TAB PO SCH (08:34)
[2020-03-15] MEDS: ASPIRIN 81 MG PO SCH ×2 (08:34→20:20)
[2020-03-15 08:46] LABS: African American GFR (CKD) >90 (>60 ml/min/1.73 sqM); Anion Gap 6 mmol/L; Blood Urea Nitrogen 15 mg/dL (7-17); Calcium 8.3 mg/dL (8.4-10.2); Carbon Dioxide 27 mmol/L (22-30); Chloride 103 mmol/L (98-107); Glucose 90 mg/dL (74-99); Non-African American GFR(CKD) 79 (>60 ml/min/1.73 sqM); Potassium 4.2 mmol/L (3.5-5.1); Sodium 136 mmol/L (137-145)
--- NOTE | 2020-03-15 09:12 | P.PN ---
Progress Note - Text 03/15 756AM 54-year-old female status post total knee replacement. Patient seen and evaluated this morning, patient has an On-Q pump for postop pain control with solution running at 12 mL an hour, patient has a VAS of 12. The pain is located posteriorly in an area that the On-Q pump is no coverage. She needs oral medications as well as IV pain meds to control the pain.
[2020-03-15] MEDS: MULTIVITAMINS, THERA 1 EACH TAB PO SCH (12:16)
[2020-03-15] MEDS ORDERED: HYDROcodone/APAP 10-325MG 1 EACH TAB PO PRN (12:48)
[2020-03-15] MEDS: HYDROcodone/APAP 10-325MG 1 EACH TAB PO PRN ×2 (14:15→20:19)
[2020-03-15] MEDS: diazePAM 5 MG TAB PO PRN ×2 (14:21→22:39)
--- NOTE | 2020-03-15 16:01 | PN ---
PROGRESS NOTE DATE OF SERVICE: 03/15/2020 This 54-year-old woman who was admitted after left total knee arthroplasty is complaining of some knee pain. No chest pain. No palpitations. No fever. Orthopedic Surgery is following the patient closely. PHYSICAL EXAMINATION: Alert and oriented x3. Pulse is 73, blood pressure 96/52, respiration 18, temperature 98.4, pulse ox 93% on room air. HEENT: Conjunctivae normal. NECK: No jugular venous distention. CARDIOVASCULAR SYSTEM: S1, S2 muffled. RESPIRATORY SYSTEM: Breath sounds diminished at the bases. No rhonchi. No crackles. ABDOMEN: Soft. LEGS: Status post surgery. NERVOUS SYSTEM: No focal deficit. LABS: Hemoglobin 10.2, platelets 117. Sodium 136. UA noted. ASSESSMENT: 1. Status post left total knee arthroplasty. 2. History of cerebrovascular accident, transient ischemic attack. 3. Severe knee pain and gait dysfunction. 4. Hypertension. 5. History of degenerative joint disease. 6. History of rectal prolapse. 7. History of bariatric surgery. 8. Attention deficit disorder, attention deficit hyperactivity disorder. 9. History of anxiety. 10.Obesity with body mass index of 36.8. RECOMMENDATIONS AND DISCUSSION: I recommend to continue current medications, continue with the monitoring, symptomatic treatment. Continue with DVT prophylaxis. Incentive spirometry. Continue the rest of the medications. Closely follow. Further recommendations to follow. MMODL / IJN: [id number] /
[2020-03-15] MEDS: traMADol 50 MG TAB PO PRN (17:56)
[2020-03-15] MEDS: SENNOSIDES-DOCUSATE SODIUM 1 EACH TAB PO SCH (20:20)
[2020-03-16] MEDS: traMADol 50 MG TAB PO PRN ×2 (00:14→08:11)
[2020-03-16] MEDS: HYDROmorphone 0.5 MG/0.5 ML SYRINGE IVP PRN (01:36)
[2020-03-16] MEDS: LACTATED RINGERS 1,000 ML IV SCH ×3 (01:59→08:33)
[2020-03-16] MEDS: HYDROcodone/APAP 10-325MG 1 EACH TAB PO PRN ×2 (03:14→11:43)
[2020-03-16] MEDS: MULTIVITAMINS, THERA 1 EACH TAB PO SCH (08:11)
[2020-03-16] MEDS: diazePAM 5 MG TAB PO PRN (08:11)
[2020-03-16] MEDS: ASPIRIN 81 MG PO SCH (08:11)
[2020-03-16] MEDS: LOSARTAN 25 MG TAB PO SCH (08:12)
[2020-03-16] MEDS: ESCITALOPRAM 10 MG TAB PO SCH (08:13)
[2020-03-16] MEDS: AMPHETAMINE PO SCH (08:32)
[2020-03-16] MEDS: DEXTROAMPHETAMINE PO SCH (08:32)
--- NOTE | 2020-03-16 09:10 | P.DS ---
Providers Date of admission: 03/14/20 23:24 Expected date of discharge: 03/16/20 Attending physician: Juan Epps Consults: 03/14/20 08:56 Consult Physician Routine Consulting Provider: Juwan Montano Consult Reason/Comments: post op medical management Do you want consulting provider notified?: Yes Primary care physician: Asael Pascual - Discharge Diagnosis(es) (1) Osteoarthritis of left knee Current Visit: Yes Status: Acute (2) Status post left knee replacement Current Visit: Yes Status: Acute Hospital Course: This is a pleasant 54-year-old female last seen in our office with complaints of left knee pain. Patient has known history of degenerative arthritis of the left knee and presented to discuss options. After discussion and consideration, the patient elected to proceed with a left total knee arthroplasty. Patient was seen preoperatively, and medically cleared for surgery by her primary care physician. Patient was admitted to [facility] underwent left total knee arthroplasty on 03/14/[address] Epps. The procedure was performed without complications or sequelae. The patient is seen and evaluated at bedside today. Pain is not well controlled at this time but the patient would like to leave the hospital today. She states she can manage her pain better at home. Patient has no new complaints today and denies any fevers, chills, nausea, vomiting, or shortness of breath. Vital signs are stable. Dressing is clean dry and intact. Incision looks fine with no erythema or active drainage. Calf is soft and nontender. Patient has full foot and ankle motion without difficulty. Patient's left lower extremity is neurovascularly intact. The patient is orthopedically stable for discharge today. Pertinent Studies: Laboratory Tests 03/15/20 03/15/20 07:49 07:49 WBC 5.0 RBC 3.51 L Hgb 10.2 L Hct 32.4 L Plt Count 117 L Sodium 136 L Calcium 8.3 L Patient Condition at Discharge: Stable Plan - Discharge Summary Discharge Rx Participant: Yes New Discharge Prescriptions: New Aspirin [Adult Low Dose Aspirin EC] 81 mg PO BID #60 tablet. HYDROcodone/APAP 10-325MG [[place] 10-325] 1 - 2 tab PO Q4-6H PRN #32 tab PRN Reason: Pain oxyCODONE HCL/ACETAMINOPHEN [Percocet 5-325 mg] 1 tab PO Q4-6H PRN #32 tab PRN Reason: Pain No Action Escitalopram [Lexapro] 30 mg PO DAILY Dextroamphetamine/Amphetamine [Adderall Xr] 25 mg PO QAM Losartan [Cozaar] 25 mg PO DAILY Acetaminophen [Tylenol] 325 mg PO Q4H PRN PRN Reason: Pain Sulfamethox-Tmp 800-160Mg [Bactrim DS 800-160 mg] 1 tab PO Q12HR Ibuprofen [Advil] 200 mg PO Q6HR PRN PRN Reason: Pain Discharge Medication List Dextroamphetamine/Amphetamine [Adderall Xr] 25 mg PO QAM 02/12/17 [History] Escitalopram [Lexapro] 30 mg PO DAILY 02/12/17 [History] Acetaminophen [Tylenol] 325 mg PO Q4H PRN 02/28/19 [History] Losartan [Cozaar] 25 mg PO DAILY 02/28/19 [History] Ibuprofen [Advil] 200 mg PO Q6HR PRN 03/13/20 [History] Sulfamethox-Tmp 800-160Mg [Bactrim DS 800-160 mg] 1 tab PO Q12HR 03/13/20 [History] Aspirin [Adult Low Dose Aspirin EC] 81 mg PO BID #60 tablet. 03/15/20 [Rx] HYDROcodone/APAP 10-325MG [[place] 10-325] 1 - 2 tab PO Q4-6H PRN #32 tab 03/16/20 [Rx] oxyCODONE HCL/ACETAMINOPHEN [Percocet 5-325 mg] 1 tab PO Q4-6H PRN #32 tab 03/16/20 [Rx] Follow up Appointment(s)/Referral(s): [facility], [NON-STAFF] - As Needed Juan Epps MD [STAFF PHYSICIAN] - 10 Days Patient Instructions/Handouts: Joint Replacement Surgery (DC) Activity/Diet/Wound Care/Special Instructions: Keep wound clean and dry Take meds as directed Follow-up with Dr. Epps in office Weight bear as tolerated May shower in 3 days if no bleeding Discharge Disposition: HOME WITH HOME HEALTH SERVICES
[2020-03-16 09:11] VITALS: BP 98/62; PULSE 73; RESP 18; TEMP 97.6
[2020-03-16] MEDS: oxyCODONE-APAP 5-325MG 1 EACH TAB PO PRN ×2 (09:12→13:38)
== END 2020-03-16 13:45 | disposition home health service (06) ==
LOC: OR 05:35 → 4SSUR 12:45 → OR 23:56
PROVIDERS: ADMIT Orthopaedic Surgery Sports Medicine; ATTEND Orthopaedic Surgery Sports Medicine
DX: M17.12 Unilateral primary osteoarthritis, left knee (principal); I10 Essential (primary) hypertension; M19.90 Unspecified osteoarthritis, unspecified site; F90.9 Attention-deficit hyperactivity disorder, unspecified type; F41.9 Anxiety disorder, unspecified; K21.9 Gastro-esophageal reflux disease without esophagitis; E66.9 Obesity, unspecified; D50.9 Iron deficiency anemia, unspecified; H91.90 Unspecified hearing loss, unspecified ear; Z68.36 Body mass index [BMI] 36.0-36.9, adult; Z98.84 Bariatric surgery status; Z86.73 Personal history of transient ischemic attack (TIA), and cerebral infarction without residual deficits; Z79.899 Other long term (current) drug therapy; Z79.1 Long term (current) use of non-steroidal anti-inflammatories (NSAID); Z80.0 Family history of malignant neoplasm of digestive organs; Z82.61 Family history of arthritis; Z82.49 Family history of ischemic heart disease and other diseases of the circulatory system; Z84.89 Family history of other specified conditions; Z83.3 Family history of diabetes mellitus
CPT/HCPCS: 97116; 97110; 97161; 64448; 76942; 80048; 85025; 81001; 88300; 73560; 27130; G0378 ×3; C1776; C1713; J2250; J0171; J1100; J0690 ×2; J2405; J3010; J1885; J1170 ×5; J2795; J2370; J2704; J0735

== ENCOUNTER → 2020-08-05 | Outpatient (CLI) | payer BC ==
[2020-08-06 05:08] LABS: Albumin 4.5 g/dL (3.80-4.90); Albumin/Globulin Ratio 1.88 (1.60-3.17); Anion Gap 8.3 mmol/L (4.00-12.00); BUN/Creat Ratio 17.78 Ratio (12.00-20.00); Calcium 9.4 mg/dL (8.7-10.3); Carbon Dioxide 26.7 mmol/L (21.6-31.8); Globulin 2.4 g/dL (1.6-3.3); Non-African American GFR(CKD) 72.5 (60.0-200.0); Potassium 3.5 mmol/L (3.5-5.5); Total Bilirubin 0.2 mg/dL (0.3-1.2); Total Protein 6.9 g/dL (6.2-8.2)
== END | disposition home or self-care (01) ==
LOC: LABWHC1 13:25
PROVIDERS: ATTEND Nurse Practitioner Family
DX: F41.1 Generalized anxiety disorder (principal)
CPT/HCPCS: 36415; 80053

== ENCOUNTER → 2020-12-31 | Outpatient (CLI) | payer BC ==
--- NOTE | 2020-12-31 12:48 | BD ---
EXAMINATION TYPE: Axial Bone Density DATE OF EXAM: 12/31/2020 COMPARISON: 08.02.2015 CLINICAL HISTORY: 55 YR OLD FEMALE....ICD-10 CODE: Z13.820 SCREENING FOR OSTEOPOROSIS Height: 68.5 Weight: 224.5 FRAX RISK QUESTIONS: NOTHING TO NOTE HERE RISK FACTORS HISTORY OF: Surgery to Spine TO L5 S1, LAMINECTOMY AND DISC REMOVAL...AT AGE 24 YRS OLD Family History of Osteoporosis: YES, MOTHER NO HIP FX Active: YES, WORKS AT [employer] Diet low in dairy products/other sources of calcium: YES, LACTOSE INTOLERANT Postmenopausal woman: YES AT AGE 54 YRS Hyperparathyroidism: NO Adrenal Insufficiency: NO MEDICATIONS: Additional Medications: CYMBALTA, VIT D AND CALCIUM Additional History: ARTHRITIS, BILAT TKRS, EXAM MEASUREMENTS: Bone mineral densitometry was performed using the YongChe System. Bone mineral density about the R hip (g/cm2): 0.865 Bone mineral density about the L hip (g/cm2): 0.842 T Score values are as follows: -----R Neck: -1.1 -----L Neck: -1.3 -----R Total: -1.1 -----L Total: -1.3 Bone mineral density has: Decreased -9.1% since study of: 08.02.2015 FRAX%s: THERE IS A 5.8% CHANCE FOR A MAJOR OSTEOPOROTIC FX AND A 0.4% FOR HIP.....PROBABILITY FOR FX IN 10 YRS TIME Bone mineral density about the L Wrist (g/cm2): 0.561 T Score values are as follows: -----Dist. R+U: -2.5 -----Prox. R+U: -0.2 -----Radius total: -1.7 Bone mineral density FIRST SCAN OF HER LT WRIST IMPRESSION: Osteopenia (T Score between -2.5 and -1). There is slightly increased risk of fracture and the patient may be considered for treatment. Re-Screen 2-5 years. NOTE: T-SCORE=SD OF THE YOUNG ADULT MEAN.
--- NOTE | 2021-01-01 13:56 | MM ---
Reason for exam: screening (asymptomatic). Last mammogram was performed 3 years and 3 months ago. History: Reductions of both breasts. Physical Findings: A clinical breast exam by your physician is recommended on an annual basis and results should be correlated with mammographic findings. MG 3D Screening Mammo W/Cad Bilateral CC and MLO view(s) were taken. Prior study comparison: October 07, 2017, bilateral MG 3d screening mammo w/cad. August 06, 2015, right breast MG 3d work up w/cad RT. No significant changes when compared with prior studies. ASSESSMENT: Benign, BI-RAD 2 RECOMMENDATION: Routine screening mammogram of both breasts in 1 year.
== END | disposition home or self-care (01) ==
LOC: RADBDWWP 07:32
PROVIDERS: ATTEND Family Medicine
DX: Z12.31 Encounter for screening mammogram for malignant neoplasm of breast (principal); Z13.820 Encounter for screening for osteoporosis; M85.89 Other specified disorders of bone density and structure, multiple sites
CPT/HCPCS: 77063; 77067; 77080

== ENCOUNTER → 2021-06-22 | Outpatient (CLI) | payer BC, OTHER | END | disposition home or self-care (01) | LOC: LABWHC1 13:59 | PROVIDERS: ATTEND Emergency Medicine | DX: U07.1 COVID-19 (principal) | CPT/HCPCS: 87635 ==

== ENCOUNTER 2021-06-26 13:17 | Outpatient (CLI) | payer BC, OTHER ==
[~2021-06-26 13:17] MED LIST changes: -ACETAMINOPHEN TAB 500 MG TAB PO ONE; +CASIRIVIMAB (REGN10933) (EUA) 600 MG, IMDEVIMAB (REGN10987) (EUA) 600 MG in SODIUM CHLO... IVPB NR; -GABAPENTIN 300 MG CAP PO ONE; -MELOXICAM 7.5 MG TAB PO ONE; -ONDANSETRON 4 MG/2 ML VIAL IVP ONE; +SODIUM CHLORIDE 0.9% 50 ML IVPB NR; -TRANEXAMIC ACID 1,000 MG in SODIUM CHLORIDE 0.9% 100 ML IVPB ONE; -fentaNYL (PF) 50 MCG/ML 2 ML AMP IV PRN
[2021-06-26] MEDS: SODIUM CHLORIDE 0.9% 500 ML 500 ML in EMPTY BAG 1 BAG IV PRN ×2 (13:33→13:53)
[2021-06-26 13:54] VITALS: RESP 16
[2021-06-26 14:45] VITALS: BP 120/82; PULSE 79; TEMP 97.6
== END 2021-06-26 14:59 ==
LOC: PROCWHC3 13:17
PROVIDERS: ATTEND Family Medicine
DX: U07.1 COVID-19 (principal); E66.9 Obesity, unspecified; Z68.32 Body mass index [BMI] 32.0-32.9, adult
CPT/HCPCS: 96361; Q0243; M0243

== ENCOUNTER → 2021-07-28 | Outpatient (CLI) | payer BC ==
[2021-07-28 10:59] LABS: African American GFR (CKD) 73.4 (60.0-200.0); Albumin 4.3 g/dL (3.8-4.9); Albumin/Globulin Ratio 1.59 (1.60-3.17); Anion Gap 9.4 mmol/L (10.00-18.00); BUN/Creat Ratio 14.6 Ratio (12.00-20.00); Blood Urea Nitrogen 14.6 mg/dL (9.0-27.0); Calcium 9.3 mg/dL (8.7-10.3); Carbon Dioxide 25.6 mmol/L (20.0-27.5); Globulin 2.7 g/dL (1.6-3.3); Non-African American GFR(CKD) 63.4 (60.0-200.0); Potassium 4.2 mmol/L (3.5-5.5); Total Bilirubin 0.3 mg/dL (0.30-1.20)
== END | disposition home or self-care (01) ==
LOC: LABWHC1 06:50
PROVIDERS: ATTEND Nurse Practitioner Family
DX: E16.2 Hypoglycemia, unspecified (principal)
CPT/HCPCS: 36415; 80053; 83036; 83525; 84206

== ENCOUNTER → 2021-07-28 | Outpatient (CLI) | payer BC | END | disposition home or self-care (01) | LOC: RADUSWWP 06:49 | PROVIDERS: ATTEND Nurse Practitioner Family | DX: Z53.9 Procedure and treatment not carried out, unspecified reason (principal) ==

== ENCOUNTER 2022-08-05 11:39 | Emergency (ER) | payer BC, OTHER ==
[2022-08-05] MEDS ORDERED: KETOROLAC 15 MG/ML 1 ML VIAL IM STA (12:13)
--- NOTE | 2022-08-05 13:32 | CT ---
EXAMINATION TYPE: CT brain cspine wo con DATE OF EXAM: 08/05/2022 COMPARISON: MRI brain and cervical spine March 11, 2020 HISTORY: Hit in head, no LOC, neck and left arm pain. CT DLP: 1462.6 mGycm. Automated Exposure Control for Dose Reduction was Utilized. TECHNIQUE: CT scan of the head and cervical spine are performed without contrast. FINDINGS: There is no acute intracranial hemorrhage, mass effect, or midline shift identified. The ventricles and sulci are within normal limits in size. Some areas of low attenuation in the periven tricular white matter are redemonstrated. The calvarium is intact. The globes are intact and the visu alized sinuses are clear. Cervical spine is visualized in its entirety from C1 through upper thoracic levels and demonstrates s atisfactory alignment without evidence of acute fracture or dislocation. Prevertebral soft tissue ap pears within normal limits. The C1-C2 articulation is within normal limits on the coronal images jennifer tebral body heights are maintained. There is mild/moderate spurring and disc space narrowing C5-C6 an d C6-C7 levels. Posterior spur disc complex effaces the anterior thecal sac at C5-C6 level and C6-C7 level. Small posterior disc herniation at C3-C4 level effaces anterior thecal sac. Lung apices show no pneumothorax. IMPRESSION: 1. There is no acute fracture or dislocation evident in the cervical spine. 2. No acute intracranial hemorrhage or midline shift is seen.
--- NOTE | 2022-08-05 14:00 | ED ---
Neck Injury/Pain HPI - General Chief Complaint: Neck Pain/Injury Stated Complaint: [facility] - neck injury Time Seen by Provider: 08/05/22 12:05 Source: patient, RN notes reviewed Mode of arrival: ambulatory Limitations: no limitations - History of Present Illness Initial Comments: Patient is a 57-year-old female presenting to the emergency room from her work department after having a piece of plexiglass fall forward onto her. She reports that the plexiglass fell onto her head and right wrist and since that time she has had severe pain in her neck and difficulty moving her left shoulder. She denies pain or trouble in these locations prior to the piece of plexiglass landing on her. She denies the shelf or any other heavier apparatus falling on her. Denies any lacerations or other concerns regarding the injury. Range of motion is impaired due to pain and she declines active range of motion passive range of motion is full. No swelling redness or wounds noted. - Related Data Home Medications Medication Instructions Recorded Confirmed Dextroamphetamine/Amphetamine 25 mg PO QAM 02/12/17 03/14/20 [Adderall Xr] Acetaminophen [Tylenol] 325 mg PO Q4H PRN 02/28/19 03/14/20 Ibuprofen [Advil] 200 mg PO Q6HR PRN 03/13/20 03/14/20 Ascorbic Acid [Vitamin C] 1 tab PO DAILY 06/26/21 DULoxetine HCL [Cymbalta] 1 tab PO DAILY 06/26/21 Losartan [Cozaar] 1 tab PO DAILY 06/26/21 Zinc 2 tab PO DAILY 06/26/21 Previous Rx's Medication Instructions Recorded Aspirin [Adult Low Dose Aspirin EC] 81 mg PO BID #60 tablet. 03/15/20 Allergies Allergy/AdvReac Type Severity Reaction Status Date / Time No Known Allergies Allergy Verified 08/05/22 12:13 Review of Systems ROS Statement: Those systems with pertinent positive or pertinent negative responses have been documented in the HPI. ROS Other: All systems not noted in ROS Statement are negative. Past Medical History Past Medical History: CVA/TIA, Hypertension, Osteoarthritis (OA) Additional Past Medical History / Comment(s): RECTAL PROLAPSE, TIA 2008-NO RESIDUAL EFFECT,UTI; 2 herniated cervical discs, HYPOGLYCEMIA-EATS FREQUENTLY,. IRON DEFICIENCY ANEMIA. History of Any Multi-Drug Resistant Organisms: None Reported Past Surgical History: Back Surgery, Bariatric Surgery, Hysterectomy, Orthopedic Surgery Additional Past Surgical History / Comment(s): GASTRIC BYPASS, PAIN CLINIC PROCEDURES Past Anesthesia/Blood Transfusion Reactions: Previous Problems w/ Anesthesia Additional Past Anesthesia/Blood Transfusion Reaction / Comment(s): WOKE UP DURING LAST PAIN CLINIC PROCEDURE Past Psychological History: ADD/ADHD, Anxiety Smoking Status: Never smoker Past Alcohol Use History: None Reported Past Drug Use History: None Reported - Past Family History Father Family Medical History: Congestive Heart Failure (CHF), Diabetes Mellitus Mother Family Medical History: Cancer, Deep Vein Thrombosis (DVT), Rheumatoid Arthritis (RA) Additional Family Medical History / Comment(s): COLON CANCER, LUPUS General Exam Limitations: no limitations General appearance: alert, in no apparent distress Head exam: Present: atraumatic, normocephalic, normal inspection Eye exam: Present: normal appearance, PERRL, EOMI. Absent: scleral icterus, conjunctival injection, periorbital swelling Neck exam: Present: normal inspection, tenderness (posterior), full ROM (Refuses active range of motion). Absent: lymphadenopathy Respiratory exam: Absent: respiratory distress, accessory muscle use Cardiovascular Exam: Present: regular rate GI/Abdominal exam: Absent: distended Right Shoulder Exam: Present: full ROM (Refuses active range of motion full passive range of motion). Absent: swelling, abrasion, laceration, ecchymosis, deformity, crepitus, dislocation Vascular: Absent: vascular compromise Back exam: Present: normal inspection Neurological exam: Present: alert, oriented X3, CN II-XII intact Psychiatric exam: Present: anxious Skin exam: Present: warm, dry, intact, normal color. Absent: rash Course Vital Signs 08/05/22 12:07 Temperature 98.3 F Pulse Rate 101 H Respiratory 22 Rate Blood Pressure 133/85 O2 Sat by Pulse 99 Oximetry Medical Decision Making - Medical Decision Making 57-year-old female presenting to the emergency room with complaints of neck pain with difficulty in moving left shoulder and arm after a piece plexiglass falling onto her head and right arm. Will obtain CT of the head and neck however given weight and distribution of plexiglass doubt significant trauma injuries. No indication for further diagnostic imaging or laboratory studies. Will give dose of IM Toradol for pain and monitor. Computed tomography scan brain and cervical spine interpreted by me demonstrates no acute intracranial process or or cervical spine injury including any fracture or dislocation. Continues to have some pain despite IM Toradol however no indication for further medication, diagnostic imaging or laboratory studies. Will discharge home in stable condition with follow-up [facility] as needed and return to work tomorrow. Case discussed with Dr. Andrade. - Radiology Data Radiology results: report reviewed, image reviewed Disposition Clinical Impression: Acquired torticollis Disposition: HOME SELF-CARE Condition: Stable Instructions (If sedation given, give patient instructions): Acute Neck Pain (ED) Additional Instructions: Please utilize [id number] ibuprofen or Tylenol as needed for pain. Range of motion as tolerated encouraged. Please follow-up with [facility] and/or primary care provider. Please return to the Emergency Department if symptoms worsen or any other concerns. Is patient prescribed a controlled substance at d/c from ED?: No Referrals: Asael Pascual III, MD [Primary Care Provider] - 1-2 days (Please follow-up with [facility] as needed) Time of Disposition: 14:01
[2022-08-05 14:52] VITALS: BP 130/76; PULSE 82; RESP 20; TEMP 98.2
== END 2022-08-05 14:51 | disposition home or self-care (01) ==
LOC: EC 11:39
DX: M43.6 Torticollis (principal); I10 Essential (primary) hypertension
CPT/HCPCS: 72125; 70450; 99284; 96372; J1885

== ENCOUNTER → 2022-08-12 | Outpatient (CLI) | payer OTHER ==
--- NOTE | 2022-08-12 09:41 | XR ---
EXAMINATION TYPE: XR shoulder complete LT DATE OF EXAM: 08/12/2022 COMPARISON: NONE HISTORY: Pain TECHNIQUE: Three views are submitted. FINDINGS: The osseous structures are intact. There is no acute fracture or dislocation. Severe arthropathy is seen joint. IMPRESSION: 1. Severe AC joint arthropathy.
== END | disposition home or self-care (01) ==
LOC: RADXRMAIN 09:23
PROVIDERS: ATTEND Emergency Medicine
DX: S00.83XA Contusion of other part of head, initial encounter (principal); M12.811 Other specific arthropathies, not elsewhere classified, right shoulder

== ENCOUNTER → 2022-08-31 | Outpatient (CLI) | payer OTHER ==
--- NOTE | 2022-08-31 22:21 | MR ---
MRI CERVICAL SPINE: CLINICAL HISTORY: Neck and left arm pain, headaches. Neck and left arm pain, headaches. TECHNIQUE: Multiplanar, multisequence imaging of the cervical spine is performed without IV contrast. COMPARISON: Prior MRI cervical spine January 11, 2020 FINDINGS: Sagittal images of the cervical spine show the craniocervical junction to remain within nor mal limits. The cervical and upper thoracic spinal cord remains normal in caliber, course, and signa l. Vertebral alignment is satisfactory on current study. The vertebral body heights remain normal. Mild to moderate multilevel disc space narrowing is redemonstrated. The bone marrow signal intensity is within normal limits. Axial images at C2-C3 level redemonstrate uncovertebral facet degenerative changes causing mild bilat eral neural foraminal narrowing. No significant change from prior. Axial images at C3-C4 level show uncovertebral facet degenerative changes and tiny central disc protr usion. Minimal effacement of the anterior thecal sac and mild bilateral neural foraminal narrowing is seen. Axial images at C4-C5 level shows uncovertebral facet degenerative changes bilaterally and mild to mo derate broad disc bulge effacing the anterior thecal sac and moderate bilateral neural foraminal narr owing. Axial images at C5-C6 level shows a large right paracentral/foraminal disc protrusion effacing the an terior thecal sac and causing advanced right-sided neural foraminal narrowing and moderate left-sided neural foraminal narrowing. Findings more prominent from prior study though there is artifact presen t. Axial images at C6-C7 level with broad-based right paracentral disc protrusion effacing the anterior thecal sac and causing [id number] bilateral neural foraminal narrowing similar in appearance to prior study. Axial images at C7-T1 level remain within normal limits. IMPRESSION: Multilevel degenerative changes in the cervical spine as detailed above with findings mos t prominent at C5-C6 level and showing interval degenerative progression from prior MRI noted.
== END | disposition home or self-care (01) ==
LOC: RADMRIMAIN 20:15
PROVIDERS: ATTEND Orthopaedic Surgery
DX: M47.22 Other spondylosis with radiculopathy, cervical region (principal); M50.123 Cervical disc disorder at C6-C7 level with radiculopathy; M99.71 Connective tissue and disc stenosis of intervertebral foramina of cervical region
CPT/HCPCS: 72141

== ENCOUNTER 2022-11-12 06:04 | Day surgery (SDC) | payer OTHER ==
[2022-11-12] MEDS ORDERED: LACTATED RINGERS 1,000 ML IV SCH (06:51)
[2022-11-12] MEDS ORDERED: LIDOCAINE 1% (10MG/ML) FOR IV START INTRADERMA PRN (06:51)
[2022-11-12] MEDS ORDERED: IOPAMIDOL M200 10 ML VIAL ONE (07:00)
[2022-11-12] MEDS ORDERED: DEXAMETHASONE SOD PHOSPHATE 10 MG/ML 1 ML VIAL ONE (07:00)
[2022-11-12] MEDS ORDERED: MIDAZOLAM 2 MG/2 ML VIAL ONE (07:00)
[2022-11-12] MEDS ORDERED: fentaNYL (PF) 50 MCG/ML 2 ML AMP ONE (07:00)
--- NOTE | 2022-11-12 07:13 | P.PCN ---
Date of Procedure: 11/12/22 Procedure(s) Performed: . PROCEDURE 1. Cervical epidural steroid injection under fluoroscopic guidance, C6-7 (fluoroscopy images available in the radiology department ) 2. Cervical epidurogram. PREOPERATIVE DIAGNOSIS: 1- Cervical Degenerative Disc Diseases 2- Cervical radiculopathy., 3-cervical spondylosis with cervical Facet arthropathy without myelopathy.4-cervical spinal stenosis POSTOPERATIVE DIAGNOSIS: : 1- Cervical Degenerative Disc Diseases , 2- Cervical radiculopathy. 3-,cervical spondylosis with cervical Facet arthropathy without myelopathy. 4-cervical spinal stenosis ANESTHESIA: moderate sedation, with Versed 2 mg and Fentanyl 100 mcg. Sedation start time :0704 Sedation end time :0710 EBL 0 PROCEDURE INDICATION: The patient with neck pain and radiculitis unresponsive to conservative treatment consents for procedure. PROCEDURE DESCRIPTION / TECHNIQUE: The patient was seen and identified in the preoperative area. Risks, benefits, complications, including but not limited to infections ,bleeding , allergic reactions to the medications ,and not complete pain releife, and alternatives were discussed with the patient, the patient agreed to proceed with the procedure and signed the consent. Patient was taken to the OR and time out was completed. The patient was placed in the prone position on the procedure table. A pillow was placed under the patients chest to increase the cervical interlaminar space. The cervical area was prepped and draped in the usual sterile fashion. Vital signs were closely monitored during the procedure. Conscious sedation was used during the procedure to decrease patients anxiety. Using anterior-posterior fluoroscopy, the C6-7 interlaminar space was identified and the skin over this site was marked and then infiltrated with 1% lidocaine subcutaneously. Subsequently, a 20-gauge 3-1/2-inch Tuohy epidural needle was inserted and advanced toward the epidural space by means of the ``hanging-drop technique and guided by AP and lateral fluoroscopy. The correct needle position in the epidural space was verified with the injection of 2 mL of the water soluble contrast dye Isovue-200 and observing an excellent epidurogram with the epidural spread of the dye, after negative aspiration for blood and CSF and in the absence of paresthesias. then, mixture containing 20 mg Dexamethasone and 2 ml of preservative-free normal saline injected and a washout of epidurogram was seen. Needle was withdrawn intact, skin was cleansed, and bandages were applied. Complications= none. Disposition= patient was placed in supine position and transferred to the recovery room area in stable condition and there was no evidence of upper or lower extremity motor or sensory deficit after the procedure patient was discharged from recovery room after discharge criteria met and home discharge instructions was given by the staff and patient will follow with the pain clinic in 2-4 weeks
[2022-11-12] MEDS ORDERED: IV FLUID CONTINUATION 800 ML IV ONE (07:15)
[2022-11-12 07:20] VITALS: RESP 18
[2022-11-12 07:25] VITALS: TEMP 97.9
[2022-11-12 07:39] VITALS: BP 156/76; PULSE 68
--- NOTE | 2022-11-12 08:22 | FL ---
Intraoperative/procedural fluoroscopic services were provided for cervical epidural steroid injection . Total fluoroscopy time is 1 second with a total of 1 submitted image to PACS. Total DAP [id number]. Pl ease see the operative note for further details.
== END 2022-11-12 07:57 | disposition home or self-care (01) ==
LOC: ORPAIN 06:04
PROVIDERS: ATTEND Specialist
DX: M50.123 Cervical disc disorder at C6-C7 level with radiculopathy (principal); M47.22 Other spondylosis with radiculopathy, cervical region; M48.02 Spinal stenosis, cervical region
CPT/HCPCS: 62321; J2250; J1100; J3010; Q9966

== ENCOUNTER → 2022-11-30 | Outpatient (CLI) | payer OTHER ==
[2022-11-30 09:44] VITALS: BP 129/85; PULSE 82; RESP 18; TEMP 98
--- NOTE | 2022-11-30 16:27 | P.PAINPG ---
PQRS Measure Charge Sheet Comment: A 57 yr old female with a history of severe and chronic neck pain secondary to cervical DDD and spondylosis with facet arthropathy without myelopathy presents today for evaluation s/p MALCOM C6-C7. Pt states she experienced 25 % pain relief x 2-3 wks s/p procedure. Pain level is provoked at 8 /10 in intensity, constant, localized in the cervical spine, dull in character w shooting towards the L shoulder and LUE. Pain is provoked by hyperextension. Pain is alleviated with PT x 7 wks which she is currently in, use of TENS unit, use of Traction, heat, ice, medications (Ibu, Neurontin), topical, repositioning and rest. Injection resovled headaches. Interventional pain procedures completed include MALCOM C6-C7 x1 Patient is currently on Ibu, Neurontin Patient denies any side effects of the medication(s), denies excessive drowsiness or sleepiness, denies suicidal ideation and reports that the current pain medication is helping to control the pain and improve activities of daily living. Patient denies any motor or sensory deficits. Patient denies any fever or night sweats, denies any change in the bowel movements or urination. Physical Examination: -Constitutional: Cooperative. Not in acute distress . - Neurologic: Cranial nerve II to XII intact. No focal neurological deficits. - Psychatric: Alert & oriented x 3. Matching mood & appropriate affect. Judgment and insight intact. - Musculoskeletal: Cervical spine: Muscle bulk/ tone/ strength in the bilateral upper extremities normal Vertebral body tenderness to palpation over C6 Spurling test positive Distraction test positive Facet loading test positive TTP Thoracic spine Muscle bulk / tone/ strength in the bilateral paraspinal muscles normal Vertebral body tender to palpation over Facet loading test positive TTP Lumbar spine: Motor bulk/ tone/ strength lower extremities , thigh and legs : 5/5 Deep tendon reflexes : Normal Knee Jerk. Normal Ankle Jerk . Vertebral body tenderness to palpation over Lumbar Facet Loading Test positive Straight Leg Raise: positive at 30 degrees right side/ left side Gaenslen's Test positive Sacral spine : Severe tenderness over the Sacroiliac joint: right side / left side Range of motion: Flexion of the lumbar spine <60 degrees Range of motion: Extension of the lumbar spine <20 degrees Gaenslen's Test positive R / L Kevin test: positive right side / left side Thigh Thrust Test positive R / L Sacral Thrust Test positive R/ L Assessment and plan: Chronic neck pain secondary to cervical DDD, spondylosis with facet arthropathy without myelopathy Recommendation of L TFESI C6-C7 #1. May need a series of injections for optimal pain relief. Risks, benefits of procedure discussed and pt verbalized understanding. Admits to anticoagulant use or medical history of diabetes. Protocol for discontinuation/ continuation of medications medina procedure discussed. All questions answered. I have spent less than 30 minutes on patient care today. Dr Gallardo was available by phone for the evaluation of this patient. The time was used to review the medical records including relevant urine studies and Prescription hi story (MAPs), review of the available imaging, evaluation and examination of the patient, coordination of care with the medical staff and if applicable referring physicians, as well as creation of the medical record PQRS Narrative: Smoking Status Never smoker Home Medications: Ambulatory Orders Dextroamphetamine/Amphetamine [Adderall Xr] 25 mg PO QAM 02/12/17 DULoxetine HCL [Cymbalta] 60 mg PO DAILY 06/26/21 Losartan [Cozaar] 1 tab PO DAILY 06/26/21 5htp 1 tab PO DAILY 11/11/22 Balance Nature Fruit.Veg 1 tab PO DAILY 11/11/22 Gabapentin 300 mg PO TID 11/11/22 Magnesium 250 mg PO DAILY 11/11/22 Multivitamins, Thera [Multivitamin (formulary)] 1 tab PO DAILY 11/11/22 S-Adenosylmethionine Sul Tosyl [Thierno-E] 400 mg PO DAILY 11/11/22 Tumeric 1 tab PO DAILY 11/11/22 Vit D 1 tab PO DAILY 11/11/22 Controlled Substance Measures - Controlled Substance Measures Is patient prescribed a controlled substance at discharge?: No
== END ==
LOC: PNWHC3 08:55
PROVIDERS: ATTEND Specialist
DX: M50.30 Other cervical disc degeneration, unspecified cervical region (principal); M47.812 Spondylosis without myelopathy or radiculopathy, cervical region; G89.29 Other chronic pain
CPT/HCPCS: 99211

== ENCOUNTER → 2022-12-10 | Outpatient (CLI) | payer OTHER ==
--- NOTE | 2022-12-10 15:33 | CT ---
EXAMINATION TYPE: CT cervical spine wo con CT DLP: 555.8 mGycm, Automated exposure control for dose reduction was used. DATE OF EXAM: 12/10/2022 3:19 PM COMPARISON: 08/05/2022. CLINICAL INDICATION:Female, 57 years old with history of M47.22 OTHER SPONDYLOSIS WITH RADICULOPATHY, CERVI;, neck pain, pre-surg TECHNIQUE: Axial CT images from the skull base to the inferior aspect of T2 we obtained without intra venous contrast. Coronal and sagittal reformatted images were also reviewed. FINDINGS: Fracture: None. Osseous structures: Multilevel degenerative disc disease changes with endplate spurring and disc oste ophyte complex's. Disc space narrowing is worse at C5-C6 and C6-C7. There is vacuum disc phenomenon c hanges most pronounced in the right aspect of C5-C6 and C7 near the disc spaces. There is ankylosis o f C3 and C4 left lateral processes. Vertebral alignment: There is straightening of the spine. Spinal canal/Neural Foramina: Disc osteophyte complexes at C5-C6 and C6-C7 with at least mild spinal canal stenosis. Facet joint uncovertebral joint arthropathy scattered throughout the cervical spine w ith varying degrees of neural foraminal stenosis. Neural foraminal stenosis worse at right C4-C5, C5- C6 and C6-C7 with at least no foraminal stenosis. Neck soft tissues: Prevertebral soft tissues are within normal limits. Other: The airway is patent. The lung apices are clear. IMPRESSION: 1. No evidence of cervical spine fracture. 2. Moderate multilevel degenerative disc disease worse at C5 and C6 with moderate right C4-C5, C5-6 a nd C6-C7 neural foraminal stenosis.
== END | disposition home or self-care (01) ==
LOC: RADCTMAIN 15:03
PROVIDERS: ATTEND Orthopaedic Surgery
DX: M47.22 Other spondylosis with radiculopathy, cervical region (principal); M50.122 Cervical disc disorder at C5-C6 level with radiculopathy; M99.71 Connective tissue and disc stenosis of intervertebral foramina of cervical region
CPT/HCPCS: 72125

== ENCOUNTER 2024-02-23 08:44 | Day surgery (SDC) | payer BC, OTHER ==
--- NOTE | 2024-02-23 07:50 | P.GSHP ---
History of Present Illness H&P Date: 02/23/24 CHIEF COMPLAINT: GERD and colon screen HISTORY OF PRESENT ILLNESS: The patient is a 58-year-old female who presents with gastroesophageal reflux disease and need for colon screen. Upper and lower endoscopy were offered for further evaluation and management. PAST MEDICAL HISTORY: Please see list. PAST SURGICAL HISTORY: Please see list. MEDICATIONS: Please see list. ALLERGIES: Please see list. SOCIAL HISTORY: No illicit drug use FAMILY HISTORY: No reports of Crohn disease or ulcerative colitis. REVIEW OF ORGAN SYSTEMS: CONSTITUTIONAL: No reports of fevers or chills. GI: Denies any blood in stools or constipation. PHYSICAL EXAM: VITAL SIGNS: Stable GENERAL: Well-developed pleasant in no acute distress. HEENT: No scleral icterus. Extraocular movements grossly intact. Moist buccal mucosa. NECK: Supple without lymphadenopathy. CHEST: Unlabored respirations. Equal bilateral excursions. CARDIOVASCULAR: Regular rate and rhythm. Distal 2+ pulses. ABDOMEN: Soft, nondistended. MUSCULOSKELETAL: No clubbing, cyanosis, or edema. ASSESSMENT: 1. Gastroesophageal reflux disease 2. Colon screen. PLAN: 1. Recommend proceeding with an upper and lower endoscopy Past Medical History Past Medical History: CVA/TIA, Hypertension, Osteoarthritis (OA) Additional Past Medical History / Comment(s): RECTAL PROLAPSE, TIA 2008-NO RESIDUAL EFFECT,UTI; 2 herniated cervical discs, HYPOGLYCEMIA-EATS FREQUENTLY, bugling disc and bone spurs 4 different levels. IRON DEFICIENCY ANEMIA. History of Any Multi-Drug Resistant Organisms: None Reported Past Surgical History: Back Surgery, Bariatric Surgery, Hysterectomy, Orthopedic Surgery Additional Past Surgical History / Comment(s): GASTRIC BYPASS, PAIN CLINIC PROCEDURES lumbar surgery, Past Anesthesia/Blood Transfusion Reactions: Previous Problems w/ Anesthesia Additional Past Anesthesia/Blood Transfusion Reaction / Comment(s): WOKE UP DURING LAST PAIN CLINIC PROCEDURE Smoking Status: Never smoker - Past Family History Father Family Medical History: Congestive Heart Failure (CHF), Diabetes Mellitus Mother Family Medical History: Cancer, Deep Vein Thrombosis (DVT), Rheumatoid Arthritis (RA) Additional Family Medical History / Comment(s): COLON CANCER, LUPUS Medications and Allergies Home Medications Medication Instructions Recorded Confirmed Type Dextroamphetamine/Amphetamine 25 mg PO QAM 02/12/17 11/30/22 History [Adderall Xr] DULoxetine HCL [Cymbalta] 60 mg PO DAILY 06/26/21 11/30/22 History Losartan [Cozaar] 1 tab PO DAILY 06/26/21 11/30/22 History 5htp 1 tab PO DAILY 11/11/22 11/30/22 History Balance Nature Fruit.Veg 1 tab PO DAILY 11/11/22 11/30/22 History Gabapentin 300 mg PO TID 11/11/22 11/30/22 History Magnesium 250 mg PO DAILY 11/11/22 11/30/22 History Multivitamins, Thera [Multivitamin 1 tab PO DAILY 11/11/22 11/30/22 History (formulary)] S-Adenosylmethionine Sul Tosyl 400 mg PO DAILY 11/11/22 11/30/22 History [Thierno-E] Tumeric 1 tab PO DAILY 11/11/22 11/30/22 History Vit D 1 tab PO DAILY 11/11/22 11/30/22 History Allergies Allergy/AdvReac Type Severity Reaction Status Date / Time No Known Allergies Allergy Verified 11/30/22 09:44
[2024-02-23] MEDS: IV FLUID CONTINUATION 1,000 ML IV ONE ×2 (09:31→11:30)
[2024-02-23 09:33] VITALS: RESP 16; TEMP 98
[2024-02-23] MEDS ORDERED: PROPOFOL 10 MG/ML 20 ML VIAL IV ONE (09:57)
--- NOTE | 2024-02-23 10:44 | P.PCN ---
Date of Procedure: 02/23/24 Description of Procedure: PREOPERATIVE DIAGNOSIS: Colonoscopy screening POSTOPERATIVE DIAGNOSIS: Tubular adenoma ascending colon Sigmoid diverticulosis OPERATION: Colonoscopy to the ascending colon Colonoscopy with hot snare polypectomy SURGEON: María Fernández MD. ANESTHESIA: MAC. INDICATIONS: The patient is an 58-year-old female who for colonoscopy screening. Last colonoscopy 5 years. Benefits and risks were described and informed consent was obtained. DESCRIPTION OF PROCEDURE: The patient had undergone Sutab prep. The patient had been brought into the operating room and laid in the left lateral decubitus position. After adequate intravenous sedation, the rectum was examined with 2% lidocaine jelly. The prostate was unremarkable. No external hemorrhoids were encountered. The rectal tone was within normal limits. No lesions were palpated in the rectal vault. An Olympus colonoscope was advanced to the ascending colon despite abdominal wall pressure and moderate redundancy of the sigmoid colon. The appendiceal orifice was not visualized. The prep was excellent. Sigmoid diverticulosis was encountered. Colonic polyps were found and removed. No evidence of focal colitis was found. Retroflexion of the scope demonstrated grade 2 internal hemorrhoids without active bleeding or inflammation. The colon was desufflated. The patient had tolerated the procedure well. Withdrawal time was over 6 minutes. FINDINGS: Aronchick preparation quality scale 1 (1-5) Internal hemorrhoids, grade 1 No external hemorrhoids No arteriovenous malformations. Sigmoid diverticulosis Highly redundant sigmoid colon Removal of 1 polyp: - Snare polypectomy ascending colon, 8 mm tubulovillous adenoma No focal colitis. RECOMMENDATIONS: Repeat colonoscopy 3 years, 2026 Plan - Discharge Summary New Discharge Prescriptions: Continue Dextroamphetamine/Amphetamine [Adderall Xr] 25 mg PO QAM Losartan [Cozaar] 1 tab PO DAILY DULoxetine HCL [Cymbalta] 60 mg PO DAILY Gabapentin 300 mg PO TID Multivitamins, Thera [Multivitamin (formulary)] 1 tab PO DAILY 5htp 1 tab PO DAILY Balance Nature Fruit.Veg 1 tab PO DAILY Vit D 1 tab PO DAILY Magnesium 250 mg PO DAILY S-Adenosylmethionine Sul Tosyl [Thierno-E] 400 mg PO DAILY Discontinued Tumeric 1 tab PO DAILY Discharge Medication List Dextroamphetamine/Amphetamine [Adderall Xr] 25 mg PO QAM 02/12/17 [History] DULoxetine HCL [Cymbalta] 60 mg PO DAILY 06/26/21 [History] Losartan [Cozaar] 1 tab PO DAILY 06/26/21 [History] 5htp 1 tab PO DAILY 11/11/22 [History] Balance Nature Fruit.Veg 1 tab PO DAILY 11/11/22 [History] Gabapentin 300 mg PO TID 11/11/22 [History] Magnesium 250 mg PO DAILY 11/11/22 [History] Multivitamins, Thera [Multivitamin (formulary)] 1 tab PO DAILY 11/11/22 [History] S-Adenosylmethionine Sul Tosyl [Thierno-E] 400 mg PO DAILY 11/11/22 [History] Vit D 1 tab PO DAILY 11/11/22 [History] [facility] up [facility]ment(s[facility] [place] [facility] - 03/08/24 3:00 pm Patient Instructions/Handouts: Diverticulosis (GEN), Diverticulosis Diet (GEN), Colorectal Polyps (GEN) Activity/Diet/Wound Care/Special Instructions: Repeat colonoscopy 3 years, 2026 Discharge Disposition: HOME SELF-CARE
--- NOTE | 2024-02-23 10:48 | P.PCN ---
Date of Procedure: 02/23/24 Description of Procedure: PREOPERATIVE DIAGNOSES: 1. Dysphagia 2. Morbid obesity due to excess calories, BMI 54.2 3. History of Santiago-en-Y gastric bypass POSTOPERATIVE DIAGNOSES: 1. Dysphagia 2. Morbid obesity due to excess calories, BMI 54.2 3. History of Santiago-en-Y gastric bypass 4. Gastritis PROCEDURE PERFORMED: Esophagogastrojejunoscopy with biopsies on the gastric pouch, jejunum, esophagus. SURGEON: María Fernández MD ANESTHESIA: MAC. INDICATIONS: The patient is a 58-year-old female with prior history of Santiago-en-Y gastric bypass perform an outside institution. She presents with dysphagia. With her history of Santiago-en-Y gastric bypass, upper endoscopy was offered for further evaluation and management. Benefits and risks described. Informed consent was obtained. DESCRIPTION: Patient was brought to the endoscopy suite and laid in the left lateral decubitus position. After adequate IV sedation, a bite block was placed. An Olympus gastroscope was passed along the posterior oropharynx down to the distal esophagus where the squamocolumnar junction was found at approximately 38 cm from the incisors. The diaphragmatic hiatus was found at 38 cm from the incisors. Her anastomosis was found at 42 cm, consistent with approximately 4 cm gastric pouch. A diaphragmatic hiatal hernia of 3 cm was confirmed. No evidence of foreign body was found. No active gastrojejunal ulceration acute was encountered. Biopsies along the gastric pouch, esophagus, jejunum. The scope was passed to 60 cm of the Santiago limb. No remnant of blind jejunal limb was retained. The GI tract was desufflated. The patient tolerated the procedure well. FINDINGS: 1. No acute gastrojejunal ulceration 2. No foreign body found along the anastomosis. 3. No elongated jejunal blind pouch. 4. Squamocolumnar junction at 38 cm from the incisors. 5. Biopsies obtained of jejunum 6. Hiatal hernia 3 cm fixed. 7. Anastomosis at 42 cm from the incisors. 8. Gastric pouch 4 cm. 9. Chronic gastritis of the gastric pouch, biopsies obtained. 10. Biopsies obtained of esophagus PLAN: 1. Recommend barium upper GI for further assessment
[2024-02-23] MEDS: ACETAMINOPHEN TAB 500 MG TAB PO STA (11:15)
[2024-02-23 11:36] VITALS: BP 116/72; PULSE 64
[2024-02-23] MEDS: fentaNYL (PF) 50 MCG/ML 2 ML AMP IVP PRN (11:36)
[2024-02-23] MEDS: SODIUM CHLORIDE 0.9% 1,000 ML IV ONE (11:37)
[2024-02-23] MEDS: BUTALB/APAP/CAFF 50-325-40MG TAB PO STA ×2 (12:02→12:05)
[2024-02-23] MEDS: SUMAtriptan succinate 6 MG/0.5 ML VIAL SQ STA (12:02)
== END 2024-02-23 12:39 | disposition home or self-care (01) ==
LOC: ORWHC2ENDO 08:44
PROVIDERS: ATTEND Surgery Plastic and Reconstructive Surgery
DX: Z12.11 Encounter for screening for malignant neoplasm of colon (principal); K29.50 Unspecified chronic gastritis without bleeding; D12.3 Benign neoplasm of transverse colon; D12.2 Benign neoplasm of ascending colon; E66.01 Morbid (severe) obesity due to excess calories; I10 Essential (primary) hypertension; K21.9 Gastro-esophageal reflux disease without esophagitis; K57.30 Diverticulosis of large intestine without perforation or abscess without bleeding; M19.90 Unspecified osteoarthritis, unspecified site; Z68.43 Body mass index [BMI] 50.0-59.9, adult; Z79.899 Other long term (current) drug therapy; Z80.0 Family history of malignant neoplasm of digestive organs; Z86.73 Personal history of transient ischemic attack (TIA), and cerebral infarction without residual deficits; Z90.710 Acquired absence of both cervix and uterus; Z98.84 Bariatric surgery status
CPT/HCPCS: 88305; 45385; 43239; J3030; J3010; J2704

== ENCOUNTER → 2024-03-22 | Outpatient (CLI) | payer BC ==
--- NOTE | 2024-03-22 12:45 | FL ---
EXAMINATION TYPE: FL UGI air w esophagus DATE OF EXAM: 03/22/2024 9:51 AM COMPARISON: NONE CLINICAL HISTORY: Difficulty in swallowing. FLUORO TIME: 46 SEC DAP: 1197.60 Upper GI examination was performed according to the single contrast technique. Esophageal peristalsis and motility are within normal limits. There is no evidence for esophagitis, intraluminal mass or g astroesophageal reflux. Small hiatal hernia seen. There is evidence of gastric bypass in the pharynx and 8. Loops within normal limits. And single contrast cervical esophagram was also performed following the ingestion of thin liquid bar ium. Plate fixation noted from anterior cervical discectomy and fusion extending from C5 through C7. There is no evidence for aspiration or penetration. No masses are seen. No filling defects are grant dent. IMPRESSION: Small hiatal hernia.
== END | disposition home or self-care (01) ==
LOC: RADUSWWP 09:01
PROVIDERS: ATTEND Surgery Plastic and Reconstructive Surgery
DX: R13.10 Dysphagia, unspecified (principal); K44.9 Diaphragmatic hernia without obstruction or gangrene
CPT/HCPCS: 74246